=== PATIENT | female | born 1975 | race Caucasian/White ===

== ENCOUNTER 2017-07-20 10:18 | Inpatient (IN) | payer OTHER ==
[2017-07-20 11:32] VITALS: BMI 23.9
--- NOTE | 2017-07-20 15:44 | HP ---
COWS - Scale Resting Pulse: 1= [place] 81-100 Sweatin= Chills/Flushing Restless Observation: 3= Extraneous Movement Pupil Size: 2= Moderately Dilated Bone or Joint Aches: 4=Acute Joint/Muscle Pain Runny Nose/ Eye Tearin= Nasal Congestion GI Upset > 30mins: 0= None Tremor Observation: 2= Slight Tremor Visible Yawning Observation: 1= 1-2x During Session Anxiety or Irritability: 2=Irritable/Anxious Goose Flesh Skin: 0=Smooth Skin COWS Score: 17 CIWA Score - CIWA Score Nausea/Vomitin-Int. Nausea w/Dry Heave Muscle Tremors: 4-Moderate,w/Arms Extend Anxiety: 4-Mod. Anxious/Guarded Agitation: 4-Moderately Restless Paroxysmal Sweats: 1-Minimal Palms Moist Orientation: 0-Oriented Tacttile Disturbances: 3-Moderate Itch/Numb/Burn Auditory Disturbances: 0-None Visual Disturbances: 0-None Headache: 1-Very Mild CIWA-Ar Total Score: 21 Admission ROS S - HPI Chief Complaint: WITHDRAWAL SX Allergies/Adverse Reactions: Allergies Allergy/AdvReac Type Severity Reaction Status Date / Time Fish Containing Products Allergy Severe Itching Verified 07/20/17 12:03 No Known Drug Allergies Allergy Verified 07/20/17 16:10 History of Present Illness: 42 Y/O FEMALE WITH A HX OF HEROIN,XANAX AND COCAINE DEPENDENCE SEEK [facility] [place]. Exam Limitations: No Limitations - Ebola screening Have you traveled outside of the country in the last 21 days: No Have you had contact with anyone from an Ebola affected area: No Have you been sick,other than usual withdrawal symptoms: No - Review of Systems Constitutional: Chills, Loss of Appetite, Night Sweats, Changes in sleep EENT: reports: Blurred Vision (WEARS), Tearing, Nose Congestion, Dental Problems (TOOTH ACHE) Respiratory: reports: Shortness of Breath (ASTHMA/COPD), Wheezing Cardiac: reports: Lightheadedness GI: reports: Constipated, Diarrhea, Nausea, Poor Appetite, Poor Fluid Intake, Vomiting, Abdominal cramping : reports: No Symptoms Reported Musculoskeletal: reports: Back Pain, Joint Pain, Muscle Pain Integumentary: reports: Bruising (IVD INJ SITES ON LEFT NECK AND BOTH ARMS) Neuro: reports: Headache, Numbness, Tingling, Tremors, Unsteady Gait, Dizziness Endocrine: reports: No Symptoms Reported Hematology: reports: No Symptoms Reported Psychiatric: reports: Orientated x3, Anxious, Depressed Other Systems: Reviewed and Negative Patient History - Patient Medical History Hx Anemia: No Hx Asthma: Yes (MDI) Hx Chronic Obstructive Pulmonary Disease (COPD): Yes Hx Cancer: No Hx Cardiac Disorders: No Hx Congestive Heart Failure: No Hx Hypertension: No Hx Hypercholesterolemia: No Hx Pacemaker: No HX Cerebrovascular Accident: No Hx Seizures: No Hx Dementia: No Hx Diabetes: No Hx Gastrointestinal Disorders: No Hx Liver Disease: No Hx Genitourinary Disorders: No Hx Sexually Transmitted Disorders: No Hx Renal Disease (ESRD): No Hx Thyroid Disease: No Hx Human Immunodeficiency Virus (HIV): No (NEGATIVE HX) Hx Hepatitis C: No Hx Depression: Yes (ON MED) Hx Suicide Attempt: No (DENIES) Hx Bipolar Disorder: No Hx Schizophrenia: No - Patient Surgical History Past Surgical History: No Hx Neurologic Surgery: No Hx Cataract Extraction: No Hx Cardiac Surgery: No Hx Lung Surgery: No Hx Breast Surgery: No Hx Breast Biopsy: No Hx Abdominal Surgery: No Hx Appendectomy: No Hx Cholecystectomy: No Hx Genitourinary Surgery: No Hx Section: No Hx Orthopedic Surgery: No Anesthesia Reaction: No - PPD History Previous Implant?: Yes Documented Results: Negative w/proof Implanted On Prior [facility] Admission?: Yes Date: 03/28/14 Results: 0 mm PPD to be Administered?: Yes - Reproductive History Patient is a Female of Child Bearing Age (11 -55 yrs old): Yes Last Menstrual Period: 07/10/17 Patient : No - Smoking Cessation Smoking history: Current every day smoker Have you smoked in the past 12 months: Yes Aproximately how many cigarettes per day: 20 Hx Chewing Tobacco Use: No Initiated information on smoking cessation: Yes 'Breaking Loose' booklet given: 07/20/17 - Substance & Tx. History Hx Alcohol Use: Yes (4 JACQUELYN/TWISTED) Hx Substance Use: Yes Substance Use Type: Alcohol, Cocaine, Heroin Hx Substance Use Treatment: Yes (LAST TX AT [facility]) - Substances Abused Heroin Route: Injection Frequency: Daily Amount used: 10-15 bags Age of first use: 34 Date of Last Use: 07/19/17 Cocaine Route: Injection Frequency: Daily Amount used: $60 Age of first use: 17 Date of Last Use: 07/20/17 Alochol-4 jacquelyn/twisted tea Route: Oral Frequency: 3-6 times per week Amount used: 1 (24 oz.)/1-6 pk. Age of first use: 15 Date of Last Use: 07/20/17 Xanax Route: Oral Frequency: 1-2 times per week Amount used: 4 mg. Age of first use: 40 Date of Last Use: 07/16/17 Family Disease History - Family Disease History Family Disease History: Diabetes: Father, Mother, Heart Disease: Father, Mother , CA: Father, Mother, Respiratory: Mother, Other: Father, Mother Admission Physical Exam S - Vital Signs Vital Signs: Vital Signs - 24 hr 07/20/17 11:28 Temperature 98.8 F Pulse Rate 86 Respiratory 18 Rate Blood Pressure 140/76 - Physical General Appearance: Yes: Moderate Distress, Irritable, Anxious HEENTM: Yes: EOMI, Normocephalic, BERRY, Pharynx Normal, Nasal Congestion, Rhinorrhea Respiratory: Yes: Chest Non-Tender, Lungs Clear, Normal Breath Sounds, No Respiratory Distress Breast: Yes: Breast Exam Deferred Cardiology: Yes: Regular Rhythm, Regular Rate, S1, S2 Abdominal: Yes: Normal Bowel Sounds, Non Tender, Flat Genitourinary: Yes: Other (N/C) Back: Yes: Within Normal Limits Musculoskeletal: Yes: full range of Motion, Gait Steady Extremities: Yes: Normal Range of Motion, Non-Tender Neurological: Yes: events intern II-XII NML intact, Fully Oriented, Alert, Motor Strength 5/5 Integumentary: Yes: Dry, Warm, Track [place] (LEFT NECK AND BOTH ARMS.) Lymphatic: Yes: Within Normal Limits - Diagnostic (1) Asthma Current Visit: Yes Status: Chronic Qualifiers: Asthma severity: mild Asthma persistence: unspecified Asthma complication type: uncomplicated (2) Cocaine dependence Current Visit: Yes Status: Chronic Qualifiers: Substance use status: uncomplicated Qualified Code(s): F14.20 - Cocaine dependence, uncomplicated (3) Nicotine dependence Current Visit: Yes Status: Acute Qualifiers: Nicotine product type: cigarettes Substance use status: uncomplicated Qualified Code(s): F17.210 - Nicotine dependence, cigarettes, uncomplicated (4) Opioid dependence with withdrawal Current Visit: Yes Status: Chronic (5) Alcohol dependence with uncomplicated withdrawal Current Visit: Yes Status: Chronic (6) Sedative, hypnotic or anxiolytic dependence with withdrawal, uncomplicated Current Visit: Yes Status: Chronic Comment: TOXICOLOGY NEGATIVE TODAY (7) COPD (chronic obstructive pulmonary disease) Current Visit: Yes Status: Chronic Cleared for Admission [facility] - Detox or Rehab [facility] Level of Care: Medically Managed Detox Regimen/Protocol: Methadone/Valium (REQUESTING VALIUM INSTEAD OF LIBRIUM.) [facility] Breath Alcohol Content Breath Alcohol Content: 0 Urine Pregancy Test - Result Urine Test Results: Negative- NO Line Present Urine Drug Screen - Results Drug Screen Negative: No Urine Drug Screen Results: NEHA-Cocaine, OPI-Opiates, OXY-Oxycodone
[2017-07-20] MEDS ORDERED: MAGNESIUM CITRATE 300 ML BOTTLE PO PRN (16:01)
[2017-07-20] MEDS ORDERED: LOPERAMIDE HCL 2 MG CAPSULE PO PRN (16:01)
[2017-07-20] MEDS ORDERED: MENTHOL/PHENOL 1 EACH UD MM PRN (16:01)
[2017-07-20] MEDS ORDERED: MAG HYDROX/AL HYDROX/SIMETH 30 ML UNIT-DOSE CUP PO PRN (16:01)
[2017-07-20] MEDS ORDERED: ACETAMINOPHEN 325 MG TABLET (FP) PO PRN (16:01)
[2017-07-20] MEDS ORDERED: NICOTINE POLACRILEX 4 MG GUM BC PRN (16:01)
[2017-07-20] MEDS ORDERED: guaiFENesin/D-METHORPHAN HB 10 ML UNIT-DOSE CUPS PO PRN (16:01)
[2017-07-20] MEDS ORDERED: MAGNESIUM HYDROX 2400MG/30ML ORAL SUSPENSION 30 ML CUP PO PRN (16:01)
[2017-07-20] MEDS ORDERED: IBUPROFEN 400 MG TABLET (FP) PO PRN (16:01)
[2017-07-20] MEDS ORDERED: P-EPHED 60MG/TRIPROLIDI 2.5MG TABLET PO PRN (16:01)
[2017-07-20] MEDS ORDERED: ALBUTEROL SO4 18 GM HFA INHALER IH PRN (16:09)
[2017-07-20] MEDS ORDERED: diazePAM 5 MG TABLET PO ONE (17:00)
[2017-07-20] MEDS ORDERED: METHADONE HCL 10 MG TABLET (FOR DETOX USE ONLY) PO ONE ×2 (17:00→23:00)
[2017-07-20] MEDS: GABAPENTIN 300 MG CAPSULE (FP) PO SCH ×2 (17:03→22:25)
[2017-07-20] MEDS: LEVOFLOXACIN 500 MG TABLET (FP) PO SCH (17:03)
[2017-07-20] MEDS: BACITRACIN 0.9 GM PACKET TP SCH (17:08)
[2017-07-20] MEDS: NICOTINE 21 MG/24 HOURS TOPICAL PATCH TD SCH (17:12)
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
[2017-07-20 21:21] LABS: ALBUMIN 3.7 g/dl (3.4-5.0); ANION GAP 4 (8-16); BLOOD UREA NITROGEN 23 mg/dL (7-18); CHLORIDE 103 mmol/L (98-107); CO2 33 mmol/L (21-32); GLUCOSE,RANDOM 103 mg/dL (74-106); SODIUM 140 mmol/L (136-145)
[2017-07-20 21:23] LABS: ALK PHOS 97 U/L (45-117); BILIRUBIN,TOTAL 0.3 mg/dL (0.2-1.0); CREATININE 0.9 mg/dL (0.55-1.02); SGOT/AST 38 U/L (15-37); SGPT/ALT 84 U/L (12-78); TOT PROT 7.4 g/dl (6.4-8.2)
[2017-07-20] MEDS: diazePAM 5 MG TABLET PO SCH (22:25)
[2017-07-20] MEDS: THIAMINE HCL 100 MG TABLET (FP) PO SCH (22:25)
[2017-07-20] MEDS: CYCLOBENZAPRINE HCL 10 MG TABLET (FP) PO SCH (22:26)
[2017-07-20] MEDS: QUEtiapine FUMARATE 50 MG TABLET PO SCH (22:26)
[2017-07-21 01:34] LABS: URINE APPEARANCE CLOUDY; URINE BILIRUBIN NEGATIVE (NEGATIVE); URINE BLOOD NEGATIVE (NEGATIVE); URINE GLUCOSE (UA) NEGATIVE (NEGATIVE); URINE KETONE NEGATIVE (NEGATIVE); URINE NITRITE NEGATIVE (NEGATIVE); URINE UROBILINOGEN NEGATIVE mg/dL (0.2-1.0)
[2017-07-21 01:46] LABS: URINE COLOR YELLOW; URINE LEUK ESTERASE 3+ (NEGATIVE); URINE PROTEIN 1+ (NEGATIVE)
[2017-07-21 01:59] LABS: CALCIUM OXALATE CRYSTALS FEW /hpf (NONE SEEN); EPI CELLS MANY /HPF (FEW); URINE BACTERIA RARE /hpf (NONE SEEN); URINE MUCUS FEW
[2017-07-21] MEDS: diazePAM 5 MG TABLET PO SCH ×3 (06:35→22:15)
[2017-07-21] MEDS: LEVOFLOXACIN 500 MG TABLET (FP) PO SCH (06:35)
[2017-07-21] MEDS: GABAPENTIN 300 MG CAPSULE (FP) PO SCH ×3 (06:35→22:15)
[2017-07-21] MEDS ORDERED: PRENATAL VITAMINS W/ FOLIC ACID TABLET (FP) PO SCH (10:00)
[2017-07-21] MEDS ORDERED: METHADONE HCL 10 MG TABLET (FOR DETOX USE ONLY) PO SCH (10:00)
--- NOTE | 2017-07-21 10:08 | EKG ---
Test Reason : Blood Pressure : / mmHG Vent. Rate : 061 BPM Atrial Rate : 061 BPM P-R Int : 154 ms QRS Dur : 076 ms QT Int : 396 ms P-R-T Axes : 070 061 038 degrees QTc Int : 398 ms NORMAL SINUS RHYTHM NORMAL ECG NO PREVIOUS ECGS AVAILABLE Confirmed by CY MCWILLIAMS, EMMANUEL ([id number]) on 07/21/2017 10:08:35 AM Referred By: Confirmed By:EMMANUEL BENOIT MD
[2017-07-21 10:10] LABS: HEMATOCRIT 38.1 % (32.4-45.2); HEMOGLOBIN 12.4 GM/dL (10.7-15.3); MCHC 32.6 g/dl (32.0-36.0); MEAN CELL VOLUME 88.9 fl (80-96); MEAN PLT VOLUME 9.4 fl (7.5-11.1); PLATELET COUNT 250 K/MM3 (134-434); RBC 4.28 M/mm3 (3.60-5.2); RDW 14.6 % (11.6-15.6); WHITE BLOOD COUNT 9.7 K/mm3 (4.0-10.0)
--- NOTE | 2017-07-21 11:01 | PN ---
[facility] CIWA - CIWA Score Nausea/Vomitin-No Nausea/No Vomiting Muscle Tremors: 4-Moderate,w/Arms Extend Anxiety: 3 Agitation: 3 Paroxysmal Sweats: 3 Orientation: 0-Oriented Tacttile Disturbances: 0-None Auditory Disturbances: 0-None Visual Disturbances: 0-None Headache: 1-Very Mild CIWA-Ar Total Score: 14 BHS COWS - Scale Resting Pulse: 0= RI 80 or Below Sweatin=Flushed/Facial Moisture Restless Observation: 1= Difficult to Sit Still Pupil Size: 0= Normal to Room Light Bone or Joint Aches: 2= Severe Diffuse Aches Runny Nose/ Eye Tearin= Runny Nose/Eyes GI Upset > 30mins: 0= None Tremor Observation of Outstretched Hands: 2= Slight Tremor Visible Yawning Observation: 2= >3x During Session Anxiety or Irritability: 2=Irritable/Anxious Goose Flesh Skin: 0=Smooth Skin COWS Score: 13 S Progress Note (SOAP) Subjective: sweats shakes interrupted sleep agitation anxiety body aches Objective: 07/21/17 11:00 Vital Signs Temperature 98.3 F 07/21/17 06:19 Pulse Rate 68 07/21/17 06:19 Respiratory Rate 16 07/21/17 06:19 Blood Pressure 113/61 07/21/17 06:19 O2 Sat by Pulse Oximetry (%) Laboratory Tests 07/20/17 07/20/17 07/21/17 13:00 23:35 05:45 WBC 9.7 RBC 4.28 Hgb 12.4 Hct 38.1 MCV 88.9 MCH 29.0 MCHC 32.6 RDW 14.6 Plt Count 250 MPV 9.4 Sodium 140 Potassium 4.0 Chloride 103 Carbon Dioxide 33 H Anion Gap 4 L BUN 23 H Creatinine 0.9 D Creat Clearance w eGFR > 60 Random Glucose 103 Calcium 9.0 Total Bilirubin 0.3 AST 38 H ALT 84 H D Alkaline Phosphatase 97 D Total Protein 7.4 Albumin 3.7 Urine Color Yellow Urine Appearance Cloudy Urine pH 5.0 Ur Specific [place] 1.027 Urine Protein 1+ H Urine Glucose (UA) Negative Urine Ketones Negative Urine Blood Negative Urine Nitrite Negative Urine Bilirubin Negative Urine Urobilinogen Negative Ur Leukocyte Esterase 1+ H Urine WBC (Auto) 227 Urine RBC (Auto) 38 Ur Epithelial Cells Many Calcium Oxalate Crystal Few Urine Bacteria Rare Urine Mucus Few repeat u/a aaox3 ambulating no acute distress Assessment: 07/21/17 11:00 withdrawal sx Plan: continue detox increase fluids labs pending
[2017-07-21] MEDS: BACITRACIN 0.9 GM PACKET TP SCH (11:05)
[2017-07-21] MEDS: diazePAM 5 MG TABLET PO PRN ×2 (11:05→15:52)
[2017-07-21] MEDS: CYCLOBENZAPRINE HCL 10 MG TABLET (FP) PO SCH ×2 (11:05→22:15)
[2017-07-21] MEDS: NICOTINE 21 MG/24 HOURS TOPICAL PATCH TD SCH (11:06)
[2017-07-21] MEDS ORDERED: FLU VACCINE QUAD 60 MCG/0.5 ML (MDV 17-18) IM ONE (12:00)
[2017-07-21] MEDS: hydrOXYzine PAMOATE 50 MG CAPSULE (FP) PO PRN ×2 (15:52→20:35)
[2017-07-21 17:44] LABS: URINE APPEARANCE CLOUDY; URINE BILIRUBIN NEGATIVE (NEGATIVE); URINE BLOOD NEGATIVE (NEGATIVE); URINE COLOR YELLOW; URINE GLUCOSE (UA) NEGATIVE (NEGATIVE); URINE KETONE NEGATIVE (NEGATIVE); URINE NITRITE NEGATIVE (NEGATIVE); URINE PROTEIN NEGATIVE (NEGATIVE); URINE UROBILINOGEN NEGATIVE mg/dL (0.2-1.0)
[2017-07-21 17:45] LABS: URINE LEUK ESTERASE 3+ (NEGATIVE)
[2017-07-21 18:05] LABS: EPI CELLS MANY /HPF (FEW); URINE BACTERIA RARE /hpf (NONE SEEN); URINE MUCUS RARE
[2017-07-21] MEDS: QUEtiapine FUMARATE 50 MG TABLET PO SCH (22:15)
[2017-07-21] MEDS: THIAMINE HCL 100 MG TABLET (FP) PO SCH (22:15)
[2017-07-22] MEDS: LEVOFLOXACIN 500 MG TABLET (FP) PO SCH (05:49)
[2017-07-22] MEDS: GABAPENTIN 300 MG CAPSULE (FP) PO SCH (05:49)
[2017-07-22] MEDS: diazePAM 5 MG TABLET PO PRN (05:52)
[2017-07-22 06:34] VITALS: BP 142/88; PULSE 69; TEMP 96.4
[2017-07-22] MEDS: hydrOXYzine PAMOATE 50 MG CAPSULE (FP) PO PRN (08:12)
--- NOTE | 2017-07-22 09:27 | PN ---
Psychiatric Progress Note Vital Signs: Vital Signs Period Temp Pulse Resp BP Sys/Cameron Pulse Ox Last 24 Hr 96.4 F-98.2 F 69-88 16- 102-142/54-88 Date of Session: 07/22/17 Chief Complaint:: Anxiety, irritability, agitation HPI: As per patient reports she has been taking prior to admission: Seroquel 100mg po bid. Trazodone 100mg po qhs Current Medications: Active Medications Generic Name Dose Route Start Last Admin Trade Name Freq PRN Reason Stop Dose Admin Acetaminophen 650 mg 07/20/17 16:01 Tylenol - PO Q4H PRN FEVER OR PAIN Al Hydroxide/Mg Hydroxide 30 ml 07/20/17 16:01 07/20/17 17:05 Mylanta Oral Suspension - PO 30 ml Q6H PRN Administration DYSPEPSIA Albuterol Sulfate 2 puff 07/20/17 16:09 07/21/17 22:28 Ventolin Hfa Inhaler - IH 2 puff Q4H PRN Administration ASTHMA Bacitracin 0.9 gm 07/20/17 17:00 07/21/17 11:05 Bacitracin - TP 0.9 gm DAILY MARISEL Administration Cyclobenzaprine HCl 10 mg 07/20/17 22:00 07/21/17 22:15 Flexeril - PO 10 mg BID MARISEL Administration Diazepam 5 mg 07/22/17 10:00 Valium - PO 07/23/17 22:01 BID MARISEL Diazepam 5 mg 07/24/17 10:00 Valium - PO 07/24/17 10:01 DAILY MARISEL Diazepam 10 mg 07/20/17 16:12 07/22/17 05:52 Valium - PO 07/23/17 16:14 10 mg Q4H PRN Administration WITHDRAWAL(CONT SUBST) Eucalyptus/Menthol/Phenol/Sorbitol 1 each 07/20/17 16:01 Cepastat Lozenge - MM Q4H PRN SORE THROAT Gabapentin 300 mg 07/20/17 17:00 07/22/17 05:49 Neurontin - PO 300 mg TID MARISEL Administration Guaifenesin 10 ml 07/20/17 16:01 Robitussin Dm - PO Q6H PRN COUGH Hydroxyzine Pamoate 50 mg 07/21/17 15:36 07/22/17 08:12 Vistaril - PO 50 mg Q4H PRN Administration FOR ITCHING Ibuprofen 400 mg 07/20/17 16:01 07/21/17 18:01 Motrin - PO 400 mg Q6H PRN Administration SEVERE PAIN Levofloxacin 500 mg 07/20/17 17:00 07/22/17 05:49 Levaquin - PO 500 mg DAILY@0600 [facility] Administration Loperamide HCl 4 mg 07/20/17 16:01 Imodium - PO Q6H PRN DIARRHEA Magnesium Citrate 300 ml 07/20/17 16:01 Citroma - PO Q48H PRN CONSTIPATION Magnesium Hydroxide 30 ml 07/20/17 16:01 Milk Of Magnesia - PO DAILY PRN CONSTIPATION Methadone HCl 10 mg 07/24/17 10:00 Dolophine - PO 07/24/17 10:01 DAILY MARISEL Methadone HCl 15 mg 07/22/17 10:00 Dolophine - PO 07/23/17 10:01 DAILY MARISEL Methadone HCl 5 mg 07/25/17 06:00 Dolophine - PO 07/25/17 06:01 DAILY@0600 [facility] Nicotine 21 mg 07/20/17 16:30 07/21/17 11:06 Nicoderm Patch - TD 21 mg DAILY [facility] Administration Nicotine Polacrilex 4 mg 07/20/17 16:01 07/20/17 17:50 Nicorette Gum - BC 4 mg Q2H PRN Administration NICOTINE REPLACEMENT RX Multivit/Folic Acid/Iron 1 tab 07/21/17 10:00 07/21/17 11:05 Vitamins (Sjr) - PO 1 tab DAILY [facility] Administration Pseudoephedrine/Triprolidine 1 combo 07/20/17 16:01 Actifed - PO TID PRN NASAL CONGESTION Quetiapine Fumarate 100 mg 07/22/17 10:00 Seroquel - PO BID MARISEL Thiamine HCl 100 mg 07/20/17 22:00 07/21/17 22:15 Vitamin B1 - PO 100 mg HS [facility] Administration Trazodone HCl 100 mg 07/22/17 22:00 Desyrel - PO HS [facility] Medication(s) Change(s): Seroquel 100mg po bid. Trazodone 100mg po qhs. Vistaril 50mg po p[rn q4 for anxiety Mental Status Exam - Mental Status Exam Alert and Oriented to: Person Cognitive Function: Fair Patient Appearance: Unkempt Mood: Anxious Affect: Labile Patient Behavior: Impulsive Speech Pattern: Excessive Voice Loudness: Mildly Loud Thought Process: Goal Oriented Thought Disorder: Being Controlled Hallucinations: Denies Suicidal Ideation: Denies Homicidal Ideation: Denies Insight/Judgement: Fair Sleep: Difficulty falling asleep Appetite: Fair Muscle strength/Tone: Normal Gait/Station: Normal Additional Comments: Seroquel 100mg po bid. Trazodone 100mg po qhs. Vistaril 50mg po p[rn q4 for anxiety Psychiatric Treatment Plan - Problem List (1) Nicotine dependence Current Visit: Yes Qualifiers: Nicotine product type: cigarettes Substance use status: uncomplicated Qualified Code(s): F17.210 - Nicotine dependence, cigarettes, uncomplicated (2) Opioid dependence on agonist therapy Current Visit: Yes (3) Substance induced mood disorder Current Visit: Yes (4) Alcohol dependence with uncomplicated withdrawal Current Visit: Yes (5) Cocaine dependence Current Visit: Yes Qualifiers: Substance use status: uncomplicated Qualified Code(s): F14.20 - Cocaine dependence, uncomplicated (6) Opioid dependence with withdrawal Current Visit: Yes (7) Sedative, hypnotic or anxiolytic dependence with withdrawal, uncomplicated Current Visit: Yes Comment: TOXICOLOGY NEGATIVE TODAY (8) Substance-induced sleep disorder Current Visit: No (9) Methadone maintenance therapy patient Current Visit: No Initial treatment plan: Seroquel 100mg po bid. Trazodone 100mg po qhs. Vistaril 50mg po p[rn q4 for anxiety
[2017-07-22] MEDS ORDERED: QUEtiapine FUMARATE 100 MG TABLET (FP) PO SCH (10:00)
[2017-07-22] MEDS ORDERED: METHADONE HCL 5 MG TABLET (FOR DETOX USE ONLY) PO SCH (10:00)
[2017-07-22] MEDS ORDERED: diazePAM 5 MG TABLET PO SCH (10:00)
--- NOTE | 2017-07-22 11:36 | PN ---
[facility] Progress Note Note: pt became irrate and yelling to staff I want to leave i am signing out. Pt was spoken to and asked her reason for leaving but she continued to insist on leaving. pt signed out AMA.
--- NOTE | 2017-07-22 11:37 | DS ---
[facility] Detox Discharge Summary Admission Date: 07/20/17 - History Present History: Alcohol Dependence, Cocaine Dependence, Sedative Dependence, MMTP - Physical Exam Results Vital Signs: Vital Signs Temperature 96.4 F L 07/22/17 06:34 Pulse Rate 69 07/22/17 06:34 Respiratory Rate 18 07/22/17 06:34 Blood Pressure 142/88 07/22/17 06:34 O2 Sat by Pulse Oximetry (%) - Medication Discharge Medications: Ambulatory Orders Albuterol Sulfate Inhaler - [Ventolin Hfa *Inhaler*] 2 inh IH Q4H PRN 02/11/12 Trazodone HCl [Desyrel -] 50 mg PO HS 03/26/14 Quetiapine Fumarate [Seroquel] 100 tab PO BID #60 tablet 06/18/16 Cyclobenzaprine HCl [Flexeril -] 10 mg PO BID 07/20/17 Gabapentin [Neurontin] 300 mg PO Q8H 07/20/17 Quetiapine Fumarate [Seroquel Xr] 1 each PO BID #60 [id number] 07/22/17 Trazodone HCl [Desyrel -] 100 mg PO HS #30 tablet 07/22/17 Zolpidem Tartrate [Ambien] 10 mg PO HS #14 tablet MDD 10 07/22/17 - Diagnosis (1) Alcohol dependence with uncomplicated withdrawal Status: Chronic (2) Cellulitis and abscess of neck Status: Acute (3) Cocaine dependence Status: Chronic Qualifiers: Substance use status: uncomplicated Qualified Code(s): F14.20 - Cocaine dependence, uncomplicated (4) Nicotine dependence Status: Acute Qualifiers: Nicotine product type: cigarettes Substance use status: uncomplicated Qualified Code(s): F17.210 - Nicotine dependence, cigarettes, uncomplicated (5) Opioid dependence on agonist therapy Status: Acute (6) Opioid dependence with withdrawal Status: Chronic (7) Sedative, hypnotic or anxiolytic dependence with withdrawal, uncomplicated Status: Chronic (8) Substance induced mood disorder Status: Acute (9) Asthma Status: Chronic Qualifiers: Asthma severity: mild Asthma persistence: unspecified Asthma complication type: uncomplicated Qualified Code(s): J45.909 - Unspecified asthma, uncomplicated (10) Substance-induced sleep disorder Status: Acute (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
[2017-07-22] MEDS ORDERED: traZODone HCL 100 MG TABLET (FP) PO SCH (22:00)
[2017-07-24] MEDS ORDERED: METHADONE HCL 10 MG TABLET (FOR DETOX USE ONLY) PO SCH (10:00)
[2017-07-24] MEDS ORDERED: diazePAM 5 MG TABLET PO SCH (10:00)
[2017-07-25] MEDS ORDERED: METHADONE HCL 5 MG TABLET (FOR DETOX USE ONLY) PO SCH (06:00)
== END 2017-07-22 08:41 | disposition left against medical advice (07) | DRG 770 ==
LOC: YASAS 10:18 → Y6N 13:12
PROVIDERS: ADMIT Internal Medicine; ATTEND Internal Medicine
PROC: HZ2ZZZZ Detoxification Services for Substance Abuse Treatment (ICD-10-PCS; principal; 2017-07-20)
DX: F11.23 Opioid dependence with withdrawal (principal); F13.230 Sedative, hypnotic or anxiolytic dependence with withdrawal, uncomplicated; F10.230 Alcohol dependence with withdrawal, uncomplicated; F14.20 Cocaine dependence, uncomplicated; F17.210 Nicotine dependence, cigarettes, uncomplicated; F19.24 Other psychoactive substance dependence with psychoactive substance-induced mood disorder; F19.282 Other psychoactive substance dependence with psychoactive substance-induced sleep disorder; J45.909 Unspecified asthma, uncomplicated; J44.9 Chronic obstructive pulmonary disease, unspecified; L03.221 Cellulitis of neck; L02.11 Cutaneous abscess of neck; Z91.013 Allergy to seafood
CPT/HCPCS: 36415; 80053; 81003; 81015; 85027; 86593; 86803; 87389; 87522; 90688; 93005; 93010; G0008

== ENCOUNTER 2020-05-13 17:14 | Inpatient (IN) | payer OTHER ==
--- OUTSIDE RECORDS SUMMARY | 2020-05-13 17:22 | XMS ---
:1975 Author Organization [facility] Care Team Providers Name Role Phone Mahdi POPPY Elliott Unavailable Unavailable Mahdi POPPY Elliott Unavailable Unavailable Mahdi POPPY Elliott Unavailable Unavailable Mahdi POPPY Elliott Unavailable Unavailable Mahdi POPPY Elliott Unavailable Unavailable Mahdi POPPY Elliott Unavailable Unavailable Mahdi POPPY Elliott Unavailable Unavailable Rich Sernaaruraanibal Unavailable Unavailable Sabrina Appiah Unavailable Unavailable Landno Irvin Unavailable Unavailable HHCCC, MHAW9 Unavailable Unavailable Albert, Bora Unavailable Unavailable Danyel Lopez Unavailable Unavailable Other, Doctor Unavailable Unavailable Philipp, Codie Unavailable Unavailable Suraj Pozo Unavailable Unavailable Benjamin Kilgore Unavailable Unavailable Re-disclosure Warning The records that you are about to access may contain information from federally- assisted alcohol or drug abuse programs. If such information is present, then the following federally mandated warning applies: This information has been disclosed to you from records protected by federal confidentiality rules (42 CFR part 2). The federal rules prohibit you from making any further disclosure of this information unless further disclosure is expressly permitted by the written consent of the person to whom it pertains or as otherwise permitted by 42 CFR part 2. A general authorization for the release of medical or other information is NOT sufficient for this purpose. The Federal rules restrict any use of the information to criminally investigate or prosecute any alcohol or drug abuse patient.The records that you are about to access may contain highly sensitive health information, the redisclosure of which is protected by Article 27-F of the [facility] Public Health law. If you continue you may haveaccess to information: Regarding HIV / AIDS; Provided by facilities licensed or operated by the [facility] Office of Mental Health; or Provided by the [facility] Office for People With Developmental Disabilities. If such information is present, then the following [facility] mandated warning applies: This information has been disclosed to you from confidential records which are protected by state law. State law prohibits you from making any further disclosure of this information without the specific written consent of the person to whom it pertains, or as otherwise permitted by law. Any unauthorized further disclosure in violation of state law may result in a fine or senior living sentence or both. A general authorization for the release of medical or other information is NOT sufficient authorization for further disclosure. Family History Family Member Family Member Family Member Date of Description Data Source(s) Name Gender Status Status Unknown Male Diagnosis 04/13/2014 [facility] ( 12:00:00 AM Health system EDT Center) Encounters Encounter Providers Location Date Indications Data Source(s ) Outpatient Attender: MHAW9 05/06/2020 [facility] ([facility] 05:44:53 PM [facility] Care EDT Collaborative) Patient admitted. Outpatient Attender: Danyel Reyes-SURG CL 05/01/2020 03:08:53 S - Annalisa Mallory Nnaemeka PM EDT - 05/02/2020 [facility] 11:59:00 PM EDT Patient discharged. Inpatient Attender: Benjamin Caceres 04/28/2020 L03.90 S - Marcelina mensah OranAttender: Suraj 05:22:00 PM EDT Cellulitis a nd Mohamud Heard: Doctor - 04/30/2020 abscess Hospital OtherAdmitter: Benjamin 12:36:00 PM EDT Jame L03.90 Cellulitis and abscess Patient discharged. Inpatient Attender: Landon Reyes-Eric 04/25/2020 L03.90 Cellulitis [facility] - Annalisa Lindattender: Codie 07:05:00 PM EDT - Mohamud Valdivia: 04/27/2020 Hospit al OtherAdmitter: 11:30:00 AM EDT Landon Irvin L03.90 Cellulitis Patient discharged. Outpatient Attender: MHAW9 [facility] 03/02/2020 12:53:54 PM [facility] ([facility] EDT [facility]) Patient admitted. Unlisted evaluation 02/15/2020 03:35:00 [facility] (The Guidance and management EDT [facility]) service Outpatient Attender: MHAW9 10/20/2019 07:05:42 [facility] ([facility] EDT [facility]) Patient admitted. Outpatient 05/03/2019 02:37:32 PM EDT [facility] ([facility]) Patient admitted. Outpatient 05/03/2019 02:37:29 PM EDT [facility] ([facility]) Patient admitted. Outpatient 05/03/2019 02:37:23 PM EDT [facility] ([facility]) Patient admitted. Outpatient 05/03/2019 02:37:20 PM EDT [facility] ([facility]) Patient admitted. Outpatient 05/03/2019 02:30:15 PM EDT [facility] ([facility]) Patient admitted. Outpatient 05/03/2019 02:30:11 PM EDT [facility] ([facility]) Patient admitted. Outpatient Attender: Sabrina Appiah 5T-WOUND 04/04/2019 12:36:01 PM MICHAEL Mallory EDT - 04/07/2019 [facility] 03:48:00 PM EDT Patient discharged. Outpatient Attender: Mahdi Reyes-WOUND 03/30/2019 09:15:10 AM MICHAEL Elliott MD EDT - 03/31/2019 [facility]ospita l 11:59:00 PM EDT Patient discharged. Outpatient Attender: Mahdi Reyes-WOUND 03/23/2019 03:43:14 PM MICHAEL Elliott MD EDT - 03/24/2019 Hospita l 11:59:00 PM EDT Patient discharged. Unlisted evaluation 03/21/2019 JASMIN ART (The and management 03:30:00 PM EDT - [facility] service 05/17/2019 [facility]) 01:00:00 PM EDT Outpatient Attender: Mahdi Reyes-WOUND 03/17/2019 MICHAEL - Marcelinakaty Elliott MD 08:19:11 AM EDT - Hospit al 03/17/2019 11:59:00 PM EDT Patient discharged. Unlisted evaluation 03/10/2019 NETS ART (The and management 01:00:00 PM EDT - [facility] 03/21/2019 [facility]) 03:30:00 PM EDT Outpatient Attender: 5T-WOUND 03/07/2019 S - Marcelina nt Mohamud Elliott MD 01:09:47 PM EDT - Hospit al 03/10/2019 11:59:00 PM EDT Patient discharged. Inpatient Attender: Giacomo Eric-5T 02/27/2019 L03.115 [facility]: Bora 06:55:00 PM EDT Cellu litis of Mohamud DysonAdmitter: - 03/05/2019 leg, right Hospital [facility] 04:35:00 PM EDT L03.115 Cellulitis of leg, right Patient discharged. Medications Medication Brand Start Product Dose Route Administrative Pharmacy at Indications Reaction Description Data Name Date Form Instructions Instructions Source(s) Sulfamethox sulfam F86753 active Sulfa methoxa [facility] azole 800 ethoxa 2019 {tab( zole-Trimeth [facility] MG / zole-t 08:02: s)} oprim DS System Trimethopri rimeth 39 AM m 160 MG oprim EDT Oral Tablet 800 sulfamethox mg-160 azole-trime mg thoprim 800 oral mg-160 mg tablet oral tablet 24 HR nicoti [id number] active Nicoderm C- Q [facility] Nicotine ne 14 2019 {PATC Clear [facility] 0.583 MG/HR mg/24 08:01: H} Syste m Transdermal hr 19 AM Patch transd EDT nicotine 14 ermal mg/24 hr film, transdermal extend film, ed extended releas release e Albuterol [id number] X13129 active Albuter ol [facility] (Eqv-ProAir 62902 2019 {puff (Eqv-ProAir Health HFA) 90 08:00: (s)} HFA) System mcg/inh 26 AM inhalation EDT aerosol Albuterol Ventolin 03/05/2019 1 [id number] completed Ventolin HFA; 1 inhaled 2 times a day MDD:UP TO 6 TIMES/DAY PRN Ordered: 05-Mar-2019 Start: 05-Mar-20 End: 03-Apr-2019 [facility] Ventolin HFA 02:28:53 PM Quantity: 1 Vineet Naylor Status: No Longer Active Health HFA EDT Refills: 0 System Mupirocin mupirocin 03/05/2019 1 {ana} [id number] completed Mupirocin [facility] 0.02 MG/MG 2% topical 02:27:10 PM Health Topical ointment EDT System Ointment mupirocin 2% topical ointment Albuterol 0.833 MG/ML ipratropium-albuterol 03/05/2019 1 [id number] completed ipratropium-albuterol 0.5 mg-2.5 mg/3 mLinhalation solution; 1 inhaled 2 times a day Ordered: 05-Mar-2019 Start: 05-Mar-2019 End: 03-Apr-2019 [facility] / Ipratropium [place] 0.5 mg-2.5 mg/3 02:26:13 PM Quantity: 1 Dayday Vineet Status: No Longer Active Health 0.167 MG/ML Inhalant mLinhalation solution EDT Refills: 0 System Solution ipratropium-albuterol 0.5 mg-2.5 mg/3 mLinhalation solution Acetaminophen acetaminophen 03/05/2019 2 I00401 completed Acetaminophen [facility] 325 MG Oral 325 mg oral 02:25:54 PM {tab(s)} Health Tablet tablet EDT System acetaminophen 325 mg oral tablet Insurance Providers Payer name Policy type / Policy ID Covered Covered alliance party's Policy Plan Coverage type alliance party ID relationship to [employer] Information zacarias [facility] [id number] [facility] Medicaid Medicaid [id number] Medicaid Medicaid [id number] 1 [id number] [facility] Commercial [id number] Medicaid E Medicaid [id number] [facility] MEDICAID [id number] [facility] [place] [id number] SP [id number] [facility] MEDICAID [id number] [facility] [id number] self [id number] [facility] Commercial [id number] Ess Plan 1&2 MVP/HHP O [id number] Problems, Conditions, and Diagnoses Code Display Name Description Problem Type Effective Data Sour ce(s) Dates L03.221 Cellulitis and Cellulitis and 48163-0 05/02/2020 [facility] abscess of neck abscess of neck 12:00:00 AM a [facility] System EDT L02.91 Phlegmon Phlegmon 97737-0 04/28/2020 [facility] 12:00:00 AM Health System EDT L03.90 Cellulitis and Cellulitis and 33579-6 04/28/2020 [facility] abscess abscess 12:00:00 AM Health System EDT R22.1 Neck swelling Neck swelling 98666-2 04/26/2020 [facility] 12:00:00 AM Health System EDT L03.90 Cellulitis Cellulitis 20131-1 [facility]T [id number] Cocaine dependence Cocaine dependence Complaint 9 [facility] (The 07:30:00 PM Guidance EDT Center [facility]) [id number] Alcohol dependence Alcohol dependence Complaint 9 [facility] (The 07:30:00 PM Guidance EDT Center [facility]) [id number] Opioid dependence Opioid dependence Complaint 03/16/2019 [facility] (The 07:10:00 PM Guidance EDT Center [facility]) L03.221 Cellulitis of neck Cellulitis and Diagnosis 05/02/2020 [facility] abscess of neck 03:20:00 PM [facility] [id number] Percutaneous Percutaneous Diagnosis [facility] of 12:00:00 AM [place] posterior neck posterior neck EDT Hospit al subcutaneous subcutaneous tissue and fascia tissue and fascia using drainage using drainage device device F11.10 Opioid abuse, Uncomplicated Diagnosis 04/28/2020 [facility] - [place] unt uncomplicated opioid abuse 07:45:00 PM [facility] F17.200 Nicotine Nicotine Diagnosis 04/28/2020 [facility] dependence, dependence, 07:45:00 PM [place] unspecified, uncomplicated EDT Hospital uncomplicated L03.90 Cellulitis L03.90 Cellulitis Diagnosis 04/28/2020 [facility] and abscess and abscess 07:45:00 PM [facility] L02.91 Cutaneous abscess, Phlegmon Diagnosis 04/28/2020 [facility] unspecified 07:45:00 PM [facility] J44.9 Chronic Chronic Diagnosis 04/28/2020 [facility] obstructive obstructive 07:45:00 PM [place] pulmonary disease, pulmonary disease T [facility] unspecified L03.90 Cellulitis, Cellulitis and Diagnosis 04/28/2020 [facility] Marcelina nt unspecified abscess 07:45:00 PM [facility] GROWTH ON NECK GROWTH ON NECK Diagnosis 04/28/2020 [facility] 05:22:00 PM [facility] F19.90 Other psychoactive Other psychoactive Diagnosis 0 [facility] substance use, substance use, 03:31:00 AM [place] unspecified, uncomplicated T Hospital uncomplicated F11.20 Opioid dependence, Uncomplicated Diagnosis 04/26/2020 [facility] uncomplicated opioid dependence 03:31:00 AM [facility] R22.1 Localized Neck swelling Diagnosis 04/26/2020 [facility] swelling, mass and 03:31:00 AM [place] lump, neck T Hospital L03.90 Cellulitis L03.90 Cellulitis Diagnosis 04/26/2020 [facility] 03:31:00 AM [facility] SWELLING TO SWELLING TO Diagnosis 04/25/2020 [facility] NECK/SHOULDER NECK/SHOULDER 07:05:00 PM [facility] L03.115 Cellulitis of Cellulitis of Diagnosis 04/07/2019 [facility] unt right lower limb right lower limb 12:00:00 AM [facility] Surgeries/Procedures Procedure Description Date Indications Data Source(s) Tissue Exam 04/30/2020 10:00:30 [facility] AM EDT - 04/29/2020 03:40:00 PM EDT Culture, Wound 04/29/2020 04:12:21 [facility] PM EDT - 04/29/2020 03:00:00 PM EDT Source Description: c/a wound left side neck baseSpecimen Description: c/s wound left side neck base Electrocardiographic procedure 04/28/2020 09:13:00 PM [facility] (procedure) EDT - 04/29/2020 System 04:31:06 AM EDT Computed tomography of soft 04/26/2020 02:07:00 AM [facility] tissues of neck (procedure) EDT - 04/26/2020 System 02:07:00 AM EDT C-Reactive Protein Quantitative 04/25/2020 09:21:50 PM [facility] EDT - 04/25/2020 System 11:13:00 PM EDT Sedimentation Rate, Erythrocyte 04/25/2020 09:21:50 PM [facility] EDT - 04/25/2020 System 11:13:00 PM EDT Results ID Date Data Source [id number] 02/27/2019 08:40:00 [facility] Name Value Range Interpretation Description Data Sup porting Code Source(s) Document(s ) Leukocytes 9.8 Normal (applies WBC Count [facility] [#/volume] in {10^3_uL to non-numeric Health Unspecified } results) System specimen by Automated count Erythrocytes 3.98 Normal (applies RBC Count [facility] [#/volume] in {10^6_uL to non-numeric Health Blood by } results) System Automated count Hematocrit 37.5 % Normal (applies Hematocrit [facility] [Volume to non-numeric Health Fraction] of results) System Blood Hemoglobin 11.9 Below low normal Hemoglobin [facility] [Mass/volume] in {gm/dL} Health Blood System Erythrocyte mean 94.2 fl Normal (applies MCV [facility] corpuscular to non-numeric Health volume [Entitic results) System volume] by Automated count Erythrocyte mean 29.9 pg Normal (applies MCH [facility] corpuscular to non-numeric Health hemoglobin results) System [Entitic mass] by Automated count Erythrocyte mean 31.7 Below low normal MCHC [facility] corpuscular {gm/dL} Health hemoglobin System concentration [Mass/volume] by Automated count Erythrocyte 13.6 % Normal (applies RDW-CV [facility] distribution to non-numeric Health width [Entitic results) System volume] by Automated count Platelets 317 Normal (applies Platelet Count [facility] [#/volume] in {10^3_uL to non-numeric Health Plasma by } results) System Automated count Platelet mean 11.0 fl Above high MPV [facility] volume [Entitic normal Health volume] in Blood System by Automated count Eosinophils 0.00 Below low normal Eosinophil # [facility] [#/volume] in {10^3_uL Health Blood } System Monocytes 0.9 Normal (applies Monocyte # [facility] [#/volume] in {10^3_uL to non-numeric Health Blood by Manual } results) System count Neutrophils 5.4 Normal (applies Neutrophil # [facility] [#/volume] in {10^3_uL to non-numeric Health Body fluid } results) System Basophils 0.06 Normal (applies Basophil # [facility] [#/volume] in {10^3_uL to non-numeric Health Blood by } results) System Automated count Neutrophils/100 54.8 % Below low normal Neutrophil % [facility] leukocytes in Health Blood by System Automated count Lymphocyte 3.5 Normal (applies Lymphocyte # [facility] percent {10^3_uL to non-numeric Health differential } results) System count (procedure) Eosinophils/100 0.0 % Normal (applies Eosinophil % Jose Antonio bdu leukocytes in to non-numeric Health Unspecified results) System specimen Monocytes/100 9.0 % Normal (applies Monocyte % [facility] leukocytes in to non-numeric Health Blood results) System Basophils/100 0.6 % Normal (applies Basophil % [facility] leukocytes in to non-numeric Health Unspecified results) System specimen by Manual count Lymphocytes 35.4 % Normal (applies Lymphocyte % [facility] [#/volume] in to non-numeric Health Blood by results) System Automated count Nucleated 0.0 Normal (applies NRBC % [facility] erythrocytes {/100_WB to non-numeric Health [#/volume] in C} results) System Body fluid ImmatureGranuloc 0.2 % Normal (applies Immature [facility] ytes% to non-numeric Granulocytes % Health results) System NRBC# 0.00 Below low normal NRBC # [facility] {10^3_uL Health } System ImmatureGranuloc 0.02 Normal (applies Immature [facility] ytes# {10^3_uL to non-numeric Granulocytes # Health } results) System ID Date Data Source [id number] 02/27/2019 08:40:00 PM EDT [facility] System Name Value Range Interpretation Description Data Sup porting Code Source(s) Document(s ) Sodium 141 Normal (applies Sodium, Serum [facility] [Moles/volume] in mmol/L to non-numeric Health Serum or Plasma results) System Chloride 104 Normal (applies Chloride, [facility] [Moles/volume] in mmol/L to non-numeric Serum Health Serum or Plasma results) System Potassium 4.8 Normal (applies Potassium, [facility] [Mass/volume] in mmol/L to non-numeric Serum Health Serum or Plasma results) System Carbon dioxide, 27.0 Normal (applies CO2, Serum [facility] total mmol/L to non-numeric Health [Moles/volume] in results) System Serum or Plasma TotalProtein 7.2 Normal (applies Total Protein [facility] mg/dl to non-numeric Health results) System Urea nitrogen 23 Above high Blood Urea [facility] [Mass/volume] in mg/dl normal Nitrogen, Health Serum or Plasma Serum System Glucose 85 Normal (applies Glucose, [facility] [Mass/volume] in mg/dL to non-numeric Serum Health Serum or Plasma results) System Alkaline 85 Normal (applies Alkaline [facility] phosphatase {IU/L} to non-numeric Phosphatase, Health isoenzymes results) Serum System [Enzymatic activity/volume] in Serum or Plasma by Heat stability Creatinine 0.70 Normal (applies Creatinine, [facility] [Mass/volume] in mg/dl to non-numeric Serum Health Serum or Plasma results) System Bilirubin.total 0.2 Normal (applies Bilirubin, [facility] [Mass/volume] in mg/dl to non-numeric Serum Total Health Serum or Plasma results) System Aspartate 41 Above high Aspartate [facility] aminotransferase {IU/L} normal Transaminase, Health [Enzymatic Serum System activity/volume] in Serum or Plasma by With P-5'-P DirectBilirubin 0.1 Normal (applies Direct [facility] mg/dl to non-numeric Bilirubin Health results) System I.Phosphorus 3.3 Normal (applies I. Phosphorus [facility] mg/dl to non-numeric Health results) System Albumin 3.8 Below low normal Albumin, [facility] [Mass/volume] in {gm/dl} Serum Health Serum or Plasma System Alanine 45 Normal (applies Alanine [facility] aminotransferase {IU/L} to non-numeric Aminotransfer Heal th [Enzymatic results) ase, Serum System activity/volume] in Serum or Plasma A/GRatio 1.12 Normal (applies A/G Ratio [facility] to non-numeric Health results) System Calcium 9.1 Normal (applies Calcium, [facility] [Mass/volume] in mg/dl to non-numeric Total Serum Health Serum or Plasma results) System Anion gap in Serum 10.00 Normal (applies Anion Gap Jose Antonio bud or Plasma mmol/L to non-numeric Health results) System Urate 4.1 Normal (applies Uric Acid, [facility] [Mass/volume] in mg/dl to non-numeric Serum Health Serum or Plasma results) System Glomerular > 90 Normal (applies GFR [facility] filtration to non-numeric Health rate/1.73 sq results) System M.predicted [Volume Rate/Area] in Serum or Plasma by Creatinine-based formula (CKD-EPI) eGFR will provide clinicians with a more accurate indicator of renal function then the serum creatinine. The eGFR is automa tically calculated from an empiric formula (endorsed by the National [employer] ion) which incorporates age, sex, and race.Clinicians may notice surprisingly low GFR's with serum creatinine valueswithin normal range- particularly in elderly wo men (with low muscle mass).In the hospital setting, the eGFR should add an element of safety in drug dosing, in assessing the risk of IV contrast administration, and in assessing vascular risk.The NKF staging system is as follows:Normal: eGFR >90 with no kidney markersStage 1: eGFR >90 with kidney markers*Stage 2: eGFR 60- 89Stage 3: eGFR 30-59Stage 4: eGFR 15-29Stage 5: eGFR <15 (usually requir ing dialysis)*Markers include: Proteinuria, Hematuria, abnormal imaging-studies, or other blood or urine test abnormalities ID Date Data Source [id number] 02/27/2019 11:45:00 PM EDT Janie crisostomo System Name Value Range Interpretation Description Data Sup porting Code Source(s) Document(s ) Bacteria Micro Result Normal (applies Culture, Wound [facility] identified in to non-numeric Health Wound by results) System Culture XXX Staphylococcus Organism [facility] microorganism Aureus Health serotype System [Identifier] in Isolate by Agglutination ColonyCount MODERATE MRSA [place] Count Janie ISOLATED. [facility] Vancomycin BEKAH System for this isolate is 1.5 ug/mL. Clinical failures have been documented with this type of heteroresistan t isolate having BEKAH: >1 ug/mL but <4 ug/mL. NOTIFIED DR. WARD AT 2:46 PM 03/03/2019. Ciprofloxacin <=1 Sensitive - [facility] [Susceptibili Ciprofloxacin Health ty] System Clindamycin <=0.5 - Clindamycin [facility] [Susceptibili Sensitive Health ty] System Erythromycin >4 Resistant - [facility] [Susceptibili Erythromycin Health ty] System Gentamicin <=4 Sensitive - Gentamicin [facility] [Susceptibili Health ty] System Oxacillin >2 Resistant - Oxacillin [facility] [Mass/volume] Health in System Unspecified specimen Penicillin >8 Resistant - Penicillin [facility] [Susceptibili Health ty] System Rifampin <=1 Sensitive - Rifampin [facility] [Mass/volume] Health in Serum or System Plasma Tetracycline <=4 Sensitive - [facility] [Susceptibili Tetracycline Health ty] System Trimethoprim+ <=0.5/9.5 - [facility] Sulfamethoxaz Sensitive Trimethoprim/S Health ole ulfamethoxazol System [Susceptibili e ty] Vancomycin 1 Sensitive - Vancomycin [facility] [Susceptibili Health ty] System ID Date Data Source [id number] 02/28/2019 06:51:00 AM EDT [facility] System Name Value Range Interpretation Description Data Sup porting Code Source(s) Document(s ) Leukocytes 10.4 Normal (applies WBC Count [facility] [#/volume] in {10^3_uL to non-numeric Health Unspecified } results) System specimen by Automated count Hemoglobin 11.8 Below low normal Hemoglobin [facility] [Mass/volume] in {gm/dL} Health Blood System Erythrocytes 3.88 Normal (applies RBC Count [facility] [#/volume] in {10^6_uL to non-numeric Health Blood by } results) System Automated count Hematocrit 37.9 % Normal (applies Hematocrit [facility] [Volume to non-numeric Health Fraction] of results) System Blood Erythrocyte mean 97.7 fl Normal (applies MCV [facility] corpuscular to non-numeric Health volume [Entitic results) System volume] by Automated count Erythrocyte mean 30.4 pg Normal (applies MCH [facility] corpuscular to non-numeric Health hemoglobin results) System [Entitic mass] by Automated count Erythrocyte 13.6 % Normal (applies RDW-CV [facility] distribution to non-numeric Health width [Entitic results) System volume] by Automated count Erythrocyte mean 31.1 Below low normal MCHC [facility] corpuscular {gm/dL} Health hemoglobin System concentration [Mass/volume] by Automated count Platelet mean 10.5 fl Above high MPV [facility] volume [Entitic normal Health volume] in Blood System by Automated count Platelets 275 Normal (applies Platelet Count [facility] [#/volume] in {10^3_uL to non-numeric Health Plasma by } results) System Automated count Monocytes 0.9 Above high Monocyte # [facility] [#/volume] in {10^3_uL normal Health Blood by Manual } System count Eosinophils 0.00 Below low normal Eosinophil # [facility] [#/volume] in {10^3_uL Health Blood } System Neutrophils 5.4 Normal (applies Neutrophil # [facility] [#/volume] in {10^3_uL to non-numeric Health Body fluid } results) System Basophils 0.08 Normal (applies Basophil # [facility] [#/volume] in {10^3_uL to non-numeric Health Blood by } results) System Automated count Lymphocyte 4.0 Normal (applies Lymphocyte # [facility] percent {10^3_uL to non-numeric Health differential } results) System count (procedure) Monocytes/100 9.0 % Normal (applies Monocyte % [facility] leukocytes in to non-numeric Health Blood results) System Neutrophils/100 51.5 % Below low normal Neutrophil % [facility] leukocytes in Health Blood by System Automated count Basophils/100 0.8 % Normal (applies Basophil % [facility] leukocytes in to non-numeric Health Unspecified results) System specimen by Manual count Eosinophils/100 0.0 % Normal (applies Eosinophil % [facility] Antonio bud leukocytes in to non-numeric Health Unspecified results) System specimen Lymphocytes 38.4 % Normal (applies Lymphocyte % [facility] [#/volume] in to non-numeric Health Blood by results) System Automated count ImmatureGranuloc 0.3 % Normal (applies Immature [facility] ytes% to non-numeric Granulocytes % Health results) System Nucleated 0.0 Normal (applies NRBC % [facility] erythrocytes {/100_WB to non-numeric Health [#/volume] in C} results) System Body fluid ImmatureGranuloc 0.03 Normal (applies Immature [facility] ytes# {10^3_uL to non-numeric Granulocytes # Health } results) System NRBC# 0.00 Below low normal NRBC # [facility] {10^3_uL Health } System ID Date Data Source [id number] 02/28/2019 06:51:00 AM [place] [facility] System Name Value Range Interpretation Description Data Sup porting Code Source(s) Document(s ) Sodium 139 Normal (applies Sodium, Serum [facility] [Moles/volume] in mmol/L to non-numeric Health Serum or Plasma results) System Potassium 4.7 Normal (applies Potassium, [facility] [Mass/volume] in mmol/L to non-numeric Serum Health Serum or Plasma results) System Chloride 104 Normal (applies Chloride, [facility] [Moles/volume] in mmol/L to non-numeric Serum Health Serum or Plasma results) System TotalProtein 5.8 Below low normal Total Protein [facility] mg/dl [facility] System Carbon dioxide, 25.0 Normal (applies CO2, Serum [facility] total mmol/L to non-numeric Health [Moles/volume] in results) System Serum or Plasma Urea nitrogen 23 Above high Blood Urea [facility] [Mass/volume] in mg/dl normal Nitrogen, Health Serum or Plasma Serum System Glucose 75 Normal (applies Glucose, [facility] [Mass/volume] in mg/dL to non-numeric Serum Health Serum or Plasma results) System Creatinine 0.70 Normal (applies Creatinine, [facility] [Mass/volume] in mg/dl to non-numeric Serum Health Serum or Plasma results) System Alkaline 70 Normal (applies Alkaline [facility] phosphatase {IU/L} to non-numeric Phosphatase, Health isoenzymes results) Serum System [Enzymatic activity/volume] in Serum or Plasma by Heat stability Bilirubin.total 0.3 Normal (applies Bilirubin, [facility] [Mass/volume] in mg/dl to non-numeric Serum Total Health Serum or Plasma results) System DirectBilirubin 0.1 Normal (applies Direct [facility] mg/dl to non-numeric Bilirubin Health results) System Aspartate 31 Normal (applies Aspartate [facility] aminotransferase {IU/L} to non-numeric Transaminase, Heal th [Enzymatic results) Serum System activity/volume] in Serum or Plasma by With P-5'-P Albumin 3.1 Below low normal Albumin, [facility] [Mass/volume] in {gm/dl} Serum Health Serum or Plasma System I.Phosphorus 3.3 Normal (applies I. Phosphorus [facility] mg/dl to non-numeric Health results) System Alanine 38 Normal (applies Alanine [facility] aminotransferase {IU/L} to non-numeric Aminotransfer Heal th [Enzymatic results) ase, Serum System activity/volume] in Serum or Plasma Calcium 8.3 Below low normal Calcium, [facility] [Mass/volume] in mg/dl Total Serum Health Serum or Plasma System A/GRatio 1.15 Normal (applies A/G Ratio [facility] to non-numeric Health results) System Urate 3.7 Normal (applies Uric Acid, [facility] [Mass/volume] in mg/dl to non-numeric Serum Health Serum or Plasma results) System Anion gap in Serum 10.00 Normal (applies Anion Gap [facility] Antonio bud or Plasma mmol/L to non-numeric Health results) System Glomerular > 90 Normal (applies GFR [facility] filtration to non-numeric Health rate/1.73 sq results) System M.predicted [Volume Rate/Area] in Serum or Plasma by Creatinine-based formula (CKD-EPI) eGFR will provide clinicians with a more accurate indicator of renal function then the serum creatinine. The eGFR is automa tically calculated from an empiric formula (endorsed by the [employer] ion) which incorporates age, sex, and race.Clinicians may notice surprisingly low GFR's with serum creatinine valueswithin normal range- particularly in elderly wo men (with low muscle mass).In the hospital setting, the eGFR should add an element of safety in drug dosing, in assessing the risk of IV contrast administration, and in assessing vascular risk.The NKF staging system is as follows:Normal: eGFR >90 with no kidney markersStage 1: eGFR >90 with kidney markers*Stage 2: eGFR 60- 89Stage 3: eGFR 30-59Stage 4: eGFR 15-29Stage 5: eGFR <15 (usually requir ing dialysis)*Markers include: Proteinuria, Hematuria, abnormal imaging-studies, or other blood or urine test abnormalities ID Date Data Source [id number] 03/01/2019 07:05:00 AM EDDileep [facility] System Name Value Range Interpretation Description Data Sup porting Code Source(s) Document(s ) Leukocytes 9.4 Normal (applies WBC Count [facility] [#/volume] in {10^3_uL to non-numeric Health Unspecified } results) System specimen by Automated count Erythrocytes 3.90 Normal (applies RBC Count [facility] [#/volume] in {10^6_uL to non-numeric Health Blood by } results) System Automated count Hemoglobin 11.7 Below low normal Hemoglobin [facility] [Mass/volume] in {gm/dL} Health Blood System Hematocrit 37.8 % Normal (applies Hematocrit [facility] [Volume to non-numeric Health Fraction] of results) System Blood Erythrocyte mean 96.9 fl Normal (applies MCV [facility] corpuscular to non-numeric Health volume [Entitic results) System volume] by Automated count Erythrocyte mean 30.0 pg Normal (applies MCH [facility] corpuscular to non-numeric Health hemoglobin results) System [Entitic mass] by Automated count Erythrocyte 13.8 % Normal (applies RDW-CV [facility] distribution to non-numeric Health width [Entitic results) System volume] by Automated count Erythrocyte mean 31.0 Below low normal MCHC [facility] corpuscular {gm/dL} Health hemoglobin System concentration [Mass/volume] by Automated count Platelets 281 Normal (applies Platelet Count [facility] [#/volume] in {10^3_uL to non-numeric Health Plasma by } results) System Automated count Monocytes 0.8 Normal (applies Monocyte # [facility] [#/volume] in {10^3_uL to non-numeric Health Blood by Manual } results) System count Platelet mean 11.0 fl Above high MPV [facility] volume [Entitic normal Health volume] in Blood System by Automated count Eosinophils 0.00 Below low normal Eosinophil # [facility] [#/volume] in {10^3_uL Health Blood } System Basophils 0.06 Normal (applies Basophil # [facility] [#/volume] in {10^3_uL to non-numeric Health Blood by } results) System Automated count Neutrophils 5.3 Normal (applies Neutrophil # [facility] [#/volume] in {10^3_uL to non-numeric Health Body fluid } results) System Neutrophils/100 55.8 % Normal (applies Neutrophil % [facility] Antonio bud leukocytes in to non-numeric Health Blood by results) System Automated count Lymphocyte 3.3 Normal (applies Lymphocyte # [facility] percent {10^3_uL to non-numeric Health differential } results) System count (procedure) Monocytes/100 8.2 % Normal (applies Monocyte % [facility] leukocytes in to non-numeric Health Blood results) System Eosinophils/100 0.0 % Normal (applies Eosinophil % [facility] bud leukocytes in to non-numeric Health Unspecified results) System specimen Basophils/100 0.6 % Normal (applies Basophil % [facility] leukocytes in to non-numeric Health Unspecified results) System specimen by Manual count Lymphocytes 35.2 % Normal (applies Lymphocyte % [facility] [#/volume] in to non-numeric Health Blood by results) System Automated count ImmatureGranuloc 0.2 % Normal (applies Immature [facility] ytes% to non-numeric Granulocytes % Health results) System Nucleated 0.0 Normal (applies NRBC % [facility] erythrocytes {/100_WB to non-numeric Health [#/volume] in C} results) System Body fluid ImmatureGranuloc 0.02 Normal (applies Immature [facility] ytes# {10^3_uL to non-numeric Granulocytes # Health } results) System NRBC# 0.00 Below low normal NRBC # [facility] {10^3_uL Health } System ID Date Data Source [id number] 03/01/2019 07:05:00 AM EDT [facility] System Name Value Range Interpretation Description Data Sup porting Code Source(s) Document(s ) Sodium 138 Normal (applies Sodium, Serum [facility] [Moles/volume] in mmol/L to non-numeric Health Serum or Plasma results) System Potassium 4.4 Normal (applies Potassium, [facility] [Mass/volume] in mmol/L to non-numeric Serum Health Serum or Plasma results) System Chloride 104 Normal (applies Chloride, [facility] [Moles/volume] in mmol/L to non-numeric Serum Health Serum or Plasma results) System TotalProtein 6.0 Below low normal Total Protein [facility] mg/dl [facility] System Carbon dioxide, 28.0 Normal (applies CO2, Serum [facility] total mmol/L to non-numeric Health [Moles/volume] in results) System Serum or Plasma Glucose 79 Normal (applies Glucose, [facility] [Mass/volume] in mg/dL to non-numeric Serum Health Serum or Plasma results) System Creatinine 0.80 Normal (applies Creatinine, [facility] [Mass/volume] in mg/dl to non-numeric Serum Health Serum or Plasma results) System Urea nitrogen 22 Above high Blood Urea [facility] [Mass/volume] in mg/dl normal Nitrogen, Health Serum or Plasma Serum System Alkaline 73 Normal (applies Alkaline [facility] phosphatase {IU/L} to non-numeric Phosphatase, Health isoenzymes results) Serum System [Enzymatic activity/volume] in Serum or Plasma by Heat stability Bilirubin.total 0.2 Normal (applies Bilirubin, [facility] [Mass/volume] in mg/dl to non-numeric Serum Total Health Serum or Plasma results) System DirectBilirubin 0.1 Normal (applies Direct [facility] mg/dl to non-numeric Bilirubin Health results) System Aspartate 27 Normal (applies Aspartate [facility] aminotransferase {IU/L} to non-numeric Transaminase, Heal th [Enzymatic results) Serum System activity/volume] in Serum or Plasma by With P-5'-P I.Phosphorus 3.8 Normal (applies I. Phosphorus [facility] mg/dl to non-numeric Health results) System Albumin 3.4 Below low normal Albumin, [facility] [Mass/volume] in {gm/dl} Serum Health Serum or Plasma System Alanine 35 Normal (applies Alanine [facility] aminotransferase {IU/L} to non-numeric Aminotransfer Heal th [Enzymatic results) ase, Serum System activity/volume] in Serum or Plasma A/GRatio 1.31 Normal (applies A/G Ratio [facility] to non-numeric Health results) System Calcium 8.4 Normal (applies Calcium, [facility] [Mass/volume] in mg/dl to non-numeric Total Serum Health Serum or Plasma results) System Urate 3.0 Normal (applies Uric Acid, [facility] [Mass/volume] in mg/dl to non-numeric Serum Health Serum or Plasma results) System Anion gap in Serum 6.00 Below low normal Anion Gap [facility] or Plasma mmol/L Health System Glomerular 77.51 Normal (applies GFR [facility] filtration to non-numeric Health rate/1.73 sq results) System M.predicted [Volume Rate/Area] in Serum or Plasma by Creatinine-based formula (CKD-EPI) eGFR will provide clinicians with a more accurate indicator of renal function then the serum creatinine. The eGFR is automa tically calculated from an empiric formula (endorsed by the [employer] ion) which incorporates age, sex, and race.Clinicians may notice surprisingly low GFR's with serum creatinine valueswithin normal range- particularly in elderly wo men (with low muscle mass).In the hospital setting, the eGFR should add an element of safety in drug dosing, in assessing the risk of IV contrast administration, and in assessing vascular risk.The NKF staging system is as follows:Normal: eGFR >90 with no kidney markersStage 1: eGFR >90 with kidney markers*Stage 2: eGFR 60- 89Stage 3: eGFR 30-59Stage 4: eGFR 15-29Stage 5: eGFR <15 (usually requir ing dialysis)*Markers include: Proteinuria, Hematuria, abnormal imaging-studies, or other blood or urine test abnormalities ID Date Data Source [id number] 03/01/2019 07:05:00 AM EDT Janie Cervantes [facility] System Name Value Range Interpretation Description Data Sup porting Code Source(s) Document(s ) Vancomycin 13.7 Normal (applies Vancomycin [facility] [Mass/volume] ug/ml to non-numeric Level, [facility] in Serum or results) Plasma --[facility] Reference Fxmwdg35-31 ug/mL - Therapeuti c oujmigmckkmel99-00 ug/mL - Complicated Infections ID Date Data Source [id number] 03/02/2019 07:17:00 AM EDT Janie Cervantes [facility] System Name Value Range Interpretation Description Data Sup porting Code Source(s) Document(s ) Vancomycin 11.8 Normal (applies Vancomycin [facility] [Mass/volume] ug/ml to non-numeric Level, [facility] in Serum or results) Plasma --[facility] Reference Wfxkkh54-32 ug/mL - Therapeuti c gnielezjjmquk53-93 ug/mL - Complicated Infections ID Date Data Source [id number] 03/02/2019 05:00:00 PM EDT Janie [facility] System Name Value Range Interpretation Description Data Sup porting Code Source(s) Document(s ) TissueExam Results for case # Normal (applies Tissue Exam [facility] [id number] to non-numeric Health SURGICAL PATHOLOGY results) System REPORTCLINICAL INFORMATION: Abscess, right leg.PREOPERATIVE DIAGNOSIS: Same.POSTOPERATIVE DIAGNOSIS: Same.FINAL DIAGNOSIS: Skin and soft tissue, right leg, debridement:Gangre nous tissue with severe acute inflammation and abscess formation.GO/cmGIU KHLOE HANLEY MDElectronically Signed By: GROSS DESCRIPTION: In formalin, labeled "abscess, right leg", the specimen consists of a 2.5 x 1.7 x 0.6 cm, regalado-brown, necrotic portion of tissue, which is sectioned and submitted representatively in one cassette.MV/cmPage 1 of 1Testing performed at [facility], [address] [place] [id number]. ID Date Data Source [id number] 03/02/2019 05:12:00 PM EDT [facility] c[facility]s [facility] right leg Name Value Range Interpretation Description Data Sup porting Code Source(s) Document(s ) Bacteria Micro Result Normal (applies Culture, [facility] identified in to non-numeric Wound Health Wound by results) System Culture XXX Staphylococcus Organism [facility] microorganism [facility] serotype System [Identifier] in Isolate by Agglutination [place] Count MANY FOR [place] Count [facility] SENSITIVITY Health REFER TO System #[id number] Bacteria Micro Result Normal (applies Culture, [facility] identified in to non-numeric Wound Health Wound by results) System Culture ColonyCount MANY FOR [place] Count [facility] SENSITIVITY Health REFER TO System #[id number] XXX Staphylococcus Organism [facility] microorganism [facility] serotype System [Identifier] in Isolate by Agglutination ID Date Data Source [id number] 03/03/2019 06:20:00 AM EDT [facility] Name Value Range Interpretation Description Data Sup porting Code Source(s) Document(s ) Vancomycin 13.5 Normal (applies Vancomycin [facility] [Mass/volume] ug/ml to non-numeric Level, [facility] in Serum or results) Plasma --[facility] Reference Wsfbvk35-89 ug/mL - Therapeuti c diltqztlvhkrq60-19 ug/mL - Complicated Infections ID Date Data Source [id number] 03/03/2019 06:20:00 AM EDT [facility] Name Value Range Interpretation Description Data Sup porting Code Source(s) Document(s ) Leukocytes 8.7 Normal (applies WBC Count [facility] [#/volume] in {10^3_uL to non-numeric Health Unspecified } results) System specimen by Automated count Erythrocytes 3.39 Below low normal RBC Count [facility] [#/volume] in {10^6_uL Health Blood by } System Automated count Hemoglobin 10.3 Below low normal Hemoglobin [facility] [Mass/volume] in {gm/dL} Health Blood System Hematocrit 32.0 % Below low normal Hematocrit [facility] [Volume Health Fraction] of System Blood Erythrocyte mean 94.4 fl Normal (applies MCV [facility] corpuscular to non-numeric Health volume [Entitic results) System volume] by Automated count Erythrocyte mean 30.4 pg Normal (applies MCH [facility] corpuscular to non-numeric Health hemoglobin results) System [Entitic mass] by Automated count Erythrocyte 13.6 % Normal (applies RDW-CV [facility] distribution to non-numeric Health width [Entitic results) System volume] by Automated count Erythrocyte mean 32.2 Below low normal MCHC [facility] corpuscular {gm/dL} Health hemoglobin System concentration [Mass/volume] by Automated count Platelets 252 Normal (applies Platelet Count [facility] [#/volume] in {10^3_uL to non-numeric Health Plasma by } results) System Automated count Platelet mean 10.9 fl Above high MPV [facility] volume [Entitic normal Health volume] in Blood System by Automated count Monocytes 0.6 Normal (applies Monocyte # [facility] [#/volume] in {10^3_uL to non-numeric Health Blood by Manual } results) System count Eosinophils 0.01 Below low normal Eosinophil # [facility] [#/volume] in {10^3_uL Health Blood } System Neutrophils 5.0 Normal (applies Neutrophil # [facility] [#/volume] in {10^3_uL to non-numeric Health Body fluid } results) System Basophils 0.06 Normal (applies Basophil # [facility] [#/volume] in {10^3_uL to non-numeric Health Blood by } results) System Automated count Neutrophils/100 57.4 % Normal (applies Neutrophil % Jose Antonio bud leukocytes in to non-numeric Health Blood by results) System Automated count Lymphocyte 3.0 Normal (applies Lymphocyte # [facility] percent {10^3_uL to non-numeric Health differential } results) System count (procedure) Monocytes/100 6.6 % Normal (applies Monocyte % [facility] leukocytes in to non-numeric Health Blood results) System Eosinophils/100 0.1 % Normal (applies Eosinophil % [facility] Antonio bud leukocytes in to non-numeric Health Unspecified results) System specimen Basophils/100 0.7 % Normal (applies Basophil % [facility] leukocytes in to non-numeric Health Unspecified results) System specimen by Manual count Lymphocytes 35.0 % Normal (applies Lymphocyte % [facility] [#/volume] in to non-numeric Health Blood by results) System Automated count ImmatureGranuloc 0.2 % Normal (applies Immature [facility] ytes% to non-numeric Granulocytes % Health results) System Nucleated 0.0 Normal (applies NRBC % [facility] erythrocytes {/100_WB to non-numeric Health [#/volume] in C} results) System Body fluid ImmatureGranuloc 0.02 Normal (applies Immature [facility] ytes# {10^3_uL to non-numeric Granulocytes # Health } results) System NRBC# 0.00 Below low normal NRBC # [facility] {10^3_uL Health } System ID Date Data Source [id number] 03/03/2019 06:20:00 AM EDT [facility] System Name Value Range Interpretation Description Data Sup porting Code Source(s) Document(s ) Sodium 138 Normal (applies Sodium, Serum [facility] [Moles/volume] in mmol/L to non-numeric Health Serum or Plasma results) System Potassium 4.2 Normal (applies Potassium, [facility] [Mass/volume] in mmol/L to non-numeric Serum Health Serum or Plasma results) System Chloride 106 Normal (applies Chloride, [facility] [Moles/volume] in mmol/L to non-numeric Serum Health Serum or Plasma results) System Carbon dioxide, 24.0 Normal (applies CO2, Serum [facility] total mmol/L to non-numeric Health [Moles/volume] in results) System Serum or Plasma TotalProtein 5.9 Below low normal Total Protein [facility] mg/dl Health System Glucose 106 Above high Glucose, [facility] [Mass/volume] in mg/dL normal Serum Health Serum or Plasma System Urea nitrogen 22 Above high Blood Urea [facility] [Mass/volume] in mg/dl normal Nitrogen, Health Serum or Plasma Serum System Creatinine 0.80 Normal (applies Creatinine, [facility] [Mass/volume] in mg/dl to non-numeric Serum Health Serum or Plasma results) System Alkaline 73 Normal (applies Alkaline [facility] phosphatase {IU/L} to non-numeric Phosphatase, Health isoenzymes results) Serum System [Enzymatic activity/volume] in Serum or Plasma by Heat stability Bilirubin.total 0.2 Normal (applies Bilirubin, [facility] [Mass/volume] in mg/dl to non-numeric Serum Total Health Serum or Plasma results) System Aspartate 24 Normal (applies Aspartate [facility] aminotransferase {IU/L} to non-numeric Transaminase, Heal th [Enzymatic results) Serum System activity/volume] in Serum or Plasma by With P-5'-P DirectBilirubin 0.1 Normal (applies Direct [facility] mg/dl to non-numeric Bilirubin Health results) System Albumin 3.4 Below low normal Albumin, [facility] [Mass/volume] in {gm/dl} Serum Health Serum or Plasma System I.Phosphorus 3.6 Normal (applies I. Phosphorus [facility] mg/dl to non-numeric Health results) System Calcium 8.6 Normal (applies Calcium, [facility] [Mass/volume] in mg/dl to non-numeric Total Serum Health Serum or Plasma results) System Alanine 32 Normal (applies Alanine [facility] aminotransferase {IU/L} to non-numeric Aminotransfer Heal th [Enzymatic results) ase, Serum System activity/volume] in Serum or Plasma A/GRatio 1.36 Normal (applies A/G Ratio [facility] to non-numeric Health results) System Urate 3.2 Normal (applies Uric Acid, [facility] [Mass/volume] in mg/dl to non-numeric Serum Health Serum or Plasma results) System Glomerular 77.51 Normal (applies GFR [facility] filtration to non-numeric Health rate/1.73 sq results) System M.predicted [Volume Rate/Area] in Serum or Plasma by Creatinine-based formula (CKD-EPI) eGFR will provide clinicians with a more accurate indicator of renal function then the serum creatinine. The eGFR is automa tically calculated from an empiric formula (endorsed by the National Kidney [employer] ion) which incorporates age, sex, and race.Clinicians may notice surprisingly low GFR's with serum creatinine valueswithin normal range- particularly in elderly wo men (with low muscle mass).In the hospital setting, the eGFR should add an element of safety in drug dosing, in assessing the risk of IV contrast administration, and in assessing vascular risk.The NKF staging system is as follows:Normal: eGFR >90 with no kidney markersStage 1: eGFR >90 with kidney markers*Stage 2: eGFR 60- 89Stage 3: eGFR 30-59Stage 4: eGFR 15-29Stage 5: eGFR <15 (usually requir ing dialysis)*Markers include: Proteinuria, Hematuria, abnormal imaging-studies, or other blood or urine test abnormalities Anion gap in 8.00 mmol/L Normal (applies to Anion Gap [facility] Health Serum or Plasma non-numeric results) Sys tem ID Date Data Source [id number] 05/08/2020 02:01:01 AM EDT [facility] System Name Value Range Interpretation Description Data Sup porting Code Source(s) Document(s ) Bacteria NO GROWTH Culture [facility] identified in Bacteria Blood Health Syst em Blood by [facility] culture ID Date Data Source [id number] 05/08/2020 02:01:01 AM EDT [facility] System Name Value Range Interpretation Description Data Sup porting Code Source(s) Document(s ) Bacteria NO GROWTH Culture [facility] identified in Bacteria Blood Health Syst em Blood by [facility] culture ID Date Data Source [id number] 05/08/2020 02:01:01 AM EDT [facility] System Name Value Range Interpretation Description Data Sup porting Code Source(s) Document(s ) Polys 64 % Normal (applies Polys [facility] to non-numeric Health results) System Basophil%. 1 % Normal (applies Basophil %. [facility] to non-numeric Health results) System Bands 2 % Normal (applies Bands [facility] to non-numeric Health results) System Lymphocyte%. 21 % Normal (applies Lymphocyte %. [facility] to non-numeric [facility] results) System Variant 2 % Normal (applies Atypical [facility] lymphocytes to non-numeric Lymphocyte Health [Presence] in results) Count System Blood by Automated count Platelets Adequate Normal (applies Platelet Count [facility] [#/volume] in to non-numeric Estimate Health Blood by results) System Estimate Monocyte%. 4 % Below low normal Monocyte %. [facility] Eosinophils%. 6 % Above high normal Eosinophils %. [facility] NORM Yes Normal (applies NORM [facility] to non-numeric Health results) System ID Date Data Source [id number] 05/08/2020 02:01:01 AM EDT [facility] Name Value Range Interpretation Description Data Sup porting Code Source(s) Document(s ) Erythrocytes 3.73 Below low normal RBC Count [facility] [#/volume] in {10^6_uL Health Blood by } System Automated count Leukocytes 12.2 Above high WBC Count [facility] [#/volume] in {10^3_uL normal Health Unspecified } System specimen by Automated count Hemoglobin 11.4 Below low normal Hemoglobin [facility] [Mass/volume] in {gm/dL} Health Blood System Hematocrit 33.8 % Below low normal Hematocrit [facility] [Volume Health Fraction] of System Blood Erythrocyte mean 90.6 fl Normal (applies MCV [facility] corpuscular to non-numeric Health volume [Entitic results) System volume] by Automated count Erythrocyte mean 30.6 pg Normal (applies MCH [facility] corpuscular to non-numeric Health hemoglobin results) System [Entitic mass] by Automated count Erythrocyte 12.8 % Normal (applies RDW-CV [facility] distribution to non-numeric Health width [Entitic results) System volume] by Automated count Erythrocyte mean 33.7 Normal (applies MCHC [facility] corpuscular {gm/dL} to non-numeric Health hemoglobin results) System concentration [Mass/volume] by Automated count Platelets 298 Normal (applies Platelet Count [facility] [#/volume] in {10^3_uL to non-numeric Health Plasma by } results) System Automated count Platelet mean 10.1 fl Normal (applies MPV [facility] volume [Entitic to non-numeric Health volume] in Blood results) System by Automated count Monocytes 1.0 Above high Monocyte # [facility] [#/volume] in {10^3_uL normal Health Blood by Manual } System count Eosinophils 0.19 Normal (applies Eosinophil # [facility] [#/volume] in {10^3_uL to non-numeric Health Blood } results) System Neutrophils 7.7 Normal (applies Neutrophil # [facility] [#/volume] in {10^3_uL to non-numeric Health Body fluid } results) System Basophils 0.06 Normal (applies Basophil # [facility] [#/volume] in {10^3_uL to non-numeric Health Blood by } results) System Automated count Lymphocyte 3.3 Normal (applies Lymphocyte # [facility] percent {10^3_uL to non-numeric Health differential } results) System count (procedure) Neutrophils/100 62.6 % Normal (applies Neutrophil % [facility] leukocytes in to non-numeric Health Blood by results) System Automated count Monocytes/100 8.3 % Normal (applies Monocyte % [facility] leukocytes in to non-numeric Health Blood results) System Eosinophils/100 1.6 % Normal (applies Eosinophil % [facility] leukocytes in to non-numeric Health Unspecified results) System specimen Lymphocytes 26.8 % Normal (applies Lymphocyte % [facility] [#/volume] in to non-numeric Health Blood by results) System Automated count Basophils/100 0.5 % Normal (applies Basophil % [facility] leukocytes in to non-numeric Health Unspecified results) System specimen by Manual count ImmatureGranuloc 0.2 % Normal (applies Immature [facility] ytes% to non-numeric Granulocytes % Health results) System Nucleated 0.0 Normal (applies NRBC % [facility] erythrocytes {/100_WB to non-numeric Health [#/volume] in C} results) System Body fluid ImmatureGranuloc 0.02 Normal (applies Immature [facility] ytes# {10^3_uL to non-numeric Granulocytes # Health } results) System NRBC# 0.00 Below low normal NRBC # [facility] {10^3_uL Health } System ID Date Data Source [id number] 05/08/2020 02:01:01 AM EDT [facility] Name Value Range Interpretation Description Data Sup porting Code Source(s) Document(s ) Sodium 138 Normal (applies Sodium, Serum [facility] [Moles/volume] in mmol/L to non-numeric Health Serum or Plasma results) System Potassium 4.1 Normal (applies Potassium, [facility] [Mass/volume] in mmol/L to non-numeric Serum Health Serum or Plasma results) System Chloride 102 Normal (applies Chloride, [facility] [Moles/volume] in mmol/L to non-numeric Serum Health Serum or Plasma results) System Carbon dioxide, 26.0 Normal (applies CO2, Serum [facility] total mmol/L to non-numeric Health [Moles/volume] in results) System Serum or Plasma TotalProtein 6.8 Normal (applies Total Protein [facility] mg/dl to non-numeric Health results) System Urea nitrogen 17 Normal (applies Blood Urea [facility] [Mass/volume] in mg/dl to non-numeric Nitrogen, Health Serum or Plasma results) Serum System Glucose 85 Normal (applies Glucose, [facility] [Mass/volume] in mg/dL to non-numeric Serum Health Serum or Plasma results) System Creatinine 0.60 Below low normal Creatinine, [facility] [Mass/volume] in mg/dl Serum Health Serum or Plasma System Alkaline 85 Normal (applies Alkaline [facility] phosphatase {IU/L} to non-numeric Phosphatase, Health isoenzymes results) Serum System [Enzymatic activity/volume] in Serum or Plasma by Heat stability Bilirubin.total 0.2 Normal (applies Bilirubin, [facility] [Mass/volume] in mg/dl to non-numeric Serum Total Health Serum or Plasma results) System DirectBilirubin 0.1 Normal (applies Direct [facility] mg/dl to non-numeric Bilirubin Health results) System Aspartate 17 Normal (applies Aspartate [facility] aminotransferase {IU/L} to non-numeric Transaminase, Heal th [Enzymatic results) Serum System activity/volume] in Serum or Plasma by With P-5'-P Albumin 3.9 Normal (applies Albumin, [facility] [Mass/volume] in {gm/dl} to non-numeric Serum Health Serum or Plasma results) System I.Phosphorus 4.1 Normal (applies I. Phosphorus [facility] mg/dl to non-numeric Health results) System Alanine 18 Normal (applies Alanine [facility] aminotransferase {IU/L} to non-numeric Aminotransfer Heal th [Enzymatic results) ase, Serum System activity/volume] in Serum or Plasma Calcium 8.8 Normal (applies Calcium, [facility] [Mass/volume] in mg/dl to non-numeric Total Serum Health Serum or Plasma results) System A/GRatio 1.34 Normal (applies A/G Ratio [facility] to non-numeric Health results) System Urate 3.5 Normal (applies Uric Acid, [facility] [Mass/volume] in mg/dl to non-numeric Serum Health Serum or Plasma results) System Glomerular > 90 Normal (applies GFR [facility] filtration to non-numeric Health rate/1.73 sq results) System M.predicted [Volume Rate/Area] in Serum or Plasma by Creatinine-based formula (CKD-EPI) eGFR will provide clinicians with a more accurate indicator of renal function then the serum creatinine. The eGFR is automa tically calculated from an empiric formula (endorsed by the National Kidney [employer] ion) which incorporates age, sex, and race.Clinicians may notice surprisingly low GFR's with serum creatinine valueswithin normal range- particularly in elderly wo men (with low muscle mass).In the hospital setting, the eGFR should add an element of safety in drug dosing, in assessing the risk of IV contrast administration, and in assessing vascular risk.The NKF staging system is as follows:Normal: eGFR >90 with no kidney markersStage 1: eGFR >90 with kidney markers*Stage 2: eGFR 60- 89Stage 3: eGFR 30-59Stage 4: eGFR 15-29Stage 5: eGFR <15 (usually requir ing dialysis)*Markers include: Proteinuria, Hematuria, abnormal imaging-studies, or other blood or urine test abnormalities Anion gap in 10.00 mmol/L Normal (applies to Anion Gap [facility] Serum or Plasma non-numeric results) Sys tem ID Date Data Source [id number] 05/08/2020 02:01:01 AM EDT [facility] Name Value Range Interpretation Description Data Source(s ) Supporting Code Document(s ) PH* 7.441 Above high normal PH* [facility] {pH_units Health System } PCO2* 43.5 Normal (applies to PCO2* [facility] {mm_Hg} non-numeric Health System results) BaseExce 5.40 Above high normal Base Excess* [facility] e ss* {mEq/L} Health System HCO3* 29.6 Above high normal HCO3* [facility] Chloride 102 Normal (applies [facility], [facility] mmol/L non-numeric [facility] System results) Lactate. 0.7 Normal (applies to Lactate. [facility] mmol/L non-numeric Health System results) Glucose, 90 mg/dL Normal (applies to Glucose, [facility] non-numeric [facility] results) Potassiu 4.0 Normal (applies to Potassium, [facility] mmol/L non-numeric Health System results) Sodium,V 139 Normal (applies to Sodium, [facility] mmol/L non-numeric Health System results) IonizedC 1.18 Normal (applies to Ionized [facility] alcium,V mmol/L non-numeric Calcium, Health System B results) [id number] 98.50 % Normal (applies to O2 Saturation* [facility] iore tion* non-numeric Health System results) ID Date Data Source [id number] 05/08/2020 02:01:01 AM EDT [facility] Name Value Range Interpretation Description Data Sup porting Code Source(s) Document(s ) Influenza virus Negative Normal (applies Flu A Viral [facility] A RNA [Presence] to non-numeric RNA Health in Unspecified results) System specimen by Probe and target amplification method Influenza virus Negative Normal (applies Flu B Viral [facility] B RNA [Presence] to non-numeric RNA Health in Unspecified results) System specimen by Probe and target amplification method ID NOW Influenza A & B 2 is an automated multiplex assay that utilizes isothermal nucleic acid amplification technology fo r the differential and qualitative detection of influenza A and influenza B viral nuc leic acids ID Date Data Source [id number] 05/08/2020 02:01:01 AM EDT [facility] Name Value Range Interpretation Description Data Sup porting Code Source(s) Document(s ) 49910-7 NEGATIVE Testing Normal (applies COVID-19.. [facility] was performed to non-numeric Health Syst em using [place] ID results) NOW COVID-19, an isothermal nucleic acid amplification technology for the qualitative detection of nucleic acid from the SARS-CoV-2 viral RNA in respiratory specimens. The ID NOW COVID-19 test has been approved by the Food and Drug Administration (FDA) under an Emergency Use Authorization for use by authorized laboratories. Reference Range: NEGATIVE . ID Date Data Source [id number] 05/08/2020 02:01:01 AM EDT [facility] Name Value Range Interpretation Description Data Sup porting Code Source(s) Document(s ) Bacteria NO GROWTH Culture [facility] identified in Bacteria Blood Health Syst em Blood by Aerobe culture ID Date Data Source [id number] 05/08/2020 02:01:01 AM EDT [facility] Name Value Range Interpretation Description Data Sup porting Code Source(s) Document(s ) Leukocytes 9.6 Normal (applies WBC Count [facility] [#/volume] in {10^3_uL to non-numeric Health Unspecified } results) System specimen by Automated count Erythrocytes 3.77 Below low normal RBC Count [facility] [#/volume] in {10^6_uL Health Blood by } System Automated count Hemoglobin 11.7 Below low normal Hemoglobin [facility] [Mass/volume] in {gm/dL} Health Blood System Hematocrit 34.6 % Below low normal Hematocrit [facility] [Volume Health Fraction] of System Blood Erythrocyte mean 91.8 fl Normal (applies MCV [facility] corpuscular to non-numeric Health volume [Entitic results) System volume] by Automated count Erythrocyte mean 31.0 pg Normal (applies MCH [facility] corpuscular to non-numeric Health hemoglobin results) System [Entitic mass] by Automated count Erythrocyte 12.9 % Normal (applies RDW-CV [facility] distribution to non-numeric Health width [Entitic results) System volume] by Automated count Erythrocyte mean 33.8 Normal (applies MCHC [facility] corpuscular {gm/dL} to non-numeric Health hemoglobin results) System concentration [Mass/volume] by Automated count Platelets 283 Normal (applies Platelet Count [facility] [#/volume] in {10^3_uL to non-numeric Health Plasma by } results) System Automated count Platelet mean 10.3 fl Normal (applies MPV [facility] volume [Entitic to non-numeric Health volume] in Blood results) System by Automated count Monocytes 0.8 Normal (applies Monocyte # [facility] [#/volume] in {10^3_uL to non-numeric Health Blood by Manual } results) System count Eosinophils 0.21 Normal (applies Eosinophil # [facility] [#/volume] in {10^3_uL to non-numeric Health Blood } results) System Neutrophils 5.7 Normal (applies Neutrophil # [facility] [#/volume] in {10^3_uL to non-numeric Health Body fluid } results) System Basophils 0.07 Normal (applies Basophil # [facility] [#/volume] in {10^3_uL to non-numeric Health Blood by } results) System Automated count Lymphocyte 2.8 Normal (applies Lymphocyte # [facility] percent {10^3_uL to non-numeric Health differential } results) System count (procedure) Neutrophils/100 59.4 % Normal (applies Neutrophil % [facility] bud leukocytes in to non-numeric Health Blood by results) System Automated count Monocytes/100 8.5 % Normal (applies Monocyte % [facility] leukocytes in to non-numeric Health Blood results) System Eosinophils/100 2.2 % Normal (applies Eosinophil % [facility] bud leukocytes in to non-numeric Health Unspecified results) System specimen Basophils/100 0.7 % Normal (applies Basophil % [facility] leukocytes in to non-numeric Health Unspecified results) System specimen by Manual count Lymphocytes 28.9 % Normal (applies Lymphocyte % [facility] [#/volume] in to non-numeric Health Blood by results) System Automated count ImmatureGranuloc 0.3 % Normal (applies Immature [facility] ytes% to non-numeric Granulocytes % Health results) System Nucleated 0.0 Normal (applies NRBC % [facility] erythrocytes {/100_WB to non-numeric Health [#/volume] in C} results) System Body fluid ImmatureGranuloc 0.03 Normal (applies Immature [facility] ytes# {10^3_uL to non-numeric Granulocytes # Health } results) System NRBC# 0.00 Below low normal NRBC # [facility] {10^3_uL Health } System ID Date Data Source [id number] 05/08/2020 02:01:01 AM EDT [facility] Name Value Range Interpretation Description Data Sup porting Code Source(s) Document(s ) Sodium 138 Normal (applies Sodium, Serum [facility] [Moles/volume] in mmol/L to non-numeric Health Serum or Plasma results) System Potassium 4.0 Normal (applies Potassium, [facility] [Mass/volume] in mmol/L to non-numeric Serum Health Serum or Plasma results) System Chloride 102 Normal (applies Chloride, [facility] [Moles/volume] in mmol/L to non-numeric Serum Health Serum or Plasma results) System Carbon dioxide, 29.0 Normal (applies CO2, Serum [facility] total mmol/L to non-numeric Health [Moles/volume] in results) System Serum or Plasma TotalProtein 6.6 Normal (applies Total Protein [facility] mg/dl to non-numeric Health results) System Glucose 78 Normal (applies Glucose, [facility] [Mass/volume] in mg/dL to non-numeric Serum Health Serum or Plasma results) System Urea nitrogen 17 Normal (applies Blood Urea [facility] [Mass/volume] in mg/dl to non-numeric Nitrogen, Health Serum or Plasma results) Serum System Creatinine 0.70 Normal (applies Creatinine, [facility] [Mass/volume] in mg/dl to non-numeric Serum Health Serum or Plasma results) System Alkaline 79 Normal (applies Alkaline [facility] phosphatase {IU/L} to non-numeric Phosphatase, Health isoenzymes results) Serum System [Enzymatic activity/volume] in Serum or Plasma by Heat stability Bilirubin.total 0.4 Normal (applies Bilirubin, [facility] [Mass/volume] in mg/dl to non-numeric Serum Total Health Serum or Plasma results) System DirectBilirubin 0.2 Normal (applies Direct [facility] mg/dl to non-numeric Bilirubin Health results) System Aspartate 19 Normal (applies Aspartate [facility] aminotransferase {IU/L} to non-numeric Transaminase, Heal th [Enzymatic results) Serum System activity/volume] in Serum or Plasma by With P-5'-P Albumin 3.7 Below low normal Albumin, [facility] [Mass/volume] in {gm/dl} Serum Health Serum or Plasma System I.Phosphorus 3.6 Normal (applies I. Phosphorus [facility] mg/dl to non-numeric Health results) System Alanine 16 Normal (applies Alanine [facility] aminotransferase {IU/L} to non-numeric Aminotransfer Heal th [Enzymatic results) ase, Serum System activity/volume] in Serum or Plasma Calcium 8.9 Normal (applies Calcium, [facility] [Mass/volume] in mg/dl to non-numeric Total Serum Health Serum or Plasma results) System A/GRatio 1.28 Normal (applies A/G Ratio [facility] to non-numeric Health results) System Urate 3.9 Normal (applies Uric Acid, [facility] [Mass/volume] in mg/dl to non-numeric Serum Health Serum or Plasma results) System Anion gap in Serum 7.00 Below low normal Anion Gap [facility] or Plasma mmol/L Health System Glomerular 89.96 Normal (applies GFR [facility] filtration to non-numeric Health rate/1.73 sq results) System M.predicted [Volume Rate/Area] in Serum or Plasma by Creatinine-based formula (CKD-EPI) eGFR will provide clinicians with a more accurate indicator of renal function then the serum creatinine. The eGFR is automa tically calculated from an empiric formula (endorsed by the National Kidney Found[employer] ion) which incorporates age, sex, and race.Clinicians may notice surprisingly low GFR's with serum creatinine valueswithin normal range- particularly in elderly wo men (with low muscle mass).In the hospital setting, the eGFR should add an element of safety in drug dosing, in assessing the risk of IV contrast administration, and in assessing vascular risk.The NKF staging system is as follows:Normal: eGFR >90 with no kidney markersStage 1: eGFR >90 with kidney markers*Stage 2: eGFR 60- 89Stage 3: eGFR 30-59Stage 4: eGFR 15-29Stage 5: eGFR <15 (usually requir ing dialysis)*Markers include: Proteinuria, Hematuria, abnormal imaging-studies, or other blood or urine test abnormalities ID Date Data Source [id number] 05/08/2020 02:01:01 AM YOMAIRADileep [facility]ervantes alth System Name Value Range Interpretation Description Data Source(s ) Supporting Code Document(s ) 04966-9 NEGATIVE Normal (applies to SARS-COV-2 IgG [facility] non-numeric Health System results) Results of antibody testing should not b e used to determine fitness for work or isolation status.It is not known for lawanda hammond whether individuals infected with SARS-CoV-2 who subsequently recover will be protected, either fully or partially, from infection with SARS-CoV-2 or how lo ng protective immunity may last. It is also not known whether the presence or absenc e of antibody can predict protection from infection in the future.Results from ant ibody testing should not be used as the sole basis to diagnose or exclude SARS-CoV-2 infection or to inform infection status.Positive results may be due to pa st or present infection with [id number] coronavirus strains, such as coronavirus HKU1, NL63, OC43, or 229E.Not for the screening of donated blood.This test has been authorized by the FDA under an emergency authorization (EUA) for use by authorized laboratories. Reference Range: Negative . ID Date Data Source [id number] 05/08/2020 02:01:01 AM [facility] Janie [facility] alth System Name Value Range Interpretation Description Data Sup porting Code Source(s) Document(s ) Amphetamine Negative Normal (applies Amphetamine [facility] [Mass/volume] to non-numeric Level, Urine Health in Urine results) System Cut-off = 1000 ng/mL Barbiturates Negative Normal (applies to Barbiturate [facility] [Mass/volume] in non-numeric Screen, Urine Health System Urine by Screen results) method Cut-off = 200 ng/mL Benzodiazepines Negative Normal (applies Benzodiazepines, [facility] [Mass/volume] in to non-numeric Urine Health S ystem Urine results) Cut-off = 200 ng/mL Cocaine Positive Abnormal (applies Cocaine [facility] metabolites.other to non-numeric Metabolite Health System [Mass/volume] in Urine results) Screen, Urine Cut-off = 300 ng/mL Methadone Negative Normal (applies to Methadone Level, Health system Health [Mass/volume] in non-numeric Urine System Urine results) Cut-off = 300 ng/mL [id number],Urine Positive Abnormal (applies to Opiate 300, [facility] non-numeric results) Urine System Cut-off = 300 ng/mL Phencyclidine Negative Normal (applies Phencyclidine, Urine [facility] [Mass/volume] in to non-numeric Health S ystem Urine results) Cut-off = 25 ng/mL Cannabinoid(THC) Negative Normal (applies to Cannabinoid (THC) [facility] non-numeric [facility] results) Cutt-off = 50These results are for medic al treatment only. The positive findings are unconfirmed. Request confirmatory/quanti tative test if needed. ID Date Data Source [id number] 05/08/2020 02:01:01 AM EDT [facility] Name Value Range Interpretation Description Data Sup porting Code Source(s) Document(s ) Leukocytes 13.2 Above high normal WBC Count [facility] [#/volume] in {10^3_uL Health Unspecified } System specimen by Automated count Erythrocytes 4.42 Normal (applies RBC Count [facility] [#/volume] in {10^6_uL to non-numeric Health Blood by } results) System Automated count Hemoglobin 13.6 Normal (applies Hemoglobin [facility] [Mass/volume] in {gm/dL} to non-numeric Health Blood results) System Hematocrit 41.0 % Normal (applies Hematocrit [facility] [Volume to non-numeric Health Fraction] of results) System Blood Erythrocyte mean 92.8 fl Normal (applies MCV [facility] corpuscular to non-numeric Health volume [Entitic results) System volume] by Automated count Erythrocyte mean 30.8 pg Normal (applies MCH [facility] corpuscular to non-numeric Health hemoglobin results) System [Entitic mass] by Automated count Erythrocyte mean 33.2 Normal (applies MCHC [facility] corpuscular {gm/dL} to non-numeric Health hemoglobin results) System concentration [Mass/volume] by Automated count Erythrocyte 12.6 % Normal (applies RDW-CV [facility] distribution to non-numeric Health width [Entitic results) System volume] by Automated count Platelets 293 Normal (applies Platelet [facility] [#/volume] in {10^3_uL to non-numeric Count Health Plasma by } results) System Automated count Platelet mean 10.2 fl Normal (applies MPV [facility] volume [Entitic to non-numeric Health volume] in Blood results) System by Automated count ID Date Data Source [id number] 05/08/2020 02:01:01 AM EDT [facility] Name Value Range Interpretation Description Data Sup porting Code Source(s) Document(s ) Amphetamine Negative Normal (applies Amphetamine [facility] [Mass/volume] to non-numeric Level, Urine Health in Urine results) System Cut-off = 1000 ng/mL Barbiturates Negative Normal (applies to Barbiturate [facility] [Mass/volume] in non-numeric Screen, Urine Health System Urine by Screen results) method Cut-off = 200 ng/mL Benzodiazepines Negative Normal (applies Benzodiazepines, [facility] [Mass/volume] in to non-numeric Urine Health S ystem Urine results) Cut-off = 200 ng/mL Cocaine Positive Abnormal (applies Cocaine [facility] metabolites.other to non-numeric Metabolite Health System [Mass/volume] in Urine results) Screen, Urine Cut-off = 300 ng/mL Methadone Positive Abnormal (applies Methadone Level, [facility] Health [Mass/volume] in to non-numeric Urine System Urine results) Cut-off = 300 ng/mL [id number],Urine Positive Abnormal (applies to Opiate 300, [facility] non-numeric results) Urine System Cut-off = 300 ng/mL Phencyclidine Negative Normal (applies Phencyclidine, Urine [facility] [Mass/volume] in to non-numeric Health S ystem Urine results) Cut-off = 25 ng/mL Cannabinoid(THC) Negative Normal (applies to Cannabinoid (THC) [facility] non-numeric System results) Cutt-off = 50These results are for medic al treatment only. The positive findings are unconfirmed. Request confirmatory/quanti tative test if needed. ID Date Data Source [id number] 05/08/2020 02:01:01 AM EDT [facility] Name Value Range Interpretation Description Data Sup porting Code Source(s) Document(s ) Bacteria NO GROWTH Culture [facility] identified in Bacteria Blood Health Syst em Blood by Aerobe culture ID Date Data Source [id number] 05/08/2020 02:01:01 AM EDT [facility] Name Value Range Interpretation Description Data Sup porting Code Source(s) Document(s ) Bacteria NO GROWTH Culture [facility] identified in Bacteria Blood Health Syst em Blood by Aerobe culture ID Date Data Source [id number] 05/08/2020 02:01:01 AM EDT [facility] Name Value Range Interpretation Description Data Sup porting Code Source(s) Document(s ) Influenza virus Negative Normal (applies Flu A Viral [facility] A RNA [Presence] to non-numeric RNA Health in Unspecified results) System specimen by Probe and target amplification method Influenza virus Negative Normal (applies Flu B Viral [facility] B RNA [Presence] to non-numeric RNA Health in Unspecified results) System specimen by Probe and target amplification method ID NOW Influenza A & B 2 is an automated multiplex assay that utilizes isothermal nucleic acid amplification technology fo r the differential and qualitative detection of influenza A and influenza B viral nuc leic acids ID Date Data Source [id number] 05/08/2020 02:01:01 AM EDT [facility] Name Value Range Interpretation Description Data Source(s ) Supporting Code Document(s ) PH* 7.378 Normal (applies to PH* [facility] {pH_units non-numeric Health System } results) PCO2* 53.4 Above high normal PCO2* [facility] {mm_Hg} [facility] BaseExce 6.30 Above high normal Base Excess* [facility] ss* {mEq/L} Health System HCO3* 31.4 Above high normal HCO3* [facility] mmol/L [facility] Chloride 102 Normal (applies to Chloride, VB [facility] ,VB mmol/L non-numeric Health System results) Lactate. 0.8 Normal (applies to Lactate. [facility] mmol/L non-numeric [facility] System results) Glucose, 84 mg/dL Normal (applies to Glucose, VB [facility] non-numeric [facility] System results) Potassiu 3.8 Normal (applies to Potassium, VB [facility] m,VB mmol/L non-numeric Health System results) Sodium,V 142 Normal (applies to Sodium, VB [facility] B mmol/L non-numeric Health System results) IonizedC 1.21 Normal (applies to Ionized [facility] alcium,V mmol/L non-numeric Calcium, VB Health System B results) [id number] 63.00 % Normal (applies to O2 Saturation* [facility] tion* non-numeric Health System results) ID Date Data Source [id number] 05/08/2020 02:01:01 AM EDT [facility] Name Value Range Interpretation Description Data Sup porting Code Source(s) Document(s ) 39763-3 NEGATIVE Testing Normal (applies COVID-19.. [facility] was performed to non-numeric Health Syst em using [place] ID results) NOW COVID-19, an isothermal nucleic acid amplification technology for the qualitative detection of nucleic acid from the SARS-CoV-2 viral RNA in respiratory specimens. The ID NOW COVID-19 test has been approved by the Food and Drug Administration (FDA) under an Emergency Use Authorization for use by authorized laboratories. Reference Range: NEGATIVE . ID Date Data Source [id number] 05/08/2020 02:01:01 AM EDT [facility] Name Value Range Interpretation Description Data Sup porting Code Source(s) Document(s ) Type O Normal (applies Type [facility] to non-numeric Health results) System D Ab [Titer] in Positive Normal (applies Rh [facility] Serum or Plasma to non-numeric Health results) System AntibodyScreen Negative Normal (applies Antibody [facility] to non-numeric Screen Health results) System ID Date Data Source [id number] 05/08/2020 02:01:01 AM EDT [facility] Name Value Range Interpretation Description Data Sup porting Code Source(s) Document(s ) Leukocytes 11.1 Above high WBC Count [facility] [#/volume] in {10^3_uL normal Health Unspecified } System specimen by Automated count Erythrocytes 4.38 Normal (applies RBC Count [facility] [#/volume] in {10^6_uL to non-numeric Health Blood by } results) System Automated count Hemoglobin 13.4 Normal (applies Hemoglobin [facility] [Mass/volume] in {gm/dL} to non-numeric Health Blood results) System Hematocrit 40.1 % Normal (applies Hematocrit [facility] [Volume to non-numeric Health Fraction] of results) System Blood Erythrocyte mean 91.6 fl Normal (applies MCV [facility] corpuscular to non-numeric Health volume [Entitic results) System volume] by Automated count Erythrocyte mean 30.6 pg Normal (applies MCH [facility] corpuscular to non-numeric Health hemoglobin results) System [Entitic mass] by Automated count Erythrocyte mean 33.4 Normal (applies MCHC [facility] corpuscular {gm/dL} to non-numeric Health hemoglobin results) System concentration [Mass/volume] by Automated count Erythrocyte 12.6 % Normal (applies RDW-CV [facility] distribution to non-numeric Health width [Entitic results) System volume] by Automated count Platelets 369 Normal (applies Platelet Count [facility] [#/volume] in {10^3_uL to non-numeric Health Plasma by } results) System Automated count Platelet mean 10.2 fl Normal (applies MPV [facility] volume [Entitic to non-numeric Health volume] in Blood results) System by Automated count Monocytes 0.7 Normal (applies Monocyte # [facility] [#/volume] in {10^3_uL to non-numeric Health Blood by Manual } results) System count Eosinophils 0.18 Normal (applies Eosinophil # [facility] [#/volume] in {10^3_uL to non-numeric Health Blood } results) System Neutrophils 6.6 Normal (applies Neutrophil # [facility] [#/volume] in {10^3_uL to non-numeric Health Body fluid } results) System Basophils 0.06 Normal (applies Basophil # [facility] [#/volume] in {10^3_uL to non-numeric Health Blood by } results) System Automated count Lymphocyte 3.5 Normal (applies Lymphocyte # [facility] percent {10^3_uL to non-numeric Health differential } results) System count (procedure) Neutrophils/100 59.6 % Normal (applies Neutrophil % Jose Antonio bud leukocytes in to non-numeric Health Blood by results) System Automated count Monocytes/100 6.4 % Normal (applies Monocyte % [facility] leukocytes in to non-numeric Health Blood results) System Eosinophils/100 1.6 % Normal (applies Eosinophil % [place] Antonio bud leukocytes in to non-numeric Health Unspecified results) System specimen Basophils/100 0.5 % Normal (applies Basophil % [facility] leukocytes in to non-numeric Health Unspecified results) System specimen by Manual count Lymphocytes 31.7 % Normal (applies Lymphocyte % [facility] [#/volume] in to non-numeric Health Blood by results) System Automated count ImmatureGranuloc 0.2 % Normal (applies Immature [facility] ytes% to non-numeric Granulocytes % Health results) System Nucleated 0.0 Normal (applies NRBC % [facility] erythrocytes {/100_WB to non-numeric Health [#/volume] in C} results) System Body fluid ImmatureGranuloc 0.02 Normal (applies Immature [facility] ytes# {10^3_uL to non-numeric Granulocytes # Health } results) System NRBC# 0.00 Below low normal NRBC # [facility] {10^3_uL Health } System ID Date Data Source [id number] 05/08/2020 02:01:01 AM EDT [facility] Name Value Range Interpretation Description Data Sup porting Code Source(s) Document(s ) Sodium 140 Normal (applies Sodium, Serum [facility] [Moles/volume] in mmol/L to non-numeric Health Serum or Plasma results) System Potassium 3.9 Normal (applies Potassium, [facility] [Mass/volume] in mmol/L to non-numeric Serum Health Serum or Plasma results) System Chloride 100 Normal (applies Chloride, [facility] [Moles/volume] in mmol/L to non-numeric Serum Health Serum or Plasma results) System Carbon dioxide, 27.0 Normal (applies CO2, Serum [facility] total mmol/L to non-numeric Health [Moles/volume] in results) System Serum or Plasma TotalProtein 8.2 Normal (applies Total Protein [facility] mg/dl to non-numeric Health results) System Glucose 73 Normal (applies Glucose, [facility] [Mass/volume] in mg/dL to non-numeric Serum Health Serum or Plasma results) System Urea nitrogen 25 Above high Blood Urea [facility] [Mass/volume] in mg/dl normal Nitrogen, Health Serum or Plasma Serum System Creatinine 0.80 Normal (applies Creatinine, [facility] [Mass/volume] in mg/dl to non-numeric Serum Health Serum or Plasma results) System Alkaline 96 Normal (applies Alkaline [facility] phosphatase {IU/L} to non-numeric Phosphatase, Health isoenzymes results) Serum System [Enzymatic activity/volume] in Serum or Plasma by Heat stability Bilirubin.total 0.3 Normal (applies Bilirubin, [facility] [Mass/volume] in mg/dl to non-numeric Serum Total Health Serum or Plasma results) System DirectBilirubin 0.2 Normal (applies Direct [facility] mg/dl to non-numeric Bilirubin Health results) System Aspartate 22 Normal (applies Aspartate [facility] aminotransferase {IU/L} to non-numeric Transaminase, Heal th [Enzymatic results) Serum System activity/volume] in Serum or Plasma by With P-5'-P Albumin 4.7 Normal (applies Albumin, [facility] [Mass/volume] in {gm/dl} to non-numeric Serum Health Serum or Plasma results) System I.Phosphorus 4.5 Normal (applies I. Phosphorus [facility] mg/dl to non-numeric Health results) System Alanine 23 Normal (applies Alanine [facility] aminotransferase {IU/L} to non-numeric Aminotransfer Heal th [Enzymatic results) ase, Serum System activity/volume] in Serum or Plasma Calcium 9.8 Normal (applies Calcium, [facility] [Mass/volume] in mg/dl to non-numeric Total Serum Health Serum or Plasma results) System A/GRatio 1.34 Normal (applies A/G Ratio [facility] to non-numeric Health results) System Urate 4.2 Normal (applies Uric Acid, [facility] [Mass/volume] in mg/dl to non-numeric Serum Health Serum or Plasma results) System Anion gap in Serum 13.00 Above high Anion Gap [facility] or Plasma mmol/L normal Health System Glomerular 77.11 Normal (applies GFR [facility] filtration to non-numeric Health rate/1.73 sq results) System M.predicted [Volume Rate/Area] in Serum or Plasma by Creatinine-based formula (CKD-EPI) eGFR will provide clinicians with a more accurate indicator of renal function then the serum creatinine. The eGFR is automa tically calculated from an empiric formula (endorsed by the [employer] ion) which incorporates age, sex, and race.Clinicians may notice surprisingly low GFR's with serum creatinine valueswithin normal range- particularly in elderly wo men (with low muscle mass).In the hospital setting, the eGFR should add an element of safety in drug dosing, in assessing the risk of IV contrast administration, and in assessing vascular risk.The NKF staging system is as follows:Normal: eGFR >90 with no kidney markersStage 1: eGFR >90 with kidney markers*Stage 2: eGFR 60- 89Stage 3: eGFR 30-59Stage 4: eGFR 15-29Stage 5: eGFR <15 (usually requir ing dialysis)*Markers include: Proteinuria, Hematuria, abnormal imaging-studies, or other blood or urine test abnormalities ID Date Data Source [id number] 05/08/2020 02:01:01 AM EDT [facility] Name Value Range Interpretation Description Data Sup porting Code Source(s) Document(s ) aPTT in Blood 30.1 Normal (applies Activated [facility] by Coagulation {Seconds to non-numeric Partial Health assay } results) Thromboplastin System Time ID Date Data Source [id number] 05/08/2020 02:01:01 AM EDT [facility] Name Value Range Interpretation Description Data Sup porting Code Source(s) Document(s ) Prothrombintim 10.70 Normal (applies Prothrombin [facility](PT) {seconds to non-numeric time (PT) Health System } results) INR in Blood 1.02 Normal (applies INR Result [facility] by Coagulation {Ratio} to non-numeric Health Sys tem assay results) Normal = 0.7-1.1Therapeutic = 2.0-3.0Mec hanical Heart = 3.0-4.5 ID Date Data Source [id number] 05/08/2020 02:01:01 AM EDT [facility] Name Value Range Interpretation Description Data Sup porting Code Source(s) Document(s ) Bacteria NO GROWTH Culture [facility] identified in Bacteria Blood [facility] Syst [facility] Blood by Aerobe culture ID Date Data Source [id number] 05/08/2020 02:01:01 AM EDT [facility] Name Value Range Interpretation Description Data Sup porting Code Source(s) Document(s ) Type O Normal (applies Type [facility] to non-numeric Health results) System D Ab [Titer] in Positive Normal (applies Rh [facility] Serum or Plasma to non-numeric Health results) System AntibodyScreen Negative Normal (applies Antibody [facility] to non-numeric Screen Health results) System ID Date Data Source [id number] 05/08/2020 02:01:01 AM EDT [facility] Name Value Range Interpretation Description Data Sup porting Code Source(s) Document(s ) Leukocytes 12.2 Above high normal WBC Count [facility] [#/volume] in {10^3_uL Health Unspecified } System specimen by Automated count Erythrocytes 3.91 Normal (applies RBC Count [facility] [#/volume] in {10^6_uL to non-numeric Health Blood by } results) System Automated count Hemoglobin 12.1 Normal (applies Hemoglobin [facility] [Mass/volume] in {gm/dL} to non-numeric Health Blood results) System Hematocrit 36.0 % Normal (applies Hematocrit [facility] [Volume to non-numeric Health Fraction] of results) System Blood Erythrocyte mean 92.1 fl Normal (applies MCV [facility] corpuscular to non-numeric Health volume [Entitic results) System volume] by Automated count Erythrocyte mean 30.9 pg Normal (applies MCH [facility] corpuscular to non-numeric Health hemoglobin results) System [Entitic mass] by Automated count Erythrocyte mean 33.6 Normal (applies MCHC [facility] corpuscular {gm/dL} to non-numeric Health hemoglobin results) System concentration [Mass/volume] by Automated count Erythrocyte 12.7 % Normal (applies RDW-CV [facility] distribution to non-numeric Health width [Entitic results) System volume] by Automated count Platelets 332 Normal (applies Platelet [facility] [#/volume] in {10^3_uL to non-numeric Count Health Plasma by } results) System Automated count Platelet mean 10.5 fl Above high normal MPV [facility] volume [Entitic Health volume] in Blood System by Automated count ID Date Data Source [id number] 05/08/2020 02:01:01 AM EDT [facility] Name Value Range Interpretation Description Data Sup porting Code Source(s) Document(s ) Magnesium 2.0 Normal (applies Magnesium, [facility] [Mass/volume] {mEq/L} to non-numeric Serum Health Syst em in Serum or results) Plasma ID Date Data Source [id number] 05/08/2020 02:01:01 AM EDT [facility] Name Value Range Interpretation Description Data Sup porting Code Source(s) Document(s ) Sodium 139 Normal (applies Sodium, Serum [facility] [Moles/volume] in mmol/L to non-numeric Health Serum or Plasma results) System Potassium 4.3 Normal (applies Potassium, [facility] [Mass/volume] in mmol/L to non-numeric Serum Health Serum or Plasma results) System Chloride 104 Normal (applies Chloride, [facility] [Moles/volume] in mmol/L to non-numeric Serum Health Serum or Plasma results) System Carbon dioxide, 24.0 Normal (applies CO2, Serum [facility] total mmol/L to non-numeric Health [Moles/volume] in results) System Serum or Plasma TotalProtein 6.7 Normal (applies Total Protein [facility] mg/dl to non-numeric Health results) System Glucose 95 Normal (applies Glucose, [facility] [Mass/volume] in mg/dL to non-numeric Serum Health Serum or Plasma results) System Urea nitrogen 24 Above high Blood Urea [facility] [Mass/volume] in mg/dl normal Nitrogen, Health Serum or Plasma Serum System Creatinine 0.60 Below low normal Creatinine, [facility] [Mass/volume] in mg/dl Serum Health Serum or Plasma System Alkaline 92 Normal (applies Alkaline [facility] phosphatase {IU/L} to non-numeric Phosphatase, Health isoenzymes results) Serum System [Enzymatic activity/volume] in Serum or Plasma by Heat stability Bilirubin.total 0.2 Normal (applies Bilirubin, [facility] [Mass/volume] in mg/dl to non-numeric Serum Total Health Serum or Plasma results) System DirectBilirubin 0.1 Normal (applies Direct [facility] mg/dl to non-numeric Bilirubin Health results) System Aspartate 18 Normal (applies Aspartate [facility] aminotransferase {IU/L} to non-numeric Transaminase, Heal th [Enzymatic results) Serum System activity/volume] in Serum or Plasma by With P-5'-P Albumin 3.8 Below low normal Albumin, [facility] [Mass/volume] in {gm/dl} Serum Health Serum or Plasma System I.Phosphorus 3.5 Normal (applies I. Phosphorus [facility] mg/dl to non-numeric Health results) System Alanine 19 Normal (applies Alanine [facility] aminotransferase {IU/L} to non-numeric Aminotransfer Heal th [Enzymatic results) ase, Serum System activity/volume] in Serum or Plasma Calcium 8.7 Normal (applies Calcium, [facility] [Mass/volume] in mg/dl to non-numeric Total Serum Health Serum or Plasma results) System A/GRatio 1.31 Normal (applies A/G Ratio [facility] to non-numeric Health results) System Urate 3.4 Normal (applies Uric Acid, [facility] [Mass/volume] in mg/dl to non-numeric Serum Health Serum or Plasma results) System Anion gap in Serum 11.00 Normal (applies Anion Gap Jose Antonio bud or Plasma mmol/L to non-numeric Health results) System Glomerular > 90 Normal (applies GFR [facility] filtration to non-numeric Health rate/1.73 sq results) System M.predicted [Volume Rate/Area] in Serum or Plasma by Creatinine-based formula (CKD-EPI) eGFR will provide clinicians with a more accurate indicator of renal function then the serum creatinine. The eGFR is automa tically calculated from an empiric formula (endorsed by the [employer] Kid[employer] ion) which incorporates age, sex, and race.Clinicians may notice surprisingly low GFR's with serum creatinine valueswithin normal range- particularly in elderly wo men (with low muscle mass).In the hospital setting, the eGFR should add an element of safety in drug dosing, in assessing the risk of IV contrast administration, and in assessing vascular risk.The NKF staging system is as follows:Normal: eGFR >90 with no kidney markersStage 1: eGFR >90 with kidney markers*Stage 2: eGFR 60- 89Stage 3: eGFR 30-59Stage 4: eGFR 15-29Stage 5: eGFR <15 (usually requir ing dialysis)*Markers include: Proteinuria, Hematuria, abnormal imaging-studies, or other blood or urine test abnormalities ID Date Data Source [id number] 05/08/2020 02:01:01 AM EDT [facility] System Name Value Range Interpretation Description Data Sup porting Code Source(s) Document(s ) aPTT in Blood 28.7 Normal (applies Activated [facility] by Coagulation {Seconds to non-numeric Partial Health assay } results) Thromboplastin System Time ID Date Data Source [id number] 05/08/2020 02:01:01 AM EDT [facility] Name Value Range Interpretation Description Data Sup porting Code Source(s) Document(s ) Prothrombintim 10.60 Normal (applies Prothrombin [facility](PT) {seconds to non-numeric time (PT) Health System } results) INR in Blood 1.01 Normal (applies INR Result [facility] by Coagulation {Ratio} to non-numeric Health Sys tem assay results) Normal = 0.7-1.1Therapeutic = 2.0-3.0Mec hanical Heart = 3.0-4.5 ID Date Data Source [id number] 05/08/2020 02:01:01 AM EDT [facility] System Name Value Range Interpretation Description Data Sup porting Code Source(s) Document(s ) TissueExam Results for case # Normal (applies Tissue Exam [facility] [id number] to non-[facility] SURGICAL PATHOLOGY results) System REPORTCLINICAL INFORMATION: Abscess, left neck base. PREOPERATIVE DIAGNOSIS: Same. POSTOPERATIVE DIAGNOSIS: FINAL DIAGNOSIS: Skin, left neck base, biopsy:Reactive squamous proliferation with displaced squamous epithelium into the dermis to the base of the biopsy with associated fibrinous exudate and acute inflammation.COMME NT:History of injection at the site is noted in the electronic medical record.GO/Calderon HANLEY MDElectronically Signed By: GROSS DESCRIPTION: In formalin, labeled "skin biopsy left neck base", the specimen consists of 2 irregular, regalado white soft portions of tissue measuring 0.5 x 0.3 x 0.2cm and 1.0 x 0.3 x 0.2cm. The specimens are inked at the resection margin and are entirely submitted in one cassette.MV/stPage 1 of 1Testing performed at [facility], [address] [place] [address]. ID Date Data Source [id number] 05/08/2020 02:01:01 AM EDT [facility] System Source Description: c/a wound left side neck baseSpecimen Description: c/s wound left side neck base Name Value Range Interpretation Description Data Sup porting Code Source(s) Document(s ) Bacteria Micro Result Normal (applies Culture, Wound [facility] identified in to non-[facility] Wound by results) System Culture XXX Staphylococcus Organism [facility] microorganism [facility] Health serotype System [Identifier] in Isolate by Agglutination ColonyCount MANY [place] Count [facility] Vancomycin BEKAH Health for this System isolate is 1.5 ug/mL. Clinical failures have been documented with this type of heteroresistan t isolate having BEKAH: >1 ug/mL but <4 ug/mL "This S.aureus does not demonstrate inducible clindamycin resistance in vitro" Ciprofloxacin >2 Resistant - [facility] [Susceptibili Ciprofloxacin Health ty] System Clindamycin <=0.5 - Clindamycin [facility] [Susceptibili Sensitive Health ty] System Erythromycin >4 Resistant - [facility] [Susceptibili Erythromycin Health ty] System Gentamicin <=4 Sensitive - Gentamicin [facility] [Susceptibili Health ty] System Oxacillin <=0.25 - Oxacillin [facility] [Mass/volume] Sensitive Health in System Unspecified specimen Penicillin >8 Resistant - Penicillin [facility] [Susceptibili Health ty] System Rifampin <=1 Sensitive - Rifampin [facility] [Mass/volume] Health in Serum or System Plasma Tetracycline <=4 Sensitive - [facility] [Susceptibili Tetracycline Health ty] System Trimethoprim+ <=0.5/9.5 - [facility] Sulfamethoxaz Sensitive Trimethoprim/S Health ole ulfamethoxazol System [Susceptibili e ty] Vancomycin 2 Sensitive - Vancomycin [facility] [Susceptibili Health ty] System ID Date Data Source [id number] 05/08/2020 02:01:01 AM EDT [facility] Name Value Range Interpretation Description Data Sup porting Code Source(s) Document(s ) Leukocytes 9.1 Normal (applies WBC Count [facility] [#/volume] in {10^3_uL to non-numeric Health Unspecified } results) System specimen by Automated count Erythrocytes 3.66 Below low normal RBC Count [facility] [#/volume] in {10^6_uL Health Blood by } System Automated count Hemoglobin 11.2 Below low normal Hemoglobin [facility] [Mass/volume] in {gm/dL} Health Blood System Hematocrit 34.4 % Below low normal Hematocrit [facility] [Volume Health Fraction] of System Blood Erythrocyte mean 94.0 fl Normal (applies MCV [facility] corpuscular to non-numeric Health volume [Entitic results) System volume] by Automated count Erythrocyte mean 30.6 pg Normal (applies MCH [facility] corpuscular to non-numeric Health hemoglobin results) System [Entitic mass] by Automated count Erythrocyte mean 32.6 Below low normal MCHC [facility] corpuscular {gm/dL} Health hemoglobin System concentration [Mass/volume] by Automated count Erythrocyte 12.9 % Normal (applies RDW-CV [facility] distribution to non-numeric Health width [Entitic results) System volume] by Automated count Platelets 303 Normal (applies Platelet Count [facility] [#/volume] in {10^3_uL to non-numeric Health Plasma by } results) System Automated count Platelet mean 10.2 fl Normal (applies MPV [facility] volume [Entitic to non-numeric Health volume] in Blood results) System by Automated count Monocytes 0.8 Normal (applies Monocyte # [facility] [#/volume] in {10^3_uL to non-numeric Health Blood by Manual } results) System count Eosinophils 0.28 Normal (applies Eosinophil # [facility] [#/volume] in {10^3_uL to non-numeric Health Blood } results) System Neutrophils 4.0 Normal (applies Neutrophil # [facility] [#/volume] in {10^3_uL to non-numeric Health Body fluid } results) System Basophils 0.08 Normal (applies Basophil # [facility] [#/volume] in {10^3_uL to non-numeric Health Blood by } results) System Automated count Lymphocyte 3.9 Normal (applies Lymphocyte # [facility] percent {10^3_uL to non-numeric Health differential } results) System count (procedure) Neutrophils/100 43.9 % Below low normal Neutrophil % [facility] leukocytes in Health Blood by System Automated count Monocytes/100 9.1 % Above high Monocyte % [facility] leukocytes in normal Health Blood System Eosinophils/100 3.1 % Normal (applies Eosinophil % Jose Antonio bud leukocytes in to non-numeric Health Unspecified results) System specimen Basophils/100 0.9 % Normal (applies Basophil % [facility] leukocytes in to non-numeric Health Unspecified results) System specimen by Manual count Lymphocytes 42.8 % Normal (applies Lymphocyte % [facility] [#/volume] in to non-numeric Health Blood by results) System Automated count ImmatureGranuloc 0.2 % Normal (applies Immature [facility] ytes% to non-numeric Granulocytes % Health results) System Nucleated 0.0 Normal (applies NRBC % [facility] erythrocytes {/100_WB to non-numeric Health [#/volume] in C} results) System Body fluid ImmatureGranuloc 0.02 Normal (applies Immature [facility] ytes# {10^3_uL to non-numeric Granulocytes # Health } results) System NRBC# 0.00 Below low normal NRBC # [facility] {10^3_uL Health } System ID Date Data Source [id number] 10/05/2013 12:00:00 AM [facility] System Name Value Range Interpretation Description Data Sup porting Code Source(s) Document(s ) TissueExam SEE TEXT Normal (applies Tissue Exam [facility] SURGICAL to non-numeric Health PATHOLOGY results) System REPORTCLINICAL INFORMATION: Missed .PREOPER ATIVE DIAGNOSIS: Same.POSTOPERATI VE DIAGNOSIS:FINAL DIAGNOSIS:Uterin e curettings:Produ cts of conception, hemorrhagic and acutely inflamed.GO/cmGR OSS DESCRIPTION:In formalin, labeled "uterine contents", the specimen consists of a 6.5 x 6.0 x 1.5 cm aggregate of pink-red, spongy tissue. A small amount of possible papilliferous tissue is identified. No parts are grossly identified. [employer] sections are submitted in four cassettes.PT/cmE lectronically signed [email or web address](Signed out 10/06/2013) ID Date Data Source [id number] 10/05/2013 11:08:00 AM [facility] System Name Value Range Interpretation Description Data Sup porting Code Source(s) Document(s ) D Ab [Titer] in Cancelled Rh [facility] Serum or Plasma duplicate/guillermo Health cceptable System specimen AntibodyScreen Cancelled Antibody [facility] duplicate/guillermo Screen Health cceptable System specimen- no handwritten info Type Cancelled Type [facility] duplicate/guillermo Health cceptable System specimen ID Date Data Source [id number] 10/05/2013 11:08:00 AM [facility] System Name Value Range Interpretation Description Data Sup porting Code Source(s) Document(s ) Deprecated NO GROWTH Aerobic [facility] Bacteria Culture, Urine Health System identified in Urine by Aerobe culture ID Date Data Source [id number] 10/05/2013 11:08:00 AM [facility] System Name Value Range Interpretation Description Data Sup porting Code Source(s) Document(s ) Appearance of CLEAR Normal (applies Urine [facility] Urine to non-numeric Appearance Health results) System Specific gravity 1.016 Normal (applies Urine Specific [facility] of Urine to non-numeric [facility] results) System Color Yellow Normal (applies Color [facility] to non-numeric Health results) System BilirubinUrine NEG Normal (applies Bilirubin [facility] to non-numeric Urine Health results) System Glucose,UA NEG Normal (applies Glucose, UA [facility] to non-numeric Health results) System pH.. 5.5 Normal (applies pH.. [facility] {pH_units} to non-numeric Health results) System Protein NEG Normal (applies Protein [facility] [Mass/volume] in to non-numeric Health Serum or Plasma results) System Leukocyte NEG Normal (applies Leukocyte [facility] esterase to non-numeric Esterase Health [Units/volume] results) Concentration System in Urine Ketones NEG Normal (applies Ketones UA [facility] [Mass/volume] in to non-numeric Health Urine results) System Urobilinogen Less than Normal (applies Urobilinogen [facility] [Mass/volume] in 2.0 to non-numeric UA Health Urine Reference results) System Range: Negative or <=2.0 Nitrate+Nitrite Negative Normal (applies Nitrite [facility] [Mass/volume] in to non-numeric Health Unspecified results) System specimen Mucus OCC Normal (applies Mucus [facility] to non-numeric Health results) System RedBloodCells 31 {/HPF} Normal (applies Red Blood [facility] to non-numeric Cells Health results) System Leukocytes 2 {/HPF} Normal (applies White Blood [facility] [#/volume] in to non-numeric Cells Health Unspecified results) System specimen by Automated count Epithelial cells 2 {/HPF} Normal (applies Epithelial [facility] [Presence] in to non-numeric Cells Health Unspecified results) System specimen by Wet preparation UrineBlood MOD(2+) Abnormal Urine Blood [facility] (applies to Health non-numeric System results) ID Date Data Source [id number] 10/05/2013 11:08:00 AM EST [facility] System Name Value Range Interpretation Description Data Sup porting Code Source(s) Document(s ) Leukocytes 8.1 Normal (applies WBC Count [facility] [#/volume] in {10^3_uL to non-numeric Health Unspecified } results) System specimen by Automated count Erythrocytes 3.43 Below low normal RBC Count [facility] [#/volume] in {10^6_uL Health Blood by } System Automated count Hematocrit 30.6 % Below low normal Hematocrit, [facility] [Volume Whole Blood Health Fraction] of System Blood Hemoglobin 10.5 Below low normal Hemoglobin, [facility] [Mass/volume] in {gm/dL} Whole Blood Health Blood System Erythrocyte mean 89.1 fl Normal (applies MCV [facility] corpuscular to non-numeric Health volume [Entitic results) System volume] by Automated count Erythrocyte mean 30.7 pg Normal (applies MCH [facility] corpuscular to non-numeric Health hemoglobin results) System [Entitic mass] by Automated count Erythrocyte mean 34.5 Normal (applies MCHC [facility] corpuscular {gm/dL} to non-numeric Health hemoglobin results) System concentration [Mass/volume] by Automated count Platelet mean 8.1 fl Normal (applies MPV [facility] volume [Entitic to non-numeric Health volume] in Blood results) System by Automated count Platelets 234 Normal (applies Platelet [facility] [#/volume] in {10^3_uL to non-numeric Count Health Plasma by } results) System Automated count Erythrocyte 13.9 % Normal (applies RDW [facility] distribution to non-numeric Health width [Entitic results) System volume] by Automated count Monocytes 0.5 Normal (applies Monocyte [facility] [#/volume] in {10^3_uL to non-numeric Count Health Blood by Manual } results) System count Eosinophils 0.2 Normal (applies Eosinophil [facility] [#/volume] in {10^3_uL to non-numeric Count Blood Health Blood } results) System Neutrophils 5.9 Normal (applies Absolute [facility] [#/volume] in {10^3_uL to non-numeric Neutrophil Health Body fluid } results) Count System Neutrophils/100 72.8 % Normal (applies Neutrophil % [facility] bud leukocytes in to non-numeric Health Blood by results) System Automated count Basophils 0.1 Normal (applies Basophil [facility] [#/volume] in {10^3_uL to non-numeric Count Health Blood by } results) System Automated count Lymphocyte 1.4 Normal (applies Lymphocyte [facility] percent {10^3_uL to non-numeric Absolute Health differential } results) System count (procedure) Monocytes/100 5.9 % Normal (applies Monocyte % [facility] leukocytes in to non-numeric Health Blood results) System Basophils/100 0.7 % Normal (applies Basophil % [facility] leukocytes in to non-numeric Health Unspecified results) System specimen by Manual count Eosinophils/100 3.0 % Normal (applies Eosinophil % [facility] bud leukocytes in to non-numeric Health Unspecified results) System specimen Lymphocytes 17.6 % Normal (applies Lymphocyte % [facility] [#/volume] in to non-numeric Health Blood by results) System Automated count ID Date Data Source [id number] 10/05/2013 11:08:00 AM EST [facility] System Name Value Range Interpretation Description Data Sup porting Code Source(s) Document(s ) hCGQuantitative 1936.00 Above high hCG [facility] {mIU/mL} normal Quantitative Health System Negative = <5 mIU/mLAPPROXIMATE GEST. AG E APPROXIMATE HCG mIU/ML 0.2 - 1 week 5 - 50 1 - 2 w eeks 50 - 500 2 - 3 weeks 100 - 5,000 3 - 4 weeks 500 - 10,000 4 - 5 weeks 1,000 - 50,000 5 - 6 weeks 10,000 - 100,000 6 - 8 weeks 15,000 - 200,000 8 - 12 weeks 10,000 - 1 00,000HCG levels between 5-25 mIU/mL may be indicative of early . Correlati on with other clinical findings and/or repeat of HCG quantitative testing recommened. ID Date Data Source [id number] 10/05/2013 11:08:00 AM EST [facility] System Name Value Range Interpretation Description Data Sup porting Code Source(s) Document(s ) Sodium 137 mmol/L Normal (applies Sodium, [facility] [Moles/volume] to non-numeric Serum Health in Serum or results) System Plasma Potassium 3.9 mmol/L Normal (applies Potassium, [facility] [Mass/volume] to non-numeric Serum Health in Serum or results) System Plasma TotalProtein 6.1 mg/dl Below low Total [facility] normal Protein Health System Carbon dioxide, 24.6 mmol/L Normal (applies CO2, Serum [facility] bud total to non-numeric Health [Moles/volume] results) System in Serum or Plasma Chloride 104 mmol/L Normal (applies Chloride, [facility] [Moles/volume] to non-numeric Serum Health in Serum or results) System Plasma Urea nitrogen 11 mg/dl Normal (applies Blood Urea [facility] [Mass/volume] to non-numeric Nitrogen, Health in Serum or results) Serum System Plasma Creatinine 0.55 mg/dl Normal (applies Creatinine, [facility] [Mass/volume] to non-numeric Serum Health in Serum or results) System Plasma Glucose 100 mg/dL Normal (applies Glucose, [facility] [Mass/volume] to non-numeric Serum Health in Serum or results) System Plasma Alkaline 49 {IU/L} Normal (applies Alkaline [facility] phosphatase to non-numeric Phosphatase, Health isoenzymes results) Serum System [Enzymatic activity/volume ] in Serum or Plasma by Heat stability Bilirubin.total 0.2 mg/dl Normal (applies Bilirubin, [facility] [Mass/volume] to non-numeric Serum Total Health in Serum or results) System Plasma Aspartate 9 {IU/L} Below low Aspartate [facility] aminotransferas normal Transaminase Health e [Enzymatic , Serum System activity/volume ] in Serum or Plasma by With P-5'-P Alanine 6 {IU/L} Below low Alanine [facility] aminotransferas normal Aminotransfe Health e [Enzymatic rase, Serum System activity/volume ] in Serum or Plasma I.Phosphorus 2.9 mg/dl Normal (applies I. [facility] to non-numeric Phosphorus Health results) System Albumin 3.8 {gm/dl} Normal (applies Albumin, [facility] [Mass/volume] to non-numeric Serum Health in Serum or results) System Plasma A/GRatio 1.65 Normal (applies A/G Ratio [facility] to non-numeric Health results) System Calcium 8.8 mg/dl Normal (applies Calcium, [facility] [Mass/volume] to non-numeric Total Serum Health in Serum or results) System Plasma Urate 2.3 mg/dl Normal (applies Uric Acid, [facility] [Mass/volume] to non-numeric Serum Health in Serum or results) System Plasma Glomerular Greater than Normal (applies GFR [facility] filtration 90 eGFR will to non-numeric Health rate/1.73 sq provide results) System M.predicted clinicians [Volume with a more Rate/Area] in accurate Serum or Plasma indicator of by renal function Creatinine-base then the serum d formula creatinine. (CKD-EPI) The eGFR is automatically calculated from an empiric formula (endorsed by the [employer]) which incorporates age, sex, and race.Clinician s may notice surprisingly low GFR's with serum creatinine valueswithin normal range- particularly in elderly women (with low muscle mass).In the hospital setting, the eGFR should add an element of safety in drug dosing, in assessing the risk of IV contrast administration , and in assessing vascular risk.The NKF staging system is as follows:Normal : eGFR >90 with no kidney markersStage 1: eGFR >90 with kidney markers*Stage 2: eGFR 60-89Stage 3: eGFR 30-59Stage 4: eGFR 15-29Stage 5: eGFR <15 (usually requiring dialysis)*Sharif ers include: Proteinuria, Hematuria, abnormal imaging-studie s, or other blood or urine test abnormalities Anion gap in 8.40 mmol/L Normal (applies Anion Gap [facility] Serum or Plasma to non-numeric Health results) System ID Date Data Source [id number] 10/05/2013 01:56:00 PM EST [facility] System Name Value Range Interpretation Description Data Sup porting Code Source(s) Document(s ) Type O Normal (applies Type [facility] to non-numeric Health results) System D Ab [Titer] in Positive Normal (applies Rh [facility] Serum or Plasma to non-numeric Health results) System AntibodyScreen Negative Normal (applies Antibody [facility] to non-numeric Screen Health results) System ID Date Data Source [id number] 10/05/2013 01:56:00 PM EST [facility] System Name Value Range Interpretation Description Data Sup porting Code Source(s) Document(s ) Prothrombintim 11.80 Normal (applies Prothrombin [facility](PT) {seconds to non-numeric time (PT) Health System } results) INR in Blood 1.03 Normal (applies INR Result [facility] by Coagulation {Ratio} to non-numeric Health Sys tem assay results) Normal = 0.7-1.1Therapeutic = 2.0-3.0Mec hanical Heart = 3.0-4.5 ID Date Data Source [id number] 02/07/2019 08:42:00 AM EDT [facility] System Name Value Range Interpretation Description Data Sup porting Code Source(s) Document(s ) Leukocytes [#/volume] 9.8 Normal (applies WBC Count [facility] in Unspecified {10^3_ to non-numeric Health specimen by Automated uL} results) System count Erythrocytes 4.31 Normal (applies RBC Count [facility] [#/volume] in Blood by {10^6_ to non-numeric He alth Automated count uL} results) System Hematocrit [Volume 40.0 % Normal (applies Hematocrit [facility] Fraction] of Blood to non-numeric Health results) System Hemoglobin 13.0 Normal (applies Hemoglobin [facility] [Mass/volume] in Blood {gm/dL to non-numeric He alth } results) System Erythrocyte mean 92.8 Normal (applies MCV [facility] corpuscular volume fl to non-numeric Health [Entitic volume] by results) System Automated count Erythrocyte mean 30.2 Normal (applies MCH [facility] corpuscular hemoglobin pg to non-numeric He alth [Entitic mass] by results) System Automated count Erythrocyte mean 32.5 Below low MCHC [facility] corpuscular hemoglobin {gm/dL normal Health concentration } System [Mass/volume] by Automated count Erythrocyte 13.5 % Normal (applies RDW-CV [facility] distribution width to non-numeric Health [Entitic volume] by results) System Automated count Platelets [#/volume] 273 Normal (applies Platelet [facility] in Plasma by Automated {10^3_ to non-numeric Count He alth count uL} results) System Platelet mean volume 11.2 Above high MPV [facility] [Entitic volume] in fl normal Health Blood by Automated System count Eosinophils [#/volume] 0.00 Below low Eosinophil # [facility] in Blood {10^3_ normal Health uL} System Monocytes [#/volume] 0.8 Normal (applies Monocyte # [facility] in Blood by Manual {10^3_ to non-numeric Health count uL} results) System Neutrophils [#/volume] 5.8 Normal (applies Neutrophil # [facility] in Body fluid {10^3_ to non-numeric Health uL} results) System Basophils [#/volume] 0.08 Normal (applies Basophil # [facility] in Blood by Automated {10^3_ to non-numeric Hea lth count uL} results) System Monocytes/100 8.2 % Normal (applies Monocyte % [facility] leukocytes in Blood to non-numeric Healt h results) System Lymphocyte percent 3.1 Normal (applies Lymphocyte # [facility] differential count {10^3_ to non-numeric Health (procedure) uL} results) System Neutrophils/100 59.0 % Normal (applies Neutrophil % Jose Antonio bud leukocytes in Blood by to non-numeric He alth Automated count results) System Eosinophils/100 0.0 % Normal (applies Eosinophil % [facility] bud leukocytes in to non-numeric Health Unspecified specimen results) System Basophils/100 0.8 % Normal (applies Basophil % [facility] leukocytes in to non-numeric Health Unspecified specimen results) System by Manual count Lymphocytes [#/volume] 31.8 % Normal (applies Lymphocyte % [facility] in Blood by Automated to non-numeric Hea lth count results) System ImmatureGranulocytes% 0.2 % Normal (applies Immature [facility] to non-numeric Granulocytes Health results) % System ImmaturePlateletFracti 7.10 % Normal (applies Immature [facility] on to non-numeric Platelet Health results) Fraction System ImmatureGranulocytes# 0.02 Normal (applies Immature [facility] {10^3_ to non-numeric Granulocytes Health uL} results) # System NRBC# 0.00 Below low NRBC # [facility] {10^3_ normal Health uL} System Nucleated erythrocytes 0.0 Normal (applies NRBC % [facility] [#/volume] in Body {/100_ to non-numeric Health fluid WBC} results) System ID Date Data Source [id number] 02/07/2019 08:42:00 AM EDT [facility] System Name Value Range Interpretation Description Data Source(s ) Supporting Code Document(s ) Reagin Ab Non-react Normal (applies to RPR. [facility] [Presence] greg non-numeric Health System in Serum by results) RPR ID Date Data Source [id number] 02/07/2019 08:47:00 AM EDT [facility] System Name Value Range Interpretation Description Data Source(s ) Supporting Code Document(s ) Pregnanc Negative Normal (applies to Test [facility] yTestUri non-numeric Urine, Health System ne,Visib results) Visibility ilityCol Color Complete orComple te This test can detect HCG urine concentra tion of 25mIU/ml or greater. Negative result at 4 minute reading does not rule out ea rly . If clinically indicated, serum quantitative HCG test should be ordered. ID Date Data Source [id number] 02/07/2019 08:47:00 AM EDT [facility] System Name Value Range Interpretation Description Data Sup porting Code Source(s) Document(s ) Appearance of CLEAR Normal (applies Urine [facility] Urine to non-numeric Appearance Health results) System Color YELLOW Normal (applies Color [facility] to non-numeric Health results) System Specific gravity > 1.030 Normal (applies Urine Specific [facility] of Urine to non-numeric [facility] results) System pH.. 5.5 Normal (applies pH.. [facility] {pH_units} to non-numeric Health results) System Protein NEGATIVE Normal (applies Protein [facility] [Mass/volume] in to non-numeric Health Serum or Plasma results) System Glucose,UA NEGATIVE Normal (applies Glucose, UA [facility] to non-numeric Health results) System BilirubinUrine NEGATIVE Normal (applies Bilirubin [facility] to non-numeric Urine Health results) System Urobilinogen 0.2 mg/dL Normal (applies Urobilinogen [facility] [Mass/volume] in to non-numeric UA Health Urine results) System Ketones NEGATIVE Normal (applies Ketones UA [facility] [Mass/volume] in to non-numeric Health Urine results) System Nitrate+Nitrite NEGATIVE Normal (applies Nitrite [facility] [Mass/volume] in to non-numeric Health Unspecified results) System specimen Leukocyte NEGATIVE Normal (applies Leukocyte [facility] esterase to non-numeric Esterase Health [Units/volume] results) Concentration System in Urine RedBloodCells 1 {/HPF} Normal (applies Red Blood [facility] to non-numeric Cells Health results) System Leukocytes 2 {/HPF} Normal (applies White Blood [facility] [#/volume] in to non-numeric Cells Health Unspecified results) System specimen by Automated count Epithelial cells 15 {/HPF} Normal (applies Epithelial [facility] [Presence] in to non-numeric Cells Health Unspecified results) System specimen by Wet preparation Bacteria 1+ Abnormal Bacteria [facility] [Presence] in (applies to Health Unspecified non-numeric System specimen results) UrineBlood NEGATIVE Normal (applies Urine Blood [facility] to non-numeric Health results) System Calcium oxalate 5 {/HPF} Normal (applies Calcium [facility] crystals to non-numeric Oxalate Health [#/area] in results) Crystals System Urine sediment by Microscopy low power field ID Date Data Source [id number] 02/07/2019 08:47:00 AM EDDileep Cervantes alth System Name Value Range Interpretation Description Data Sup porting Code Source(s) Document(s ) Triglyceride 112 Normal (applies Triglycerides, [facility] [Mass/volume] mg/dl to non-numeric Serum Health in Serum or results) System Plasma Optimal = < 100 mg/dLBoderline High = 15 0 - 199 mg/dLHigh = 200 - 499 mg/dLVery High = > 500 mg/dL Cholesterol in HDL 48.0 mg/dL Normal (applies HDL Cholestero l, [facility] [Mass/volume] in to non-numeric Serum Health S ystem Serum or Plasma results) Cholesterol 197 mg/dl Normal (applies Cholesterol, Serum [facility] [Mass/volume] in to non-numeric Health S ystem Serum or Plasma results) <200 mg/dL = [id number] - 239 md/dL = Borderline>240 mg/dL = High Risk Cholesterol in VLDL 22.4 Normal (applies to VLDL, Serum [facility] [Mass/volume] in non-numeric Health Syst em Serum or Plasma results) Cholesterol in LDL 126.6 mg/dL Normal (applies to Low Densit y [facility] [Mass/volume] in non-numeric Lipoprotein, Health S ystem Serum or Plasma results) Calculated OPTIMAL: LESS THAN 100 mg/dLNEAR OPTIMAL : 100 - 129 mg/dLBODERLINE HIGH: 130 - 150 mg/dL CHDRisk 4.10 Normal (applies to non-numeric CHD Risk [facility] results) ID Date Data Source [id number] 02/07/2019 08:47:00 AM EDDileep [facility] al[facility] System Name Value Range Interpretation Description Data Sup porting Code Source(s) Document(s ) Sodium 140 Normal (applies Sodium, Serum [facility] [Moles/volume] in mmol/L to non-numeric Health Serum or Plasma results) System Potassium 4.2 Normal (applies Potassium, [facility] [Mass/volume] in mmol/L to non-numeric Serum Health Serum or Plasma results) System TotalProtein 6.8 Normal (applies Total Protein [facility] mg/dl to non-numeric Health results) System Carbon dioxide, 29.0 Normal (applies CO2, Serum [facility] total mmol/L to non-numeric Health [Moles/volume] in results) System Serum or Plasma Chloride 103 Normal (applies Chloride, [facility] [Moles/volume] in mmol/L to non-numeric Serum Health Serum or Plasma results) System Urea nitrogen 26 Above high Blood Urea [facility] [Mass/volume] in mg/dl normal Nitrogen, Health Serum or Plasma Serum System Glucose 81 Normal (applies Glucose, [facility] [Mass/volume] in mg/dL to non-numeric Serum Health Serum or Plasma results) System Alkaline 68 Normal (applies Alkaline [facility] phosphatase {IU/L} to non-numeric Phosphatase, Health isoenzymes results) Serum System [Enzymatic activity/volume] in Serum or Plasma by Heat stability Creatinine 0.80 Normal (applies Creatinine, [facility] [Mass/volume] in mg/dl to non-numeric Serum Health Serum or Plasma results) System Bilirubin.total 0.3 Normal (applies Bilirubin, [facility] [Mass/volume] in mg/dl to non-numeric Serum Total Health Serum or Plasma results) System DirectBilirubin 0.1 Normal (applies Direct [facility] mg/dl to non-numeric Bilirubin Health results) System Aspartate 37 Normal (applies Aspartate [facility] aminotransferase {IU/L} to non-numeric Transaminase, Heal th [Enzymatic results) Serum System activity/volume] in Serum or Plasma by With P-5'-P Albumin 4.2 Normal (applies Albumin, [facility] [Mass/volume] in {gm/dl} to non-numeric Serum Health Serum or Plasma results) System Alanine 50 Normal (applies Alanine [facility] aminotransferase {IU/L} to non-numeric Aminotransfer Heal th [Enzymatic results) ase, Serum System activity/volume] in Serum or Plasma I.Phosphorus 4.8 Above high I. Phosphorus [facility] mg/dl normal [facility] A/GRatio 1.62 Normal (applies A/G Ratio [facility] to non-numeric Health results) System Calcium 9.8 Normal (applies Calcium, [facility] [Mass/volume] in mg/dl to non-numeric Total Serum Health Serum or Plasma results) System Urate 3.7 Normal (applies Uric Acid, [facility] [Mass/volume] in mg/dl to non-numeric Serum Health Serum or Plasma results) System Anion gap in Serum 8.00 Normal (applies Anion Gap Jose Antonio bud or Plasma mmol/L to non-numeric Health results) System Glomerular 77.53 Normal (applies GFR [facility] filtration to non-numeric Health rate/1.73 sq results) System M.predicted [Volume Rate/Area] in Serum or Plasma by Creatinine-based formula (CKD-EPI) eGFR will provide clinicians with a more accurate indicator of renal function then the serum creatinine. The eGFR is automa tically calculated from an empiric formula (endorsed by the National [employer] ion) which incorporates age, sex, and race.Clinicians may notice surprisingly low GFR's with serum creatinine valueswithin normal range- particularly in elderly wo men (with low muscle mass).In the hospital setting, the eGFR should add an element of safety in drug dosing, in assessing the risk of IV contrast administration, and in assessing vascular risk.The NKF staging system is as follows:Normal: eGFR >90 with no kidney markersStage 1: eGFR >90 with kidney markers*Stage 2: eGFR 60- 89Stage 3: eGFR 30-59Stage 4: eGFR 15-29Stage 5: eGFR <15 (usually requir ing dialysis)*Markers include: Proteinuria, Hematuria, abnormal imaging-studies, or other blood or urine test abnormalities ID Date Data Source [id number] 02/17/2019 11:12:00 AM EDT [facility] Name Value Range Interpretation Description Data Sup porting Code Source(s) Document(s ) Quantif NegativeNegative Normal (applies Quantiferon-T [facility] jacqueline-TB test result. M. to non-numeric B Gold. Health Gold. tuberculosis results) System complex infectionunlikely. NIL 0.02 {IU/mL} Normal (applies NIL [facility] to non-numeric Health results) System TB2-NIL 0.00 {IU/mL} Normal (applies TB2-NIL [facility] to non-numeric Health results) System The Nil tube value reflects the backgrou nd interferongamma immune response of the patient's blood sample.This value has be en subtracted from the patient'sdisplayed TB and Mitogen results.Lower than expected results with the Mitogen tube prevent false-negative Quantiferon readings byde tecting a patient with a potential immunesuppressive condition and/or subop timal pre-analyticalspecimen handling.The TB1 Antigen tube is coated with theM. tuberc ulosis-specific antigens designed to elicitresponses from TB antigen primed C D4+ helperT-lymphocytes.The TB2 Antigen tube is coated with theM. tuberculosis-specif ic antigens designed to elicitresponses from TB antigen primed CD4+ helper and CD8+cy totoxic T-lymphocytes.For additional information, please refer [email or web address](This link is being provided for informational/educ ational purposes only.)Test Performed at:[facility], [place], [place] [address]Giancarlo Reno M.D. TB1-NIL < 0.00 Normal (applies to TB1-NIL [facility] non-numeric results) System Mitogen-NIL 8.14 {IU/mL} Normal (applies to Mitogen-NIL [facility] non-numeric results) System ID Date Data Source [id number] 02/27/2019 08:40:00 PM EDT [facility] Name Value Range Interpretation Description Data Sup porting Code Source(s) Document(s ) Amphetamine Negative Normal (applies Amphetamine [facility] [Mass/volume] to non-numeric Level, Urine Health in Urine results) System Cut-off = 1000 ng/mL Barbiturates Negative Normal (applies to Barbiturate [facility] [Mass/volume] in non-numeric Screen, Urine Health System Urine by Screen results) method Cut-off = 200 ng/mL Benzodiazepines Negative Normal (applies Benzodiazepines, [facility] [Mass/volume] in to non-numeric Urine Health S ystem Urine results) Cut-off = 200 ng/mL Cocaine Positive Abnormal (applies Cocaine [facility] metabolites.other to non-numeric [facility] [Mass/volume] in Urine results) Screen, Urine Cut-off = 300 ng/mL Methadone Positive Abnormal (applies Methadone Level, [facility] [Mass/volume] in to non-numeric Urine System Urine results) Cut-off = 300 ng/mL [id number],Urine Positive Abnormal (applies to Opiate 300, [facility] non-numeric results) Urine System Cut-off = 300 ng/mL Cannabinoid(THC) Negative Normal (applies to Cannabinoid (THC) [facility] non-numeric System results) Cutt-off = 50These results are for medic al treatment only. The positive findings are unconfirmed. Request confirmatory/quanti tative test if needed. Phencyclidine Negative Normal (applies Phencyclidine, Urine [facility] [Mass/volume] in to [facility] Urine results) Cut-off = 25 ng/mL ID Date Data Source [id number] 04/28/2020 07:34:00 PM EDT [facility] Name Value Range Interpretation Code Description Data Nica rce(s) Supporting Document(s ) COVID-19.. [facility] This lab was ordered by [facility] and reported by [facility], [place]. ID Date Data Source [id number] 04/26/2020 02:57:00 AM EDT [facility] Name Value Range Interpretation Code Description Data Nica rce(s) Supporting Document(s ) COVID-19.. [facility] This lab was ordered by [facility] and reported by [facility] [place]. ID Date Data Source [id number] 04/26/2020 02:07:00 AM EDT [facility] HISTORY: Pt injected IV drugs in neck no w has swelling at thebase of the L part of the neck;COMPARISON: None.TECHNIQUE: [facility] CT axial images are obtained from the base ofskull through the thoracic inletw ith 100 ml of Omnipaque 300intravenous contrast. Multiplanar reconstruction. A radiationdose optimizationtechnique was used for this scan.# of images incl. paperwor k: [id number]:AERODIGESTIVE: Thenasopharynx, oropharynx, oral cavity,hypopharynx, and larynx have a normal appearance. No mucosalbased lesionsor masses. The tongu e base and retromolar trigoneshave a normal appearance. The airway is patent without masseffect upon it. No abnormal enhancement is seen.LYMPH NODES: No abnormal cervica llymphadenopathy.NECK GLANDS: Bilateral parotid and submandibular glands have an ormal appearance. Thethyroid gland is normal in size withoutsignificant nodules.SOFT TISSUES: At the base of the left neck,there issupraclavicular deep soft tissue indur ation andcontusion/phlegmon which is ill-defined measuringapproximately1.5 cm , best seen on series 3 image 112. There is mildthickening of the left platysma musc le atthis level. There issubcutaneous fat stranding and edema. No walled off fluid collections to suggest abscess.Left internal jugular vein ispatent.SKULL BASE: Visual ized paranasal sinuses are clear. Leftmastoidbone appears to be under deve loped an under aerated. Aeratedportion of the left mastoid bone isopacified. Visualize d rightmastoid air cells are clear.VASCULAR: Carotid vasculature shows nosignificanta therosclerotic changes. Vertebral arteries are unremarkable.LUNG APICES: Visualized lungapices demonstrates no masses orsuspicious nodules.BONES: No destructi ve lytic or blastic osseouslesions. Mildcervical spine degenerative changes. IMPRESSION:1. Base of leftneck/supraclavicular superficial and deep softtissue induration and and ill-defined 1.5 cm areaofphlegmon/contus ion. Subjacent mild thickening of the leftplatysma muscle and subcutaneous moni ma and fatstranding.Depending on date of injection in this region, will determine whether findings represent contusionversus an early infectiousprocess. Correlate clini nicolás.2. Left internal jugular vein is patent.3. Noneck masses or abnormal cerv ical lymphadenopathy.Individualized dose optimization techniques were used forthi sCT. at 0250 Reportedand signed by: Joanna Artis MDEncity of hope, atlantaion Physician ServicesSHCR DR BEKAH ARTIS [phone] Signed:Joanna Artis MD2020/04/26 at 2:49 [phone], Service support [phone], [phone] Name Value Range Interpretation Code Description Data Nica rce(s) Supporting Document(s ) Procedure Vital Signs ID Date Data Source UNK Name Value Range Interpretation Code Description Data Source(s) Body surface area 1.8 m2 1.8 m2 [facility] Derived from [facility] m formula Body mass index 0.6 kg/m2 0.6 kg/m2 [facility] (BMI) [Ratio] [facility] Body weight 71.66 kg 71.66 kg [facility] Body height 167.64 cm 167.64 cm [facility] Body temperature 98.4 [degF] 0 - 200 Normal (applies to 98.4 [degF ] [facility] non-numeric results) [facility] Body temperature 36.8 Concepcion 0 - 99.9 Normal (applies to 36.8 Concepcion [facility] non-numeric results) [facility] Diastolic blood 75 mm[Hg] 0 - 999 Normal (applies to 75 mm[Hg] [facility] pressure non-numeric results) [facility] Systolic blood 139 mm[Hg] 0 - 999 Normal (applies to 139 mm[Hg] [facility] pressure non-numeric results) [facility] Oxygen saturation 100 % 0 - 999 Normal (applies to 100 % [facility] in Arterial blood non-numeric results) Health System by Pulse oximetry Respiratory rate 19 0 - 999 Above high normal [facility] Heart rate 98 0 - 999 Normal (applies to 98 [facility] non-numeric results) [facility] Body mass index 26.1 kg/m2 26.1 kg/m2 [facility] (BMI) [Ratio] [facility] Systolic blood 115 mm[Hg] 0 - 999 Normal (applies to 115 mm[Hg] [facility] pressure non-numeric results) [facility] Oxygen saturation 100 % 0 - 999 Normal (applies to 100 % [facility] in Arterial blood non-numeric results) Health System by Pulse oximetry Respiratory rate 17 0 - 999 Normal (applies to 17 [facility] non-numeric results) [facility] Heart rate 54 0 - 999 Below low normal 54 [facility] Body temperature 98.3 [degF] 0 - 200 Normal (applies to 98.3 [degF ] [facility] non-numeric results) [facility] Body temperature 36.8 Concepcion 0 - 99.9 Normal (applies to 36.8 Concepcion [facility] non-numeric results) [facility] Diastolic blood 58 mm[Hg] 0 - 999 Below low normal 58 mm[Hg] [facility] Body surface area 1.8 m2 1.8 m2 [facility] Derived from [facility] m formula Body weight 73.48 kg 73.48 kg [facility] Body height 167.64 cm 167.64 cm [facility] Body temperature 36.2 Concepcion 0 - 99.9 Below low normal 36.2 Concepcion Mo [facility] Body temperature 97.2 [degF] 0 - 200 Normal (applies to 97.2 [degF ] [facility] non-numeric results) [facility] Diastolic blood 72 mm[Hg] 0 - 999 Normal (applies to 72 mm[Hg] [facility] non-[facility] results) [facility] Systolic blood 124 mm[Hg] 0 - 999 Normal (applies to 124 mm[Hg] [facility] non-[facility] results) [facility] Oxygen saturation 100 % 0 - 999 Normal (applies to 100 % [facility] in Arterial blood non-numeric results) [facility] by Pulse oximetry Respiratory rate 17 0 - 999 Normal (applies to 17 [facility] non-numeric results) [facility] Heart rate 64 0 - 999 Normal (applies to 64 [facility] non-numeric results) [facility] Body surface area 1.[address] [facility] Derived from Health Syste m formula Body mass index 26.7 kg/m2 26.7 kg/m2 [facility] e (BMI) [Ratio] [facility] Syst em Body weight 73.02 kg 73.02 kg [facility] Body height 165.1 cm 165.1 cm [facility] Patient Treatment Plan of Care Planned Activity Planned Date Details Description Data Source (s) Sulfamethoxazole 800 MG / 04/30/2020 [facility] Trimethoprim 160 MG Oral 08:02:39 AM EDT System Tablet 24 HR Nicotine 0.583 MG/HR 04/30/2020 [facility] Transdermal Patch 08:01:19 AM EDT System Albuterol (Eqv-ProAir HFA) 04/30/2020 [facility] SmartSignal 90 mcg/inh inhalation 08:00:26 AM EDT Sys tem aerosol Albuterol 03/05/2019 [facility] 02:28:53 PM EDT System Mupirocin 0.02 MG/MG 03/05/2019 [facility] Topical Ointment 02:27:10 PM EDT System Albuterol 0.833 MG/ML / 03/05/2019 [facility] Ipratropium [place] 0.167 02:26:13 PM EDT System MG/ML Inhalant Solution Acetaminophen 325 MG Oral 03/05/2019 [facility] Tablet 02:25:54 PM EDT System
[2020-05-13 18:07] VITALS: BMI 25.8
--- NOTE | 2020-05-13 20:36 | HP ---
COWS - Scale Resting Pulse: 0= PA 80 or Below Sweatin= Chills/Flushing Restless Observation: 5= Unable to Sit Still Pupil Size: 0= Normal to Room Light Bone or Joint Aches: 4=Acute Joint/Muscle Pain Runny Nose/ Eye Tearin= None GI Upset > 30mins: 0= None Tremor Observation: 1= Tremor [place], Not Seen Yawning Observation: 1= 1-2x During Session Anxiety or Irritability: 2=Irritable/Anxious Goose Flesh Skin: 0=Smooth Skin COWS Score: 14 CIWA Score - Admission Criteria OASAS Guidelines: Admission for Medically Managed Detox: Requires at least one of the followin. CIWA greater than 12 2. Seizures within the past 24 hours 3. Delirium tremens within the past 24 hours 4. Hallucinations within the past 24 hours 5. Acute intervention needed for co occurring medical disorder 6. Acute intervention needed for co occurring psychiatric disorder 7. Severe withdrawal that cannot be handled at a lower level of care (continued vomiting, continued diarrhea, abnormal vital signs) requiring intravenous medication and/or fluids 8. Admitting History and Physical - Past Medical History ...LMP: 07/10/17 - Smoking History Smoking history: Current every day smoker Have you smoked in the past 12 months: Yes Aproximately how many cigarettes per day: 20 - Alcohol/Substance Use Hx Alcohol Use: Yes (4 JACQUELYN/TWISTED) Admission [facility] Chief Complaint: C/O WITHDRAWAL SX'S Allergies/Adverse Reactions: Allergies Allergy/AdvReac Type Severity Reaction Status Date / Time Fish Containing Products Allergy Severe Itching Verified 07/20/17 12:03 No Known Drug Allergies Allergy Verified 07/20/17 16:10 History of Present Illness: HERE FOR HEROIN DETOX. CLIENT IS SELF REFERRED. KNOWN TO PROGRAM LAST HERE 2016. CLIENT REPORTS DAILY USE OF HEROIN AND COCAINE. PRESENTS WITH C/O WITHDRAWAL SX'S SEEKING DETOX. LAST USE EARLY THIS MORNING. UTOX +MTD. CLIENT DENIES MMTP. STATES MUST BE MIXED WITH HEROIN. +IVDU, DENIES HX/O DRUG OVERDOSE. DENIES ANY SIGNIFICANT PERIOD OF CLEAN TIME IN THE PAST 12 MONTHS. LIVES ALONE, UNEMPLOYED, DENIES LEGALS Exam Limitations: No Limitations - Ebola screening Have you traveled outside of the country in the last 21 days: No Have you had contact with anyone from an Ebola affected area: No Have you been sick,other than usual withdrawal symptoms: No Do you have a fever: No - Review of Systems Constitutional: Chills, Night Sweats, Changes in sleep EENT: reports: Blurred Vision (CORRECTIVE LENSES) Respiratory: reports: Shortness of Breath (INTERMITTENT 2/2 HX/O ASTHMA) Cardiac: reports: No Symptoms Reported GI: reports: No Symptoms Reported : reports: No Symptoms Reported Musculoskeletal: reports: Back Pain Integumentary: reports: No Symptoms Reported, 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 resolving abcess wound s/p i& d to right side of neck) Neuro: reports: Headache (MIGRAINES) Endocrine: reports: No Symptoms Reported Hematology: reports: No Symptoms Reported Psychiatric: reports: Orientated x3, Anxious, Depressed (DENIES SI/HI/AVH) Other Systems: Reviewed and Negative Patient History - Patient Medical History Hx Anemia: No Hx Asthma: Yes (MDI) Hx Chronic Obstructive Pulmonary Disease (COPD): Yes Hx Cancer: No Hx Cardiac Disorders: No Hx Congestive Heart Failure: No Hx Hypertension: No Hx Hypercholesterolemia: No Hx Pacemaker: No HX Cerebrovascular Accident: No Hx Seizures: No Hx Dementia: No Hx Diabetes: No Hx Gastrointestinal Disorders: No Hx Liver Disease: No Hx Genitourinary Disorders: No Hx Sexually Transmitted Disorders: No Hx Renal Disease (ESRD): No Hx Thyroid Disease: No Hx Human Immunodeficiency Virus (HIV): No (NEGATIVE HX) Hx Hepatitis C: No Hx Depression: Yes (NON COMPLAINT) Hx Suicide Attempt: No Hx Bipolar Disorder: No Hx Schizophrenia: No Other Medical History: DENIES - Patient Surgical History Past Surgical History: No Hx Neurologic Surgery: No Hx Cataract Extraction: No Hx Cardiac Surgery: No Hx Lung Surgery: No Hx Breast Surgery: No Hx Breast Biopsy: No Hx Abdominal Surgery: No Hx Appendectomy: No Hx Cholecystectomy: No Hx Genitourinary Surgery: No Hx Section: No Hx Orthopedic Surgery: No Anesthesia Reaction: No - PPD History Previous Implant?: Yes Documented Results: Negative w/proof Implanted On Prior R Admission?: No Date: 03/28/14 Results: 0 mm PPD to be Administered?: Yes - Reproductive History Patient is a Female of Child Bearing Age (11 -55 yrs old): Yes LMP comment: 8 MONTHS AGO Patient : [place] [facility] [place] - Smoking Cessation Smoking history: Current every day smoker Have you smoked in the past 12 months: Yes Aproximately how many cigarettes per day: 10 Cigars Per Day: 0 Hx Chewing Tobacco Use: No Initiated information on smoking cessation: Yes 'Breaking Loose' booklet given: 05/13/20 - Substance & Tx. History Hx Alcohol Use: No Hx Substance Use: Yes Substance Use Type: Cocaine, Heroin Hx Substance Use Treatment: Yes ([facility]) - Substances abused Heroin Substance route: Injection Frequency: Daily Amount used: 6 BAGS Age of first use: 31 Date of last use: 05/13/20 Crack Substance route: Smoking Frequency: Daily Amount used: 50 DOLLARS Age of first use: 27 Date of last use: 05/13/20 Admission Physical Exam S - Vital Signs Vital Signs: Vital Signs - 24 hr 05/13/20 18:04 Temperature 97.8 F Pulse Rate 63 Respiratory 18 Rate Blood Pressure 109/62 - Physical General Appearance: Yes: Mild Distress, Anxious, Other (flushed) HEENTM: Yes: EOMI, Normocephalic, Normal Voice, BERRY, Pharynx Normal, Other (missing teeth) Respiratory: Yes: Chest Non-Tender, Lungs Clear, Normal Breath Sounds, No Respiratory Distress, No Accessory Muscle Use Neck: Yes: No masses,lesions,Nodules, Supple, Trachea in good position Breast: Yes: Breasts Symetrical Cardiology: Yes: Regular Rhythm, Regular Rate, S1, S2 Abdominal: Yes: Non Tender, Soft, Increased Bowel Sounds Genitourinary: Yes: Within Normal Limits Back: Yes: Normal Inspection Musculoskeletal: Yes: full range of Motion, Gait Steady Extremities: Yes: Normal Capillary Refill, Normal Range of Motion, Non-Tender, Tremors (felt) Neurological: Yes: Fully Oriented, Alert, Motor Strength 5/5, Depressed Affect Integumentary: Yes: Dry, Warm Lymphatic: Yes: Within Normal Limits - Diagnostic (1) Nicotine dependence Current Visit: Yes Status: Chronic Qualifiers: Nicotine product type: cigarettes Substance use status: uncomplicated Qualified Code(s): F17.210 - Nicotine dependence, cigarettes, uncomplicated (2) Substance induced mood disorder Current Visit: Yes Status: Chronic (3) Substance-induced sleep disorder Current Visit: Yes Status: Chronic (4) Asthma Current Visit: Yes Status: Chronic Qualifiers: Asthma severity: mild Asthma persistence: unspecified Asthma complication type: uncomplicated Qualified Code(s): J45.909 - Unspecified asthma, uncomplicated (5) COPD (chronic obstructive pulmonary disease) Current Visit: Yes Status: Chronic (6) Cocaine dependence Current Visit: Yes Status: Chronic Qualifiers: Substance use status: uncomplicated Qualified Code(s): F14.20 - Cocaine dependence, uncomplicated (7) Opioid dependence with withdrawal Current Visit: Yes Status: Acute (8) Non compliance w medication regimen Current Visit: Yes Status: Chronic Cleared for Admission [facility] - Detox or Rehab [facility] Level of Care: Medically Managed Detox Regimen/Protocol: Methadone Claeared for Rehab Admission: No Breathalyzer - Breathalyzer Breathalyzer: 0 Urine Drug Screen - Test Device Lot number: [id number] Expiration date: 11/07/21 - Control Is test valid?: Yes - Results Drug screen NEGATIVE: No Urine drug screen results: NEHA-Cocaine, FEN-Fentanyl, MOP-Opiates, MTD-Methadone Inpatient Rehab Admission - Rehab Decision to Admit Inpatient rehab admission?: No
[2020-05-13] MEDS ORDERED: MAGNESIUM CITRATE 300 ML BOTTLE PO PRN (20:41)
[2020-05-13] MEDS ORDERED: hydrOXYzine PAMOATE 25 MG CAPSULE (FP) PO PRN (20:41)
[2020-05-13] MEDS ORDERED: guaiFENesin 200 MG/10 ML 10 ML UNIT-DOSE CUPS PO PRN (20:41)
[2020-05-13] MEDS ORDERED: NICOTINE POLACRILEX 2 MG GUM BUC PRN (20:41)
[2020-05-13] MEDS ORDERED: MAGNESIUM HYDROX 2400MG/30ML ORAL SUSPENSION 30 ML CUP PO PRN (20:41)
[2020-05-13] MEDS ORDERED: ONDANSETRON *ODT* 4 MG TABLET SL PRN (20:41)
[2020-05-13] MEDS ORDERED: MAG HYDROX/AL HYDROX/SIMETH 30 ML UNIT-DOSE CUP PO PRN (20:41)
[2020-05-13] MEDS ORDERED: P-EPHED 60MG/TRIPROLIDI 2.5MG TABLET PO PRN (20:41)
[2020-05-13] MEDS ORDERED: ACETAMINOPHEN 325 MG TABLET (FP) PO PRN ×2 (20:41)
[2020-05-13] MEDS ORDERED: DICYCLOMINE HCL 10 MG CAPSULE PO PRN (20:41)
[2020-05-13] MEDS ORDERED: IBUPROFEN 400 MG TABLET (FP) PO PRN (20:41)
[2020-05-13] MEDS ORDERED: MENTHOL/PHENOL 1 EACH UD MM PRN (20:41)
[2020-05-13] MEDS ORDERED: BISMUTH SUBSALICYLATE 524 MG/30 ML UD PO PRN (20:41)
[2020-05-13] MEDS ORDERED: MELATONIN 5 MG TABLETS PO SCH (22:00)
[2020-05-13] MEDS ORDERED: cloNIDine HCL 0.1 MG TABLET PO PRN (22:49)
[2020-05-13] MEDS ORDERED: NALOXONE HCL 0.4 MG/ML VIAL IM PRN (22:49)
--- OUTSIDE RECORDS SUMMARY | 2020-05-13 23:33 | XMS ---
:1975 [facility] Care Team Providers Name Role Phone Mahdi POPPY Elliott Unavailable Unavailable Mahdi POPPY Elliott Unavailable Unavailable Mahdi POPPY Elliott Unavailable Unavailable Mahdi POPPY Elliott Unavailable Unavailable Mahdi POPPY Elliott Unavailable Unavailable Mahdi POPPY Elliott Unavailable Unavailable Mahdi POPPY Elliott Unavailable Unavailable Giacomo Serna Unavailable Unavailable Sabrina Appiah Unavailable Unavailable Landon Irvin Unavailable Unavailable [facility], MHAW9 Unavailable Unavailable [...] is protected by Article 27-F of the [facility] Public Health law. If you continue you may haveaccess to information: Regarding HIV / AIDS; Provided by facilities licensed or operated by the [facility] Office of Mental Health; or Provided by the [facility] Office for People With Developmental Disabilities. If such information is present, then the following [facility] mandated warning applies: This information has [...] Gender Status Status Unknown Male Diagnosis 04/13/2014 [facility] ( 12:00:00 AM [facility] EDT Center) Encounters Encounter Providers Location Date Indications Data Source(s ) Outpatient Attender: MHAW9 05/06/2020 I ([facility] 05:44:[address] [facility] EDT [facility]) Patient admitted. Outpatient Attender: Danyel Reyes-SURG CL 05/01/2020 03:08:53 [facility] - Annalisa Mallory Nnaemeka PM EDT - 05/02/2020 Hospi joss 11:59:00 PM EDT Patient discharged. Inpatient Attender: Benjamin Caceres 04/28/2020 L03.90 S - Marcelina mensah OranAttender: Suraj 05:22:00 PM EDT Cellulitis a nd Mohamud Heard: Doctor - 04/30/2020 abscess Hospital OtherAdmitter: Benjamin 12:36:00 PM EDT Jame L03.90 Cellulitis and abscess Patient discharged. Inpatient Attender: Landon Caceres 04/25/2020 L03.90 Cellulitis [facility] - Annalisa Lindattender: Codie 07:05:00 PM EDT - Mohamud Valdivia: 04/27/2020 Hospit al OtherAdmitter: 11:30:00 AM EDT Landon Irvin L03.90 Cellulitis Patient discharged. Outpatient Attender: MHAW9 [facility] 03/02/2020 12:53:54 PM [facility] ([facility] EDT [facility]) Patient admitted. Unlisted evaluation 02/15/2020 03:35:00 NETSMART (The Guidance and management EDT [facility]) service Outpatient Attender: MHAW9 10/20/2019 07:05:42 [facility] ([facility] EDT [facility]) Patient admitted. Outpatient 05/03/2019 02:37:32 PM EDT [facility] ([facility]) Patient admitted. Outpatient 05/03/2019 02:37:29 PM EDT [facility] ([facility]) Patient admitted. Outpatient 05/03/2019 02:37:23 PM EDT [facility] ([facility]) Patient admitted. Outpatient 05/03/2019 02:37:20 PM EDT [facility] ([facility]) Patient admitted. Outpatient 05/03/2019 02:30:15 PM EDT [facility] ([facility]) Patient admitted. Outpatient 05/03/2019 02:30:11 PM EDT [facility] ([facility]) Patient admitted. Outpatient Attender: Sabrina Appiah 5T-WOUND 04/04/2019 12:36:01 PM MICHAEL Mallory EDT - 04/07/2019 [facility] 03:48:00 PM EDT Patient discharged. Outpatient Attender: Mahdi Reyes-WOUND 03/30/2019 09:15:10 AM MICHAEL Elliott MD EDT - 03/31/2019 Hospita l 11:59:00 PM EDT Patient discharged. Outpatient Attender: Mahdi Reyes-WOUND 03/23/2019 03:43:14 PM MICHAEL Elliott MD EDT - 03/24/2019 Hospita l 11:59:00 PM EDT Patient discharged. Unlisted evaluation 03/21/2019 JASMIN ART (The and management 03:30:00 PM EDT - [email or web address] of service 05/17/2019 [place]) 01:00:00 PM EDT Outpatient Attender: Mahdi Reyes-WOUND 03/17/2019 MICHAEL - Marcelina Elliott MD 08:19:11 AM EDT - Hospit al 03/17/2019 11:59:00 PM EDT Patient discharged. Unlisted evaluation 03/10/2019 NETS ART (The and management 01:00:00 PM EDT - [facility] 03/21/2019 [place]) 03:30:00 PM EDT Outpatient Attender: 5T-WOUND 03/07/2019 S - Marcelina nt Mohamud Elliott MD 01:09:47 PM EDT - Hospit al 03/10/2019 11:59:00 PM EDT Patient discharged. Inpatient Attender: Giacomo Eric-5T 02/27/2019 L03.115 [facility]ora 06:55:00 PM EDT Cellu litis of Mohamud DysonAdmitter: - 03/05/2019 leg, right Hospital [facility] 04:35:00 PM EDT L03.115 Cellulitis of leg, right Patient discharged. Medications Medication Brand Start Product Dose Route Administrative Pharmacy at Indications Reaction Description Data Name Date Form Instructions Instructions Source(s) Sulfamethox sulfam [id number] active Sulfa methoxa [facility] azole 800 ethoxa 2019 {tab( zole-Trimeth [facility] MG / zole-t 08:02: s)} oprim DS System Trimethopri rimeth 39 AM m 160 MG oprim EDT Oral Tablet 800 sulfamethox mg-160 azole-trime mg thoprim 800 oral mg-160 mg tablet oral tablet 24 HR nicoti [id number] active Nicoderm C- Q [facility] Nicotine ne 14 2019 {PATC [facility] 0.583 MG/HR mg/24 08:01: H} Syste m Transdermal hr 19 AM Patch transd EDT nicotine 14 ermal mg/24 hr film, transdermal extend film, ed extended releas release e Albuterol 620107 H98612 active Albuter ol [facility] (Eqv-ProAir 05856 2019 {puff (Eqv-ProAir Health HFA) 90 08:00: (s)} HFA) System mcg/inh 26 AM inhalation EDT aerosol Albuterol Ventolin 03/05/2019 1 [id number] completed Ventolin HFA; 1 inhaled 2 times a day MDD:UP TO 6 TIMES/DAY PRN Ordered: 05-Mar-2019 Start: 05-Mar-20 End: 03-Apr-2019 [facility] Ventolin HFA 02:28:53 PM Quantity: 1 Vineet Naylor Status: No Longer Active Health HFA EDT Refills: 0 System Mupirocin mupirocin 03/05/2019 1 {ana} [id number] completed Mupirocin [facility] 0.02 MG/MG 2% topical 02:27:10 PM Health Topical ointment EDT System Ointment mupirocin 2% topical ointment Albuterol 0.833 MG/ML ipratropium-albuterol 03/05/2019 1 [id number] completed ipratropium-albuterol 0.5 mg-2.5 mg/3 mLinhalation solution; 1 inhaled 2 times a day Ordered: 05-Mar-2019 Start: 05-Mar-2019 End: 03-Apr-2019 [facility] / Ipratropium Kenvil 0.5 mg-2.5 mg/3 02:26:13 PM Quantity: 1 DaydayAnand mckinneyzah Status: No Longer Active Health 0.167 MG/ML Inhalant mLinhalation solution EDT Refills: 0 System Solution ipratropium-albuterol 0.5 mg-2.5 mg/3 mLinhalation solution Acetaminophen acetaminophen 03/05/2019 2 A72029 completed Acetaminophen [facility] 325 MG Oral 325 mg oral 02:25:54 PM {tab(s)} Health Tablet tablet EDT System acetaminophen 325 mg oral tablet Insurance Providers Payer name Policy type / Policy ID Covered Covered green party's Policy Plan Coverage type green party ID relationship to Zacarias Information zacarias [facility]ALTH [id number] CARE [facility] Medicaid Medicaid [id number] 1 [id number] Medicaid Medicaid [id number] 1 [id number] [facility] Commercial [id number] Medicaid E Medicaid [id number] 1 [id number] E [facility] MEDICAID [id number] [facility] [place] [id number] SP [id number] [facility] MEDICAID [id number] [facility] [id number] self [id number] [facility]/[place] Commercial [id number] Ess Plan 1&2 MVP/HHP O [id number] Problems, Conditions, and Diagnoses Code Display Name Description Problem Type Effective Data Sour ce(s) Dates L03.221 Cellulitis and Cellulitis and 31308-3 05/02/2020 [facility] abscess of neck abscess of neck 12:00:00 AM [facility] System EDT L02.91 Phlegmon Phlegmon 38684-4 04/28/2020 [facility] 12:00:00 AM Health System EDT L03.90 Cellulitis and Cellulitis and 13781-3 04/28/2020 [facility] abscess abscess 12:00:00 AM Health System EDT R22.1 Neck swelling Neck swelling 21755-1 04/26/2020 [facility] 12:00:00 AM Health System EDT L03.90 Cellulitis Cellulitis 93276-7 04/26/2020 [facility] 12:00:00 AM Health System EDT [id number] Cocaine dependence Cocaine dependence Complaint 9 [facility]SMART (The 07:30:00 PM Guidance EDT [facility]) [id number] Alcohol dependence Alcohol dependence Complaint 9 [facility]SMART (The 07:30:00 PM Guidance EDT [facility]) [id number] Opioid dependence Opioid dependence Complaint 03/16/2019 [facility]SMART (The 07:10:00 PM Guidance EDT Center [facility]) L03.221 Cellulitis of neck Cellulitis and Diagnosis 05/02/2020 [facility] abscess of neck 03:20:00 PM [facility] [id number] Percutaneous Percutaneous Diagnosis [facility] 12:00:00 AM [place] posterior neck posterior neck EDT Hospit al subcutaneous subcutaneous tissue and fascia tissue and fascia using drainage using drainage device device F11.10 Opioid abuse, Uncomplicated Diagnosis 04/28/2020 [facility] - In unt uncomplicated opioid abuse 07:45:00 PM [facility] F17.200 Nicotine Nicotine Diagnosis 04/28/2020 [facility] dependence, dependence, 07:45:00 PM [place] unspecified, uncomplicated EDT Hospital uncomplicated L03.90 Cellulitis L03.90 Cellulitis Diagnosis 04/28/2020 [facility] and abscess and abscess 07:45:00 PM [facility] L02.91 Cutaneous abscess, Phlegmon Diagnosis 04/28/2020 [facility] unspecified 07:45:00 PM [facility] J44.9 Chronic Chronic Diagnosis 04/28/2020 [facility] obstructive obstructive 07:45:00 PM [place] pulmonary disease, pulmonary disease T [facility] unspecified L03.90 Cellulitis, Cellulitis and Diagnosis 04/28/2020 [facility] Marcelina nt unspecified abscess 07:45:00 PM [facility] GROWTH ON NECK GROWTH ON NECK Diagnosis 04/28/2020 [facility] 05:22:00 PM [facility] F19.90 Other psychoactive Other psychoactive Diagnosis 0 [facility] substance use, substance use, [facility] uncomplicated F11.20 Opioid dependence, Uncomplicated Diagnosis 04/26/2020 [facility] uncomplicated opioid dependence 03:31:00 AM [facility] R22.1 Localized Neck swelling Diagnosis 04/26/2020 [facility] swelling, mass and 03:31:00 AM [place] [facility] lump, neck T Hospital L03.90 Cellulitis L03.90 Cellulitis Diagnosis 04/26/2020 [facility] 03:31:00 AM [facility] SWELLING TO SWELLING TO Diagnosis 04/25/2020 [facility] NECK/SHOULDER NECK/SHOULDER 07:05:00 PM [facility] L03.115 Cellulitis of Cellulitis of Diagnosis 04/07/2019 [facility] unt right lower limb right lower limb 12:00:00 AM [facility] Surgeries/Procedures Procedure Description Date Indications Data Source(s) Tissue Exam 04/30/2020 10:00:30 [facility] AM EDT - 04/29/2020 03:40:00 PM EDT Culture, Wound 04/29/2020 04:12:21 [facility] PM EDT - 04/29/2020 03:00:00 PM EDT Source Description: c/a wound left side neck baseSpecimen Description: c/s wound left side neck base Electrocardiographic procedure 04/28/2020 09:13:[address] [facility] (procedure) EDT - 04/29/2020 System 04:31:06 AM EDT Computed tomography of soft 04/26/2020 02:07:[address] [facility] tissues of neck (procedure) EDT - 04/26/2020 System 02:07:00 AM EDT C-Reactive Protein Quantitative 04/25/2020 09:21:[address] [facility] EDT - 04/25/2020 System 11:13:00 PM EDT Sedimentation Rate, Erythrocyte 04/25/2020 09:21:[address] [facility] EDT - 04/25/2020 System 11:13:00 PM EDT Results ID Date Data Source [id number] 02/27/2019 08:40:00 PM EDT [facility] System Name Value Range Interpretation [...] } results) System ID Date Data Source [id number] 02/27/2019 08:40:00 PM EDT [facility] He alth [...] urine test abnormalities ID Date Data Source [id number] 02/27/2019 11:45:00 PM EDT Janie crisostomo System Name Value Range Interpretation Description Data Sup porting Code Source(s) Document(s ) Bacteria Micro Result Normal (applies Culture, Wound [facility] identified in to non-numeric Health Wound by results) System Culture XXX Staphylococcus Organism [facility] microorganism [facility] serotype System [Identifier] in Isolate by Agglutination ColonyCount MODERATE MRSA [place] Count Janie ISOLATED. The [facility] Vancomycin BEKAH System for this isolate [...] Health ty] System ID Date Data Source [id number] 02/28/2019 06:51:00 AM EDT [facility] He andressa [...] Health } System ID Date Data Source [id number] 02/28/2019 06:51:00 AM OLIMPIA crisostomo System Name [...] urine test abnormalities ID Date Data Source [id number] 03/01/2019 07:05:00 AM [place] crisostomo System Name Value Range [...] Health } System ID Date Data Source [id number] 03/01/2019 07:05:00 AM EDT [facility] He andressa [...] urine test abnormalities ID Date Data Source [id number] 03/01/2019 07:05:00 AM EDDileep crisostomo System Name Value Range Interpretation Description Data Sup porting Code Source(s) Document(s ) Vancomycin 13.7 Normal (applies Vancomycin [facility] [Mass/volume] ug/ml to non-numeric Level, [facility] in Serum or results) Plasma --trough Reference Jhocah84-59 ug/mL - Therapeuti c lkrhjgqhdaqbh16-44 ug/mL - Complicated Infections ID Date Data Source [id number] 03/02/2019 07:17:00 AM EDDileep Cervantes Percolate System Name Value Range Interpretation Description Data Sup porting Code Source(s) Document(s ) Vancomycin 11.8 Normal (applies Vancomycin [facility] [Mass/volume] ug/ml to non-numeric Level, [facility] in Serum or results) Plasma --trough Reference Earvfd46-30 ug/mL - Therapeuti c ggqfvzbgjdjyj89-37 ug/mL - Complicated Infections ID Date Data Source [id number] 03/02/2019 05:00:00 PM EDT Janie crisostomo System Name Value Range Interpretation Description Data Sup porting Code Source(s) Document(s ) TissueExam Results for case # Normal (applies Tissue Exam [facility] [id number] to non-numeric Health SURGICAL PATHOLOGY results) System REPORTCLINICAL INFORMATION: Abscess, right leg.PREOPERATIVE DIAGNOSIS: Same.POSTOPERATIVE DIAGNOSIS: Same.FINAL DIAGNOSIS: Skin and soft tissue, right leg, debridement:Gangre nous tissue with severe acute inflammation and abscess formation./cmGIU KHLOE HANLEY MDElectronically Signed By: GROSS DESCRIPTION: In formalin, labeled "abscess, right leg", the specimen consists of a 2.5 x 1.7 x 0.6 cm, regalado-brown, necrotic portion of tissue, which is sectioned and submitted representatively in one cassette.MV/cmPage 1 of 1Testing performed at [facility], [address] [place] [address]. ID Date Data Source [id number] 03/02/2019 05:12:00 PM EDT [facility] c/s abscess right leg Name Value Range Interpretation Description Data Sup porting Code Source(s) Document(s ) Bacteria Micro Result Normal (applies Culture, [facility] identified in to non-numeric Wound Health Wound by results) System Culture XXX Staphylococcus Organism [facility] microorganism [facility] serotype System [Identifier] in Isolate by Agglutination [place] Count MANY FOR [place] Count [facility] SENSITIVITY Health REFER TO System #[id number] Bacteria Micro Result Normal (applies Culture, [facility] identified in to non-numeric Wound Health Wound by results) System Culture ColonyCount MANY FOR [place] Count [facility] SENSITIVITY Health REFER TO System #[id number] XXX Staphylococcus Organism [facility] microorganism [facility] serotype System [Identifier] in Isolate by Agglutination ID Date Data Source [id number] 03/03/2019 06:20:00 AM EDT [facility] Name Value Range Interpretation Description Data Sup porting Code Source(s) Document(s ) Vancomycin 13.5 Normal (applies Vancomycin [facility] [Mass/volume] ug/ml to non-numeric Level, [facility] in Serum or results) Plasma --trough Reference Imhgnc97-97 ug/mL - Therapeuti c yzachuhlfzeoa36-17 ug/mL - Complicated Infections ID Date Data Source [id number] 03/03/2019 06:20:00 [facility] Name Value Range Interpretation Description [...] Health } System ID Date Data Source [id number] 03/03/2019 06:20:00 AM EDT [facility] He andressa [...] 8.00 mmol/L Normal (applies to Anion Gap [facility] Serum or Plasma non-numeric results) Sys tem ID Date Data Source [id number] 05/08/2020 02:01:01 AM EDT [facility] He alth System Name Value Range Interpretation Description Data Sup porting Code Source(s) Document(s ) Bacteria NO GROWTH Culture [facility] identified in Bacteria Blood Health Syst em Blood by Aerobe culture ID Date Data Source [id number] 05/08/2020 02:01:01 AM EDT [facility] He alth System Name Value Range Interpretation Description Data Sup porting Code Source(s) Document(s ) Bacteria NO GROWTH Culture [facility] identified in Bacteria Blood Health Syst em Blood by Aerobe culture ID Date Data Source [id number] 05/08/2020 02:01:01 AM EDT [facility] He alth [...] Health results) System ID Date Data Source [id number] 05/08/2020 02:01:01 AM EDT [facility] He alth [...] Health } System ID Date Data Source [id number] 05/08/2020 02:01:01 AM EDT [facility] He andressa [...] 10.00 mmol/L Normal (applies to Anion Gap [facility] Serum or Plasma non-numeric results) Sys tem ID Date Data Source [id number] 05/08/2020 02:01:01 AM EDT [facility] Name Value Range Interpretation Description Data Source(s ) Supporting Code Document(s ) PH* 7.441 Above high normal PH* [facility] {pH_units Health System } PCO2* 43.5 Normal (applies to PCO2* [facility] {mm_Hg} non-numeric Health System results) BaseExce 5.40 Above high normal Base Excess* [facility] e ss* {mEq/L} Health System HCO3* 29.6 Above high normal HCO3* [facility]/L [facility] Chloride 102 Normal (applies to Chloride, VB [facility] ,VB mmol/L non-numeric Health System results) Lactate. 0.7 Normal (applies to Lactate. [facility] mmol/L non-numeric Health System results) Glucose, 90 mg/dL Normal (applies to Glucose, VB [facility] VB non-numeric Health System results) Potassiu 4.0 Normal (applies to Potassium, VB [facility] m,VB mmol/L non-numeric Health System results) Sodium,V 139 Normal (applies to Sodium, VB [facility] B mmol/L non-numeric Health System results) IonizedC 1.18 Normal (applies to Ionized [facility] alcium,V mmol/L non-numeric Calcium, Health System B results) R0Vlzpgm 98.50 % Normal (applies to O2 Saturation* [facility] iore tion* non-numeric Health System results) ID Date Data Source [id number] 05/08/2020 02:01:01 AM EDT [facility] System Name Value Range Interpretation Description [...] nuc leic acids ID Date Data Source [id number] 05/08/2020 02:01:01 AM EDT [facility]th System Name Value Range Interpretation Description Data Sup porting Code Source(s) Document(s ) 52900-0 NEGATIVE Testing Normal (applies COVID-19.. [facility] [...] Range: NEGATIVE . ID Date Data Source [id number] 05/08/2020 02:01:01 AM EDT [facility] He alth System Name Value Range Interpretation Description Data Sup porting Code Source(s) Document(s ) Bacteria NO GROWTH Culture [facility] identified in Bacteria Blood Health Syst em Blood by Aerobe culture ID Date Data Source [id number] 05/08/2020 02:01:01 AM EDT [facility] He alth [...] Health } System ID Date Data Source [id number] 05/08/2020 02:01:01 AM EDT [facility] He andressa [...] urine test abnormalities ID Date Data Source [id number] 05/08/2020 02:01:01 AM EDDileep Cervantes alth System Name Value Range Interpretation Description Data Source(s ) Supporting Code Document(s ) 11107-5 NEGATIVE Normal (applies to SARS-COV-2 IgG [facility] [...] to pa st or present infection with [id number] coronavirus strains, such as coronavirus HKU1, NL63, OC43, or 229E.Not for the screening of donated blood.This test has been authorized by the FDA under an emergency authorization (EUA) for use by authorized laboratories. Reference Range: Negative . ID Date Data Source [id number] 05/08/2020 02:01:01 AM EDDileep Cervantes alth System Name Value [...] Methadone Negative Normal (applies to Methadone Level, [facility] [Mass/volume] in non-numeric Urine System Urine results) Cut-off = 300 ng/mL Nhogci441,Urine Positive Abnormal (applies to Opiate 300, [facility] non-numeric results) Urine System Cut-off = 300 ng/mL Phencyclidine Negative Normal (applies Phencyclidine, Urine [facility] [Mass/volume] in to non-numeric Health S ystem Urine results) Cut-off = 25 ng/mL Cannabinoid(THC) Negative Normal (applies to Cannabinoid (THC) [facility] Health non-numeric System results) Cutt-off = 50These results are for medic al treatment only. The positive findings are unconfirmed. Request confirmatory/quanti tative test if needed. ID Date Data Source [id number] 05/08/2020 02:01:01 AM EDT [facility] He alth [...] by Automated count ID Date Data Source [id number] 05/08/2020 02:01:01 AM EDT [facility] He alth [...] System Urine results) Cut-off = 300 ng/mL [id number],Urine Positive Abnormal (applies to Opiate 300, M [...] test if needed. ID Date Data Source [id number] 05/08/2020 02:01:01 AM EDT [facility] He alth System Name Value Range Interpretation Description Data Sup porting Code Source(s) Document(s ) Bacteria NO GROWTH Culture [facility] identified in Bacteria Blood Health Syst em Blood by Aerobe culture ID Date Data Source [id number] 05/08/2020 02:01:01 AM EDT [facility] alth System Name Value Range Interpretation Description Data Sup porting Code Source(s) Document(s ) Bacteria NO GROWTH Culture [facility] identified in Bacteria Blood Health Syst em Blood by Aerobe culture ID Date Data Source [id number] 05/08/2020 02:01:01 AM EDT [facility] He alth [...] nuc leic acids ID Date Data Source [id number] 05/08/2020 02:01:01 AM EDT [facility] He alth [...] non-numeric Calcium, VB Health System B results) I5Wvbwln 63.00 % Normal (applies to O2 Saturation* [facility] tion* non-numeric Health System results) ID Date Data Source [id number] 05/08/2020 02:01:01 AM EDT [facility] alth System Name Value Range Interpretation Description Data Sup porting Code Source(s) Document(s ) 82002-1 NEGATIVE Testing Normal (applies COVID-19.. [facility] [...] Range: NEGATIVE . ID Date Data Source [id number] 05/08/2020 02:01:01 AM EDT [facility] He alth [...] Health results) System ID Date Data Source [id number] 05/08/2020 02:01:01 AM EDT [facility] He alth [...] Health } System ID Date Data Source [id number] 05/08/2020 02:01:01 AM EDT [facility] He andressa [...] urine test abnormalities ID Date Data Source [id number] 05/08/2020 02:01:01 AM EDT [facility] alth System Name Value Range Interpretation Description Data Sup porting Code Source(s) Document(s ) aPTT in Blood 30.1 Normal (applies Activated [facility] by Coagulation {Seconds to non-numeric Partial Health assay } results) Thromboplastin System Time ID Date Data Source [id number] 05/08/2020 02:01:01 AM EDT [facility] He alth [...] Heart = 3.0-4.5 ID Date Data Source [id number] 05/08/2020 02:01:01 AM EDT [facility] He alth System Name Value Range Interpretation Description Data Sup porting Code Source(s) Document(s ) Bacteria NO GROWTH Culture [facility] identified in Bacteria Blood Health Syst em Blood by Aerobe culture ID Date Data Source [id number] 05/08/2020 02:01:01 AM EDT [facility] alth [...] Health results) System ID Date Data Source [id number] 05/08/2020 02:01:01 AM EDT [facility] [...] by Automated count ID Date Data Source [id number] 05/08/2020 02:01:01 AM EDT [facility] System Name Value Range Interpretation Description Data Sup porting Code Source(s) Document(s ) Magnesium 2.0 Normal (applies Magnesium, [facility] [Mass/volume] {mEq/L} to non-numeric Serum Health Syst em in Serum or results) Plasma ID Date Data Source [id number] 05/08/2020 02:01:01 AM EDT [facility] [...] urine test abnormalities ID Date Data Source [id number] 05/08/2020 02:01:01 AM EDT Janie Cervantes alth System Name Value Range Interpretation Description Data Sup porting Code Source(s) Document(s ) aPTT in Blood 28.7 Normal (applies Activated [facility] by Coagulation {Seconds to non-numeric Partial Health assay } results) Thromboplastin System Time ID Date Data Source [id number] 05/08/2020 02:01:01 AM EDT [facility] alth [...] Heart = 3.0-4.5 ID Date Data Source [id number] 05/08/2020 02:01:01 AM EDT [facility] System Name Value Range Interpretation Description Data Sup porting Code Source(s) Document(s ) TissueExam Results for case # Normal (applies Tissue Exam [facility] [id number] to non-[facility] SURGICAL PATHOLOGY results) System REPORTCLINICAL INFORMATION: [...] one cassette.MV/stPage 1 of 1Testing performed at [facility], [address] [place] [address]. ID Date Data Source [id number] 05/08/2020 02:01:[address] [facility] Percolate System Source Description: c/a wound left side neck baseSpecimen Description: c/s wound left side neck base Name Value Range Interpretation Description Data Sup porting Code Source(s) Document(s ) Bacteria Micro Result Normal (applies Culture, Wound [facility] identified in to non-[facility] Wound by results) System Culture XXX Staphylococcus Organism [facility] microorganism [facility] serotype System [Identifier] in Isolate by Agglutination ColonyCount MANY Divide Count [facility] Vancomycin [facility] Health for this System isolate [...] Health ty] System ID Date Data Source [id number] 05/08/2020 02:01:01 AM EDT [facility] andressa [...] Health } System ID Date Data Source [id number] 10/05/2013 12:00:00 AM OLIVE Cervantes alth System Name Value Range Interpretation Description Data Sup porting Code Source(s) Document(s ) TissueExam SEE TEXT Normal (applies Tissue Exam [facility] SURGICAL to non-numeric Health PATHOLOGY results) System REPORTCLINICAL INFORMATION: Missed .PREOPER ATIVE DIAGNOSIS: Same.POSTOPERATI VE DIAGNOSIS:FINAL DIAGNOSIS:Uterin e curettings:Produ cts of conception, hemorrhagic and acutely inflamed.GO/cmGR OSS DESCRIPTION:In formalin, labeled "uterine contents", the specimen consists of a 6.5 x 6.0 x 1.5 cm aggregate of pink-red, spongy tissue. A small amount of possible papilliferous tissue is identified. No parts are grossly identified. Cupola Patcher Helper sections are submitted in four cassettes.PT/cmE lectronically signed [email or web address](Signed out 10/06/2013) ID Date Data Source [id number] 10/05/2013 11:08:00 AM OLIVE Cervantes alth System Name Value Range Interpretation Description Data Sup porting Code Source(s) Document(s ) D Ab [Titer] in Cancelled Rh [facility] Serum or Plasma duplicate/guill[facility] Health cceptable System specimen AntibodyScreen Cancelled Antibody [facility] duplicate/guillermo Screen Health cceptable System specimen- no handwritten info Type Cancelled Type [facility] duplicate/gu[facility] Health cceptable System specimen ID Date Data Source [id number] 10/05/2013 11:08:00 AM [facility] System Name Value Range Interpretation Description Data Sup porting Code Source(s) Document(s ) Deprecated NO GROWTH Aerobic [facility] Bacteria Culture, Urine Health System identified in Urine by Aerobe culture ID Date Data Source [id number] 10/05/2013 11:08:00 AM OLIVE Cervantes al[facility] System Name Value Range Interpretation Description Data Sup porting Code Source(s) Document(s ) Appearance of CLEAR Normal (applies Urine [facility] Urine to non-numeric Appearance Health results) System Specific gravity 1.016 Normal (applies Urine Specific [facility] of Urine to non-numeric [facility] results) System Color Yellow Normal (applies [...] non-numeric System results) ID Date Data Source [id number] 10/05/2013 11:08:00 AM EST [facility] alth [...] System Automated count ID Date Data Source [id number] 10/05/2013 11:08:00 AM EST [facility] [...] quantitative testing recommened. ID Date Data Source [id number] 10/05/2013 11:08:00 AM EST [facility] [...] Health results) System ID Date Data Source [id number] 10/05/2013 01:56:00 PM EST [facility] System Name Value Range Interpretation Description Data Sup porting Code Source(s) Document(s ) Type O Normal (applies Type [facility] to non-numeric Health results) System D Ab [Titer] in Positive Normal (applies Rh [facility] Serum or Plasma to non-numeric Health results) System AntibodyScreen Negative Normal (applies Antibody [facility] to non-numeric Screen Health results) System ID Date Data Source [id number] 10/05/2013 01:56:00 PM EST Janie Cervantes alth [...] Heart = 3.0-4.5 ID Date Data Source [id number] 02/07/2019 08:42:00 AM EDT [facility] Cervantes alth [...] WBC} results) System ID Date Data Source [id number] 02/07/2019 08:42:00 AM EDT [facility] System Name Value Range Interpretation Description Data Source(s ) Supporting Code Document(s ) Reagin Ab Non-react Normal (applies to RPR. [facility] [Presence] greg non-numeric Health System in Serum by results) RPR ID Date Data Source [id number] 02/07/2019 08:47:00 AM EDT [facility] alth [...] should be ordered. ID Date Data Source [id number] 02/07/2019 08:47:00 AM EDT [facility]ressa System Name Value Range Interpretation Description Data Sup porting Code Source(s) Document(s ) Appearance of CLEAR Normal (applies Urine [facility] Urine to non-numeric Appearance Health results) System Color YELLOW Normal (applies Color [facility] to non-numeric Health results) System Specific gravity > 1.030 Normal (applies Urine Specific [facility] of Urine to non-numeric [facility] results) System pH.. 5.5 Normal (applies [...] low power field ID Date Data Source [id number] 02/07/2019 08:47:00 AM EDDileep Cervantes alth System [...] Serum or Plasma results) <200 mg/dL = [id number] - 239 md/dL = Borderline>240 mg/dL = [...] Health System results) ID Date Data Source [id number] 02/07/2019 08:47:00 AM EDDileep Cervantes alth System [...] urine test abnormalities ID Date Data Source [id number] 02/17/2019 11:12:00 AM EDT Janie crisostomo System Name Value Range [...] totoxic T-lymphocytes.For additional information, please refer [email or web address](This link is being provided for informational/educ ational purposes only.)Test Performed at:[facility], [place], [place] [address]Giancarlo Reno M.D. TB1-NIL < 0.00 Normal (applies to TB1-NIL [facility] Health non-numeric results) System Mitogen-NIL 8.14 {IU/mL} Normal (applies to Mitogen-NIL [facility] non-numeric results) System ID Date Data Source [id number] 02/27/2019 08:40:00 PM EDT [facility] alth [...] System Urine results) Cut-off = 300 ng/mL [id number],Urine Positive Abnormal (applies to Opiate 300, [facility] non-numeric results) Urine System Cut-off = 300 ng/mL Cannabinoid(THC) Negative Normal (applies to Cannabinoid (THC) [facility] non-numeric System results) Cutt-off = 50These results are for medic al treatment only. The positive findings are unconfirmed. Request confirmatory/quanti tative test if needed. Phencyclidine Negative Normal (applies Phencyclidine, Urine [facility]) Cut-off = 25 ng/mL ID Date Data Source [id number] 04/28/2020 07:34:00 PM EDT [facility] Name Value Range Interpretation Code Description Data Nica rce(s) Supporting Document(s ) COVID-19.. [facility] This lab was ordered by [facility] and reported by [facility]. ID Date Data Source [id number] 04/26/2020 02:57:00 AM EDT [facility] Name Value Range Interpretation Code Description Data Nica rce(s) Supporting Document(s ) COVID-19.. [facility] This lab was ordered by [facility] and reported by [facility]. ID Date Data Source [id number] 04/26/2020 02:07:00 AM EDT [facility] HISTORY: Pt injected IV drugs in neck no w has swelling at thebase of the L part of the neck;COMPARISON: None.TECHNIQUE: [facility] CT axial images are obtained from [...] at 0250 Reportedand signed by: Joanna Artis MDEnpiedmont mountainside hospitalion Physician ServicesSHCR DR BEKAH [phone] Signed:Joanna Artis MD2020/04/26 at 2:49 [phone], Service support -[phone], [phone] Name Value Range Interpretation Code Description Data Nica rce(s) Supporting Document(s ) Procedure Vital Signs ID Date Data Source UNK Name Value Range Interpretation Code Description Data Source(s) Body surface area 1.8 m2 1.8 m2 [facility] Derived from [place] m formula Body mass index 0.6 kg/m2 0.6 kg/m2 [facility] (BMI) [Ratio] Health Syst em Body weight 71.66 kg 71.66 kg [facility] Body height 167.64 cm 167.64 cm [facility] System Body temperature 98.4 [degF] 0 - 200 Normal (applies to 98.4 [degF ] [facility] non-numeric results) [facility] Body temperature 36.8 Concepcion 0 - 99.9 Normal (applies to 36.8 Concepcion [facility] non-numeric results) [facility] Diastolic blood 75 mm[Hg] 0 - 999 Normal (applies to 75 mm[Hg] M [facility] pressure non-numeric results) [facility] Systolic blood 139 mm[Hg] 0 - 999 Normal (applies to 139 mm[Hg] [facility] pressure non-numeric results) [facility] Oxygen saturation 100 % 0 - 999 Normal (applies to 100 % [facility] in Arterial blood non-numeric results) Health System by Pulse oximetry Respiratory rate 19 0 - 999 Above high normal 19 [facility] Heart rate 98 0 - 999 Normal (applies to 98 [facility] non-numeric results) [facility] Body mass index 26.1 kg/m2 26.1 kg/m2 [facility] (BMI) [Ratio] Health Syst em Systolic blood 115 mm[Hg] 0 - 999 Normal (applies to 115 mm[Hg] [facility] pressure non-numeric results) [facility] Oxygen saturation 100 % 0 - 999 Normal (applies to 100 % [facility] in Arterial blood non-numeric results) Health System by Pulse oximetry Respiratory rate 17 0 - 999 Normal (applies to 17 [facility] non-numeric results) [facility] Heart rate 54 0 - 999 Below low normal 54 [facility] System Body temperature 98.3 [degF] 0 - 200 Normal (applies to 98.3 [degF ] [facility] non-numeric results) [facility] Body temperature 36.8 Concepcion 0 - 99.9 Normal (applies to 36.8 Concepcion [facility] non-numeric results) [facility] Diastolic blood 58 mm[Hg] 0 - 999 Below low normal 58 mm[Hg] [facility] pressure [facility] System Body surface area 1.8 m2 1.8 m2 [facility] Derived from Health Syste m formula Body weight 73.[address] [facility] Body height 167.[address] [facility] Body temperature 36.2 Concepcion 0 - 99.9 Below low normal 36.2 Concepcion [facility] Body temperature 97.2 [degF] 0 - 200 Normal (applies to 97.2 [degF ] [facility] Diastolic blood 72 mm[Hg] 0 - 999 Normal (applies to 72 mm[Hg] M [facility] pressure non-numeric results) [facility] Systolic blood 124 mm[Hg] 0 - 999 Normal (applies to 124 mm[Hg] [facility] pressure non-[facility] results) [facility] Oxygen saturation 100 % 0 - 999 Normal (applies to 100 % [facility] in Arterial blood non-numeric results) [facility] System by Pulse oximetry Respiratory rate 17 0 - 999 Normal (applies to 17 [facility] non-numeric results) [facility] Heart rate 64 0 - 999 Normal (applies to 64 [facility] non-numeric results) [facility] Body surface area 1.8 m2 1.8 m2 [facility] Derived from [employer] Syste m formula Body mass index 26.7 kg/m2 26.7 kg/m2 [facility] e (BMI) [Ratio] Health Syst em Body weight 73.[address] [facility] Body height 165.[address] [facility] Patient Treatment Plan of Care Planned Activity Planned Date Details Description Data Source (s) Sulfamethoxazole 800 MG / 04/30/2020 [facility] Trimethoprim 160 MG Oral 08:02:39 AM EDT System Tablet 24 HR Nicotine 0.583 MG/HR 04/30/2020 [facility] Transdermal Patch 08:01:19 AM EDT System Albuterol (Eqv-ProAir HFA) 04/30/2020 [facility] 90 mcg/inh inhalation 08:00:26 AM EDT Sys tem aerosol Albuterol 03/05/2019 [facility] 02:28:53 PM EDT System Mupirocin 0.02 MG/MG 03/05/2019 [facility] Topical Ointment 02:27:10 PM EDT System Albuterol 0.833 MG/ML / 03/05/2019 [facility] Ipratropium [place] 0.167 02:26:13 PM EDT System MG/ML Inhalant Solution Acetaminophen 325 MG [facility] Tablet 02:25:54 PM EDT System
[2020-05-13] MEDS ORDERED: METHADONE HCL 10 MG TABLET (FOR DETOX USE ONLY) PO ONE (23:45)
[2020-05-14] MEDS: THIAMINE HCL 100 MG TABLET (FP) PO SCH ×2 (01:00→22:47)
[2020-05-14] MEDS ORDERED: METHADONE HCL 5 MG TABLET (FOR DETOX USE ONLY) ONE (09:37)
[2020-05-14] MEDS ORDERED: METHADONE HCL 10 MG TABLET (FOR DETOX USE ONLY) ONE (09:38)
[2020-05-14] MEDS ORDERED: METHADONE (DETOX) 20 MG, METHADONE (DETOX) 5 MG PO ONE (10:00)
--- NOTE | 2020-05-14 10:09 | EKG ---
Test Reason : Blood Pressure : / mmHG Vent. Rate : 046 BPM Atrial Rate : 046 BPM P-R Int : 172 ms QRS Dur : 076 ms QT Int : 450 ms P-R-T Axes : 067 071 056 degrees QTc Int : 393 ms SINUS BRADYCARDIA WITH SINUS ARRHYTHMIA OTHERWISE NORMAL ECG WHEN COMPARED WITH ECG OF 20-JUL-2017 17:12, NO SIGNIFICANT CHANGE WAS FOUND Confirmed by MD Asher Daniel ([id number]) on 05/14/2020 10:09:36 AM Referred By: Confirmed By:Humberto Asher MD
--- NOTE | 2020-05-14 10:32 | PN ---
BHS COWS - Scale Resting Pulse: 0= [place] 80 or Below Sweatin= Chills/Flushing Restless Observation: 1= Difficult to Sit Still Pupil Size: 0= Normal to Room Light Bone or Joint Aches: 2= Severe Diffuse Aches Runny Nose/ Eye Tearin= Nasal Congestion GI Upset > 30mins: 0= None Tremor Observation of Outstretched Hands: 1= Tremor [place], Not Seen Yawning Observation: 2= >3x During Session Anxiety or Irritability: 2=Irritable/Anxious Goose Flesh Skin: 0=Smooth Skin COWS Score: 10 BHS Progress Note (SOAP) Subjective: sweats shakes body aches interrupted sleep irritable Objective: 05/14/20 11:14 Vital Signs Temperature 97.8 F 05/14/20 08:56 Pulse Rate 62 05/14/20 08:56 Respiratory Rate 18 05/14/20 08:56 Blood Pressure 101/62 05/14/20 08:56 O2 Sat by Pulse Oximetry (%) 98 05/14/20 08:56 labs pending aaox3 ambulating no acute distress Assessment: 05/14/20 11:14 withdrawals Plan: continue detox
[2020-05-14] MEDS: NICOTINE 21 MG/24 HOURS TOPICAL PATCH TD SCH (10:49)
[2020-05-14] MEDS: PRENATAL VITAMINS W/ FOLIC ACID TABLET (FP) PO SCH (10:49)
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
[2020-05-14 11:50] LABS: HEMATOCRIT 35.4 % (32.4-45.2); HEMOGLOBIN 11.8 GM/dL (10.7-15.3); MCH 30.3 pg (25.7-33.7); MCHC 33.3 g/dl (32.0-36.0); MEAN CELL VOLUME 91.1 fl (80-96); MEAN PLT VOLUME 8.8 fl (7.5-11.1); PLATELET COUNT 312 K/MM3 (134-434); RBC 3.89 M/mm3 (3.60-5.2); RDW 13.5 % (11.6-15.6); WHITE BLOOD COUNT 8.6 K/mm3 (4.0-10.0)
[2020-05-14 12:04] LABS: ALBUMIN 3.1 g/dl (3.4-5.0); BILIRUBIN,TOTAL 0.6 mg/dL (0.2-1); BLOOD UREA NITROGEN 15.6 mg/dL (7-18); CALCIUM 8.7 mg/dL (8.5-10.1); CREATININE 0.6 mg/dL (0.55-1.3); POTASSIUM 4.1 mmol/L (3.5-5.1); TOT PROT 6.5 g/dl (6.4-8.2)
[2020-05-14] MEDS ORDERED: QUEtiapine FUMARATE 50 MG TABLET PO SCH (22:00)
[2020-05-14] MEDS ORDERED: SUVOREXANT 10 MG TABLET PO PRN (22:00)
[2020-05-14] MEDS: METHOCARBAMOL 500 MG TABLET PO PRN (22:49)
[2020-05-15] MEDS ORDERED: METHADONE HCL 10 MG TABLET (FOR DETOX USE ONLY) PO ONE (10:00)
[2020-05-15] MEDS: NICOTINE 21 MG/24 HOURS TOPICAL PATCH TD SCH (10:13)
[2020-05-15] MEDS: PRENATAL VITAMINS W/ FOLIC ACID TABLET (FP) PO SCH (10:13)
[2020-05-15] MEDS: METHOCARBAMOL 500 MG TABLET PO PRN (10:14)
--- NOTE | 2020-05-15 13:36 | PN ---
[facility] COWS - Scale Resting Pulse: 0= [place] 80 or Below Sweatin= Chills/Flushing Restless Observation: 1= Difficult to Sit Still Pupil Size: 0= Normal to Room Light Bone or Joint Aches: 2= Severe Diffuse Aches Runny Nose/ Eye Tearin= Nasal Congestion GI Upset > 30mins: 0= None Tremor Observation of Outstretched Hands: 1= Tremor [place], Not Seen Yawning Observation: 1= 1-2x During Session Anxiety or Irritability: 2=Irritable/Anxious Goose Flesh Skin: 0=Smooth Skin COWS Score: 9 BHS Progress Note (SOAP) Subjective: sweats shakes body aches interrupted sleep agitation Objective: 05/15/20 13:53 Vital Signs Temperature 98.5 F 05/15/20 08:55 Pulse Rate 51 L 05/15/20 08:55 Respiratory Rate 18 05/15/20 08:55 Blood Pressure 131/59 L 05/15/20 08:55 O2 Sat by Pulse Oximetry (%) 96 05/15/20 08:55 Laboratory Tests 05/13/20 05/13/20 05/14/20 07:30 18:59 07:00 WBC 8.6 RBC 3.89 Hgb 11.8 Hct 35.4 MCV 91.1 MCH 30.3 MCHC 33.3 RDW 13.5 Plt Count 312 D MPV 8.8 Sodium Potassium Chloride Carbon Dioxide Anion Gap BUN Creatinine Est GFR (CKD-EPI)AfAm Est GFR (CKD-EPI)NonAf Random Glucose Calcium Total Bilirubin AST ALT Alkaline Phosphatase Total Protein Albumin POC Urine HCG, Qual Negative Syphilis Serology Non-reactive 05/14/20 07:30 WBC RBC Hgb Hct MCV MCH MCHC RDW Plt Count MPV Sodium 139 Potassium 4.1 Chloride 105 Carbon Dioxide 29 Anion Gap 5 L BUN 15.6 Creatinine 0.6 Est GFR (CKD-EPI)AfAm 126.69 Est GFR (CKD-EPI)NonAf 109.31 Random Glucose 84 Calcium 8.7 Total Bilirubin 0.6 AST 16 ALT 22 Alkaline Phosphatase 73 Total Protein 6.5 Albumin 3.1 L POC Urine HCG, Qual Syphilis Serology labs noted aaox3 ambulating no acute distress Assessment: 05/15/20 13:54 withdrawals Plan: continue detox increase fluids
[2020-05-15 17:12] VITALS: BP 155/79; PULSE 84; TEMP 97.8
--- NOTE | 2020-05-15 17:30 | DS ---
[facility] Detox Discharge Summary Admission Date: 05/13/20 Discharge Date: 05/15/20 - History Present History: Cocaine Dependence, Opioid Dependence Additional Comments: Detox protocol not completed, patient very agitated, anxious and sweaty but insisting on leaving now. Encouraged to stay but refused. Alert and oriented x3, in no acute respiratory distress. Full ROM, ambulatory in the unit. Pertinent Past History: History of Asthma, heroin, nicotine and cocaine use disorder. - Physical Exam Results Vital Signs: Vital Signs Temperature 97.8 F 05/15/20 17:11 Pulse Rate 84 05/15/20 17:11 Respiratory Rate 16 05/15/20 17:11 Blood Pressure 155/79 05/15/20 17:11 O2 Sat by Pulse Oximetry (%) 99 05/15/20 17:11 Vital Signs 05/15/20 05/15/20 13:10 17:11 Temperature 98.0 F 97.8 F Pulse Rate 51 L 84 Respiratory 16 16 Rate Blood Pressure 126/73 155/79 O2 Sat by Pulse 100 99 Oximetry (%) Laboratory Last Values WBC 8.6 K/mm3 (4.0-10.0) 05/14/20 07:00 RBC 3.89 M/mm3 (3.60-5.2) 05/14/20 07:00 Hgb 11.8 GM/dL (10.7-15.3) 05/14/20 07:00 Hct 35.4 % (32.4-45.2) 05/14/20 07:00 MCV 91.1 fl (80-96) 05/14/20 07:00 MCH 30.3 pg (25.7-33.7) 05/14/20 07:00 MCHC 33.3 g/dl (32.0-36.0) 05/14/20 07:00 RDW 13.5 % (11.6-15.6) 05/14/20 07:00 Plt Count 312 K/MM3 (134-434) D 05/14/20 07:00 MPV 8.8 fl (7.5-11.1) 05/14/20 07:00 Sodium 139 mmol/L (136-145) 05/14/20 07:30 Potassium 4.1 mmol/L (3.5-5.1) 05/14/20 07:30 Chloride 105 mmol/L (98-107) 05/14/20 07:30 Carbon Dioxide 29 mmol/L (21-32) 05/14/20 07:30 Anion Gap 5 MMOL/L (8-16) L 05/14/20 07:30 BUN 15.6 mg/dL (7-18) 05/14/20 07:30 Creatinine 0.6 mg/dL (0.55-1.3) 05/14/20 07:30 Est GFR (CKD-EPI)AfAm 126.69 05/14/20 07:30 Est GFR (CKD-EPI)NonAf 109.31 05/14/20 07:30 Random Glucose 84 mg/dL (74-106) 05/14/20 07:30 Calcium 8.7 mg/dL (8.5-10.1) 05/14/20 07:30 Total Bilirubin 0.6 mg/dL (0.2-1) 05/14/20 07:30 AST 16 U/L (15-37) 05/14/20 07:30 ALT 22 U/L (13-61) 05/14/20 07:30 Alkaline Phosphatase 73 U/L (45-117) 05/14/20 07:30 Total Protein 6.5 g/dl (6.4-8.2) 05/14/20 07:30 Albumin 3.1 g/dl (3.4-5.0) L 05/14/20 07:30 POC Urine HCG, Qual Negative 05/13/20 18:59 Syphilis Serology Non-reactive (NONREACTIVE) 05/13/20 07:30 Labs noted. Pertinent Admission Physical Exam Findings: Withdrawal symptoms. - Medication Discharge Medications: Ambulatory Orders NK [No Known Home Medication] 05/13/20 - Diagnosis (1) Cocaine dependence Current Visit: Yes Status: Chronic Qualifiers: Substance use status: uncomplicated Qualified Code(s): F14.20 - Cocaine dependence, uncomplicated (2) Opioid dependence with withdrawal Current Visit: Yes Status: Acute (3) Asthma Current Visit: Yes Status: Chronic Qualifiers: Asthma severity: mild Asthma persistence: unspecified Asthma complication type: uncomplicated Qualified Code(s): J45.909 - Unspecified asthma, uncomplicated (4) Nicotine dependence Current Visit: Yes Status: Chronic Qualifiers: Nicotine product type: cigarettes Substance use status: uncomplicated Qualified Code(s): F17.210 - Nicotine dependence, cigarettes, uncomplicated - AMA Did Patient Leave Against Medical Advice: Yes
[2020-05-16] MEDS ORDERED: METHADONE (DETOX) 10 MG, METHADONE (DETOX) 5 MG PO ONE (10:00)
[2020-05-17] MEDS ORDERED: METHADONE HCL 10 MG TABLET (FOR DETOX USE ONLY) PO ONE (10:00)
[2020-05-18] MEDS ORDERED: METHADONE HCL 5 MG TABLET (FOR DETOX USE ONLY) PO ONE (06:00)
== END 2020-05-15 17:45 | disposition left against medical advice (07) | DRG 770 ==
LOC: YASAS 17:14 → Y6N 23:27
PROVIDERS: ADMIT Allergy & Immunology; ATTEND Allergy & Immunology
PROC: HZ2ZZZZ Detoxification Services for Substance Abuse Treatment (ICD-10-PCS; principal; 2020-05-13)
DX: F11.23 Opioid dependence with withdrawal (principal); F14.20 Cocaine dependence, uncomplicated; F17.210 Nicotine dependence, cigarettes, uncomplicated; F19.282 Other psychoactive substance dependence with psychoactive substance-induced sleep disorder; F19.24 Other psychoactive substance dependence with psychoactive substance-induced mood disorder; F32.9 Major depressive disorder, single episode, unspecified; J44.9 Chronic obstructive pulmonary disease, unspecified; Z62.810 Personal history of physical and sexual abuse in childhood; Z91.410 Personal history of adult physical and sexual abuse; Z91.14 Patient's other noncompliance with medication regimen; Z91.013 Allergy to seafood
CPT/HCPCS: 36415; 80053; 81025; 85027; 86780; 93005; 93010; C9803; U0003

== ENCOUNTER 2021-03-31 11:03 | Inpatient (IN) | payer OTHER ==
[2021-03-31 11:57] VITALS: BMI 24.4
[2021-03-31] MEDS ORDERED: clonazePAM 0.5 MG ODT TABLETS SL PRN (12:23)
[2021-03-31] MEDS ORDERED: ONDANSETRON *ODT* 4 MG TABLET SL PRN (12:23)
[2021-03-31] MEDS ORDERED: BISMUTH SUBSALICYLATE 262 MG/15 ML BTL PO PRN (12:23)
[2021-03-31] MEDS ORDERED: methaDONE HCL 10 MG TABLET (FOR DETOX USE ONLY) PO ONE (12:23)
[2021-03-31] MEDS ORDERED: MAGNESIUM HYDROX 2400MG/30ML ORAL SUSPENSION 30 ML CUP PO PRN (12:23)
[2021-03-31] MEDS ORDERED: MAGNESIUM CITRATE 300 ML BOTTLE PO PRN (12:23)
[2021-03-31] MEDS ORDERED: cloNIDine HCL 0.1 MG TABLET PO PRN (12:23)
[2021-03-31] MEDS ORDERED: NICOTINE 10 MG CARTRIDGE (INHALER) IH PRN (12:23)
[2021-03-31] MEDS ORDERED: MENTHOL/PHENOL 1 EACH UD MM PRN (12:23)
[2021-03-31] MEDS ORDERED: ACETAMINOPHEN 325 MG TABLET (FP) PO PRN ×2 (12:23)
[2021-03-31] MEDS ORDERED: MAG HYDROX/AL HYDROX/SIMETH 30 ML UNIT-DOSE CUP PO PRN (12:23)
[2021-03-31] MEDS: METHOCARBAMOL 500 MG TABLET PO PRN ×2 (13:17→21:58)
[2021-03-31] MEDS: PRENATAL VITAMINS W/ FOLIC ACID TABLET (FP) PO SCH (13:18)
[2021-03-31] MEDS: hydrOXYzine PAMOATE 25 MG CAPSULE (FP) PO SCH ×3 (13:19→21:56)
[2021-03-31] MEDS: NICOTINE 14 MG/24 HOURS TOPICAL PATCH TD SCH (13:29)
[2021-03-31] MEDS: diazePAM 5 MG TABLET PO SCH ×2 (17:33→21:59)
[2021-03-31] MEDS: THIAMINE HCL 100 MG TABLET (FP) PO SCH (21:56)
[2021-03-31] MEDS ORDERED: MELATONIN 5 MG TABLETS PO SCH (22:00)
[2021-04-01] MEDS: IBUPROFEN 400 MG TABLET (FP) PO PRN ×2 (06:04→14:21)
[2021-04-01] MEDS: diazePAM 5 MG TABLET PO SCH ×4 (06:05→22:12)
[2021-04-01] MEDS: hydrOXYzine PAMOATE 25 MG CAPSULE (FP) PO SCH ×5 (06:05→22:15)
[2021-04-01] MEDS ORDERED: methaDONE HCL 10 MG TABLET (FOR DETOX USE ONLY) ONE (09:00)
[2021-04-01] MEDS: NICOTINE 14 MG/24 HOURS TOPICAL PATCH TD SCH (10:03)
[2021-04-01] MEDS: PRENATAL VITAMINS W/ FOLIC ACID TABLET (FP) PO SCH (10:04)
[2021-04-01] MEDS: METHOCARBAMOL 500 MG TABLET PO PRN ×2 (10:06→17:50)
[2021-04-01] MEDS: diazePAM 5 MG TABLET PO PRN (14:22)
[2021-04-01] MEDS ORDERED: SUVOREXANT 10 MG TABLET PO PRN (22:00)
[2021-04-01] MEDS ORDERED: QUEtiapine FUMARATE 100 MG TABLET (FP) PO SCH (22:00)
[2021-04-01] MEDS: THIAMINE HCL 100 MG TABLET (FP) PO SCH (22:12)
[2021-04-02] MEDS: hydrOXYzine PAMOATE 25 MG CAPSULE (FP) PO SCH ×2 (05:11→10:22)
[2021-04-02] MEDS: METHOCARBAMOL 500 MG TABLET PO PRN (05:12)
[2021-04-02] MEDS ORDERED: diazePAM 5 MG TABLET PO SCH (06:00)
[2021-04-02 09:20] VITALS: BP 142/67; PULSE 71; TEMP 98.4
[2021-04-02] MEDS ORDERED: methaDONE HCL 10 MG TABLET (FOR DETOX USE ONLY) PO ONE (10:00)
[2021-04-02] MEDS: NICOTINE 14 MG/24 HOURS TOPICAL PATCH TD SCH (10:20)
[2021-04-02] MEDS: diazePAM 5 MG TABLET PO PRN (10:20)
[2021-04-02] MEDS: PRENATAL VITAMINS W/ FOLIC ACID TABLET (FP) PO SCH (10:21)
[2021-04-03] MEDS ORDERED: diazePAM 5 MG TABLET PO SCH (06:00)
[2021-04-04] MEDS ORDERED: diazePAM 5 MG TABLET PO ONE (06:00)
[2021-04-04] MEDS ORDERED: methaDONE HCL 10 MG TABLET (FOR DETOX USE ONLY) PO ONE (10:00)
== END 2021-04-02 11:31 | disposition left against medical advice (07) | DRG 770 ==
LOC: YASAS 11:03 → Y6N 12:38
PROVIDERS: ADMIT Allergy & Immunology; ATTEND Allergy & Immunology
PROC: HZ2ZZZZ Detoxification Services for Substance Abuse Treatment (ICD-10-PCS; principal; 2021-03-31)
DX: F11.23 Opioid dependence with withdrawal (principal); F10.230 Alcohol dependence with withdrawal, uncomplicated; F14.20 Cocaine dependence, uncomplicated; F17.210 Nicotine dependence, cigarettes, uncomplicated; F19.282 Other psychoactive substance dependence with psychoactive substance-induced sleep disorder; F19.24 Other psychoactive substance dependence with psychoactive substance-induced mood disorder; Z62.810 Personal history of physical and sexual abuse in childhood; Z87.2 Personal history of diseases of the skin and subcutaneous tissue; Z91.410 Personal history of adult physical and sexual abuse; Z56.0 Unemployment, unspecified; Z91.018 Allergy to other foods
CPT/HCPCS: 81025; C9803; U0003; U0005